=== PATIENT | male | born 1960 | race Caucasian/White ===

== ENCOUNTER → 2020-04-20 09:20 | Outpatient (BNVA) | payer BC, SELFPAY | PROVIDERS: PCP Internal Medicine; Visit Provider Urology | DX: Z76.89 Persons encountering health services in other specified circumstances (principal) ==

== ENCOUNTER → 2020-06-08 14:00 | Outpatient (BNVA) | payer BC, SELFPAY | PROVIDERS: PCP Internal Medicine; Visit Provider Surgery ==

== ENCOUNTER 2020-08-29 10:11 | Outpatient (REF) | payer BC, SELFPAY ==
[2020-08-29 10:14] LABS: MANUAL DIFF FLAG NO
[2020-08-29 10:29] LABS: Basophils Percent Auto 0.7 % (0-2); Eosinophils Absolute Auto 0.3 X10*3/uL (0.0-0.4); Eosinophils Percent Auto 4.8 % (0-4); Hematocrit 43.8 % (42-52); Hemoglobin 14.8 g/dl (14.0-18.0); Imm Gran Abs Auto 0.01 X10*3/uL (0.00-0.03); Imm Gran Pct Auto 0.2 % (0.0-0.4); Lymphocytes Absolute Auto 2.8 X10*3/uL (1.2-4.9); Lymphocytes Percent Auto 47.5 % (20-40); Mean Corpuscular HGB Conc 33.8 g/dl (31.0-36.0); Mean Corpuscular Volume 94.6 fL (80-98); Monocytes Absolute Auto 0.5 X10*3/uL (0.1-1.2); Monocytes Percent Auto 7.9 % (2-11); Neutrophils Absolute Auto 2.3 X10*3/uL (2.0-8.3); Neutrophils Percent Auto 38.9 % (45-73); Platelet Count 280 X10*3/uL (160-400); Red Blood Count 4.63 X10*6/uL (4.60-5.80); Red Cell Distribution Width 11.5 % (11.0-16.0); White Blood Count 5.8 X10*3/uL (4.8-10.8)
[2020-08-29 10:50] LABS: Estimated Average Glucose 103 mg/dL; Hemoglobin A1c % 5.2 %
[2020-08-29 10:53] LABS: Glucose Urine UA NEG (NEG); Leukocyte Esterase Urine NEG (NEG); Nitrite Urine NEG (NEG); Urine Blood NEG (NEG); Urine Ketones NEG (NEG); Urine Protein NEG (NEG-TRACE)
[2020-08-29 10:57] LABS: Appearance Urine CLEAR; Color Urine YELLOW
[2020-08-29 11:01] LABS: Alanine Aminotransferase 21 U/L (0-40); Albumin Level 4.4 g/dL (3.5-5.0); Alkaline Phosphatase 73 U/L (39-117); Anion Gap 14 (12-20); Aspartate Amino Transferase 18 U/L (5-37); Bilirubin Total 1.3 mg/dL (0.0-1.0); Blood Urea Nitrogen 14 mg/dL (9-16); Calcium 9.4 mg/dL (8.4-10.2); Carbon Dioxide 26 mmol/L (22-29); Chloride 105 mmol/L (96-108); Cholesterol 229 mg/dL; Estimated Glomerular Filt Rate > 60; Glucose Fasting 93 mg/dL (60-99); HDL Cholesterol 56 mg/dL; LDL Cholesterol Calculated 148 mg/dl; Potassium 4.4 mmol/L (3.3-5.1); Sodium 141 mmol/L (135-145); Triglycerides 126 mg/dL
[2020-08-29 11:26] LABS: PSA,Total (Free>4and<10) 0.49 ng/mL (0.00-4.00)
== END 2020-08-29 10:12 | disposition home or self-care (01) ==
LOC: HO.LNP 10:11
PROVIDERS: Visit Provider Internal Medicine
DX: Z00.00 Encounter for general adult medical examination without abnormal findings (principal); Z12.5 Encounter for screening for malignant neoplasm of prostate; R73.03 Prediabetes; E78.00 Pure hypercholesterolemia, unspecified; N40.0 Benign prostatic hyperplasia without lower urinary tract symptoms
CPT/HCPCS: 80053; 80061; 81003; 83036; 84153; 85025

== ENCOUNTER 2020-09-05 16:11 | Outpatient (REF) | payer BC, SELFPAY ==
[2020-09-05 16:15] LABS: MANUAL DIFF FLAG NO
[2020-09-05 16:18] LABS: Basophils Percent Auto 0.8 % (0-2); Eosinophils Absolute Auto 0.2 X10*3/uL (0.0-0.4); Eosinophils Percent Auto 3.5 % (0-4); Hematocrit 40.1 % (42-52); Hemoglobin 14.1 g/dl (14.0-18.0); Imm Gran Abs Auto 0.01 X10*3/uL (0.00-0.03); Imm Gran Pct Auto 0.2 % (0.0-0.4); Lymphocytes Absolute Auto 1.9 X10*3/uL (1.2-4.9); Lymphocytes Percent Auto 35.6 % (20-40); Mean Corpuscular HGB Conc 35.2 g/dl (31.0-36.0); Mean Corpuscular Hemoglobin 32.9 pg (27.0-33.0); Mean Corpuscular Volume 93.5 fL (80-98); Mean Platelet Volume 10.3 fL (9.4-12.4); Monocytes Absolute Auto 0.4 X10*3/uL (0.1-1.2); Monocytes Percent Auto 7.3 % (2-11); Neutrophils Absolute Auto 2.7 X10*3/uL (2.0-8.3); Neutrophils Percent Auto 52.6 % (45-73); Platelet Count 264 X10*3/uL (160-400); Red Blood Count 4.29 X10*6/uL (4.60-5.80); Red Cell Distribution Width 11.4 % (11.0-16.0); White Blood Count 5.2 X10*3/uL (4.8-10.8)
== END 2020-09-05 16:12 | disposition home or self-care (01) ==
LOC: HO.LNP 16:11
PROVIDERS: Visit Provider Internal Medicine
DX: D72.820 Lymphocytosis (symptomatic) (principal)
CPT/HCPCS: 85025

== ENCOUNTER 2021-09-15 10:54 | Outpatient (REF) | payer BC, SELFPAY ==
[2021-09-15 11:00] LABS: MANUAL DIFF FLAG NO
[2021-09-15 11:31] LABS: Appearance Urine CLEAR; Basophils Absolute Auto 0.1 X10*3/uL (0.0-0.2); Basophils Percent Auto 0.8 % (0-2); Color Urine YELLOW; Eosinophils Absolute Auto 0.3 X10*3/uL (0.0-0.4); Eosinophils Percent Auto 4.2 % (0-4); Glucose Urine UA NEG (NEG); Hematocrit 43.5 % (42.0-52.0); Hemoglobin 14.6 g/dl (14.0-18.0); Imm Gran Abs Auto 0.01 X10*3/uL (0.00-0.03); Imm Gran Pct Auto 0.2 % (0.0-0.4); Leukocyte Esterase Urine NEG (NEG); Lymphocytes Absolute Auto 2.7 X10*3/uL (1.2-4.9); Lymphocytes Percent Auto 44.1 % (20-40); Mean Corpuscular HGB Conc 33.6 g/dl (31.0-36.0); Mean Corpuscular Hemoglobin 31.9 pg (27.0-33.0); Mean Corpuscular Volume 95.2 fL (80.0-98.0); Mean Platelet Volume 9.7 fL (9.4-12.4); Monocytes Absolute Auto 0.5 X10*3/uL (0.1-1.2); Monocytes Percent Auto 7.9 % (2-11); Neutrophils Absolute Auto 2.6 x10*3/uL (2.0-8.3); Neutrophils Percent Auto 42.8 % (45-73); Nitrite Urine NEG (NEG); Platelet Count 263 X10*3/uL (160-400); Red Blood Count 4.57 X10*6/uL (4.60-5.80); Urine Blood NEG (NEG); Urine Ketones NEG (NEG); Urine Protein NEG (NEG-TRACE); White Blood Count 6.2 X10*3/uL (4.8-10.8)
[2021-09-15 11:38] LABS: Estimated Average Glucose 105 mg/dL; Hemoglobin A1c % 5.3 %
[2021-09-15 11:39] LABS: Alanine Aminotransferase 28 U/L (0-40); Albumin Level 4.1 g/dL (3.5-5.0); Alkaline Phosphatase 70 U/L (39-117); Anion Gap 12 (12-20); Aspartate Amino Transferase 24 U/L (5-37); Bilirubin Total 1.2 mg/dL (0.0-1.0); Blood Urea Nitrogen 12 mg/dL (9-16); Calcium 9.1 mg/dL (8.4-10.2); Carbon Dioxide 26 mmol/L (22-29); Chloride 106 mmol/L (96-108); Cholesterol 246 mg/dL; Estimated Glomerular Filt Rate > 60; Glucose Fasting 92 mg/dL (60-99); HDL Cholesterol 52 mg/dL; LDL Cholesterol Calculated 166 mg/dl; Potassium 4.2 mmol/L (3.3-5.1); Sodium 140 mmol/L (135-145); Total Protein 6.8 g/dL (6.5-8.0); Triglycerides 143 mg/dL
[2021-09-15 11:55] LABS: RBC Urine 0 /HPF (0); WBC Urine 0 /HPF (0-4)
[2021-09-15 12:03] LABS: Creatinine Urine 110.65 mg/dL; Microalbumin Urine < 5.0 mg/L
[2021-09-15 12:04] LABS: PSA,Total (Free>4and<10) 0.38 ng/mL (0.00-4.00)
== END 2021-09-15 10:55 | disposition home or self-care (01) ==
LOC: HO.LNP 10:54
PROVIDERS: Visit Provider Internal Medicine
DX: Z00.00 Encounter for general adult medical examination without abnormal findings (principal); Z12.5 Encounter for screening for malignant neoplasm of prostate; R73.03 Prediabetes; E78.00 Pure hypercholesterolemia, unspecified; N40.0 Benign prostatic hyperplasia without lower urinary tract symptoms; D72.820 Lymphocytosis (symptomatic)
CPT/HCPCS: 80053; 80061; 81001; 82043; 83036; 84153; 85025

== ENCOUNTER 2022-07-14 11:32 | Emergency (ER) | payer BC, SELFPAY ==
--- NOTE | 2022-07-14 11:52 | ED.GENADULT ---
HPI - General Adult General Chief complaint: General Medical <LIDA Moulton - Last Filed: 07/14/22 11:58> Stated complaint: high blood pressure <LIDA Moulton - Last Filed: 07/14/22 11:58> Time Seen by Provider: 07/14/22 14:28 <LIDA Moulton - Last Filed: 07/14/22 11:58> Source: patient <Eunice Grimm NP - Last Filed: 07/14/22 15:07> Mode of arrival: ambulatory <Eunice Grimm NP - Last Filed: 07/14/22 15:07> Limitations: no limitations <Eunice Grimm NP - Last Filed: 07/14/22 15:07> History of Present Illness HPI narrative: 61-year-old male with history of GERD currently on unknown dose of omeprazole with complaints of upper abdominal pain since drinking alcohol Saturday evening. No associated nausea, vomiting, diarrhea, constipation, fevers, chills. Patient reports since he started experiencing upper abdominal pain he has been checking his will pressure daily at home and his blood pressure has been elevated at home with systolic blood pressure 150 through 180. Patient denies any history of hypertension but does state that for the last 2 years his primary has been keeping an eye on his blood pressure has a has been borderline. He denies any associated chest pain, shortness of breath, vision changes, dizziness, headache, vomiting <Eunice Grimm NP - Last Filed: 07/14/22 15:07> Related Data Home medications: Home Medications Medication Instructions Recorded Confirmed omeprazole 10 mg capsule,delayed 10 mg PO DAILY 04/20/20 06/08/20 release Previous Rx's Medication Instructions Recorded amlodipine 5 mg tablet (Norvasc) 5 mg PO DAILY #30 tabs 07/14/22 <LIDA Moulton Last Filed: 07/14/22 11:58> Allergies/adverse reactions: Allergies Allergy/AdvReac Type Severity Reaction Status Date / Time No Known Allergies Allergy Unverified 04/20/20 09:32 [No Known Allergies*] <LIDA Moulton Last Filed: 07/14/22 11:58> Review of Systems Review of Systems: Yes all other systems are reviewed and are negative <Eunice Grimm [facility] NURSE - Last Filed: 07/14/22 15:07> Constitutional: Constitutional: Reports no additional constitutional complaints, Denies body ache(s), Denies chills, Denies fever(s), Denies headache(s) and Denies weakness <Eunice Grimm [facility] NURSE - Last Filed: 07/14/22 15:07> Eyes: Eyes: Reports no additional eye complaints and Denies change in vision <Eunice Grimm [facility] NURSE - Last Filed: 07/14/22 15:07> ENT: Reports system reviewed and no additional complaints, except as documented, Denies dizziness, Denies headache(s), Denies nasal congestion, Denies nasal discharge and Denies neck pain <Eunice Grimm [facility] NURSE - Last Filed: 07/14/22 15:07> Cardiovascular: Cardiovascular: Reports no additional cardiovascular complaints, Denies chest pain, Denies leg edema and Denies dyspnea <Eunice Grimm [facility] NURSE - Last Filed: 07/14/22 15:07> Respiratory: Respiratory: Reports no additional respiratory complaints, Denies cough and Denies dyspnea <Eunice Grimm [facility] NURSE - Last Filed: 07/14/22 15:07> Gastrointestinal: Gastrointestinal: Reports no additional gastrointestinal complaints, Reports abdominal pain, Denies diarrhea, Denies nausea and Denies vomiting <Eunice Grimm [facility] NURSE - Last Filed: 07/14/22 15:07> Genitourinary: Genitourinary: Denies urinary incontinence <Eunice Grimm, [facility] NURSE - Last Filed: 07/14/22 15:07> Musculoskeletal: Musculoskeletal: Reports no additional musculoskeletal complaints, Denies back pain, Denies arthralgias, Denies joint swelling, Denies neck pain, Denies numbness and Denies tingling <Eunice Grimm [facility] NURSE - Last Filed: 07/14/22 15:07> Integumentary/Breasts: Skin/Breast: Reports system reviewed and no additional complaints, except as docu and Denies rash <Eunice Grimm [facility] NURSE - Last Filed: 07/14/22 15:07> Neurologic: Reports system reviewed and no additional complaints, except as documented, Denies dizziness, Denies headache(s), Denies numbness, Denies tingling and Denies weakness <Eunice Grimm NP - Last Filed: 07/14/22 15:07> [facility] Past Medical History Attestation statement: The following information was validated with the patient. <Eunice Grimm NP - Last Filed: 07/14/22 15:07> Source: old records reviewed and nursing notes reviewed <Eunice Grimm NP - Last Filed: 07/14/22 15:07> Medical History: Medical History (Updated 07/14/22 @ 14:53 by Ximena Kim RN) GERD (gastroesophageal reflux disease) <LIDA Moulton - Last Filed: 07/14/22 11:58> Surgical History: Surgical History History of left inguinal hernia repair (12/14/19) <LIDA Moulton - Last Filed: 07/14/22 11:58> Social History Social History: Social History Alcohol intake: current Alcohol intake frequency: holidays/special occasions only Smoked in Last 30 Days: No Use of substances other than those prescribed or required for medical reasons: No Advance Directives: Yes Advance Directives Information Provided: No Advance Directives on File: No <LIDA Moulton - Last Filed: 07/14/22 11:58> Physical Exam ED Vital Signs: Vital Signs - 24 hr 07/14/22 11:53 07/14/22 14:50 Temperature 97.1 F 98.5 F Pulse Rate 82 62 Respiratory Rate 18 18 Blood Pressure 179/91 H 163/82 H Pulse Oximetry 98 98 Oxygen Delivery Method Room Air Room Air BMI result Body Mass Index 27.1 <LIDA Moulton - Last Filed: 07/14/22 11:58> Vital Signs - 24 hr 07/14/22 11:53 07/14/22 14:50 Temperature 97.1 F 98.5 F Pulse Rate 82 62 Respiratory Rate 18 18 Blood Pressure 179/91 H 163/82 H Pulse Oximetry 98 98 Oxygen Delivery Method Room Air Room Air BMI result Body Mass Index 27.1 <Eunice Grimm [facility] NURSE - Last Filed: 07/14/22 15:07> Const General: cooperative, healthy appearing, comfortable and no acute distress <Eunice Grimm NP - Last Filed: 07/14/22 15:07> Orientation/consciousness: patient oriented x3 <Eunice Grimm [facility] NURSE - Last Filed: 07/14/22 15:07> Limitations: no limitations <Eunice Grimm [facility] NURSE - Last Filed: 07/14/22 15:07> HENMT Head: Yes normal to inspection <Eunice Grimm [facility] NURSE - Last Filed: 07/14/22 15:07> Ears: hearing grossly normal bilaterally <Eunice Grimm [facility] NURSE - Last Filed: 07/14/22 15:07> General nose exam: Normal external nose present <Eunice Grimm NP - Last Filed: 07/14/22 15:07> Face and sinus: Yes normal facial exam <uEnice Grimm [facility] NURSE - Last Filed: 07/14/22 15:07> Mouth: Normal oral and palatal mucosa present <Eunice Grimm [facility] NURSE - Last Filed: 07/14/22 15:07> Throat: Yes posterior oropharynx normal, Yes tonsils normal and Yes uvula midline <Eunice Grimm [facility] NURSE - Last Filed: 07/14/22 15:07> Eyes General: appearance normal, both eyes and all related structures <Eunice Grimm NP - Last Filed: 07/14/22 15:07> Pupils: Equal, round and reactive pupils present <Eunice Grimm NP - Last Filed: 07/14/22 15:07> Direct Ophthalmoscopy: anterior chamber normal <Eunice Grimm NP - Last Filed: 07/14/22 15:07> Neck Neck: Yes normal visual inspection, Yes full ROM and Yes no lymphadenopathy <Eunice Grimm [facility] NURSE - Last Filed: 07/14/22 15:07> Chest Chest palpation & inspection: normal inspection of the chest <Eunice Grimm NP - Last Filed: 07/14/22 15:07> Resp Effort & Inspection: normal respiratory effort <Eunice Grimm [facility] NURSE - Last Filed: 07/14/22 15:07> Auscultation: clear to auscultation bilaterally <Eunice Grimm [facility] NURSE - Last Filed: 07/14/22 15:07> Cardio Rate: regular rate <Eunice Grimm [facility] NURSE - Last Filed: 07/14/22 15:07> Rhythm: regular rhythm <Eunice Grimm, [facility] NURSE - Last Filed: 07/14/22 15:07> Peripheral pulses: Peripheral pulses 2+ throughout <Eunice Grimm, [facility] NURSE - Last Filed: 07/14/22 15:07> GI Inspection: Yes normal to inspection <Eunice Grimm [facility] NURSE - Last Filed: 07/14/22 15:07> Palpation (GI): Soft to palpation and nontender <Eunice Grimm [facility] NURSE - Last Filed: 07/14/22 15:07> Auscultation: normal bowel sounds <Eunice Grimm [facility] NURSE - Last Filed: 07/14/22 15:07> General: Yes no CVA tenderness <Eunice Grimm [facility] NURSE - Last Filed: 07/14/22 15:07> Back/Spine/Pelvis Back: no CVA tenderness <Eunice Grimm, [facility] NURSE - Last Filed: 07/14/22 15:07> Thoracic/Lumbar Spine: thoracic and lumbar spine normal to inspection <Eunice Grimm [facility] NURSE - Last Filed: 07/14/22 15:07> Skin General skin exam: no rashes or lesions noted <Eunice Grimm [facility] NURSE - Last Filed: 07/14/22 15:07> Neuro General: patient oriented x3 and moves all extremities <Eunice Grimm [facility] NURSE - Last Filed: 07/14/22 15:07> Cranial nerves: Yes CN's II-XII intact bilaterally, Yes Equal, round and reactive pupils present, Yes Bilaterally intact EOM present, Yes Nystagmus not present, Yes Normal facial strength present and Yes Midline tongue present <Eunice Grimm [facility] NURSE - Last Filed: 07/14/22 15:07> Cognition (Neuro): normal cognition <Eunice Grimm NP - Last Filed: 07/14/22 15:07> Gait exam (Neuro): Normal gait present <Eunice Grimm NP - Last Filed: 07/14/22 15:07> Motor exam (neuro): 5/5 motor strength present throughout <Eunice Grimm NP - Last Filed: 07/14/22 15:07> Sensory Exam: Normal double simultaneous stimulation for sensation <Eunice Grimm NP - Last Filed: 07/14/22 15:07> Extrem General: Yes normal to inspection, Yes no pedal edema and Yes no calf tenderness <Eunice Grimm NP - Last Filed: 07/14/22 15:07> Course Course Course Narrative: RME--61yo M w/PMHx reflux c/o elevated BP at home 180-170's over 90's and epigastric pain over the past week. Admits symptoms exacerbated after drinking heavily last weekend. Denies taking BP meds at home. Denies CP/SOB, headache, vision change/loss. Blood pressure 179/91 in triage EKG, labs, Maalox/Pepcid ordered <LIDA Moulton - Last Filed: 07/14/22 11:58> Reevaluation(s) Reevaluation #1: Labs unremarkable. EKG shows no ischemic changes and is unchanged previous EKG. Abdomen is soft nontender. Low concern for acute abdominal pathology. Patient is mildly hypertensive but is asymptomatic. Will start patient on low-dose blood pressure medication and recommend he follow up outpatient with primary care doctor. <Eunice Grimm NP - Last Filed: 07/14/22 15:07> Medications Administered Discontinued Medications Generic Name Dose Route Start Last Admin Trade Name Freq PRN Reason Stop Dose Admin Al Hydroxide/Mg Hydroxide 30 ml 07/14/22 11:54 07/14/22 14:50 Magnesium Hydrox/Alum Hydrox 30 Ml Oral.Susp PO 07/14/22 11:55 30 ml ONCE ONE Administration Famotidine 20 mg 07/14/22 11:54 07/14/22 14:50 Famotidine 20 Mg Tablet PO 07/14/22 11:55 20 mg ONCE ONE Administration <LIDA Moulton - Last Filed: 07/14/22 11:58> Medications Administered Discontinued Medications Generic Name Dose Route Start Last Admin Trade Name Manasa PRN Reason Stop Dose Admin Al Hydroxide/Mg Hydroxide 30 ml 07/14/22 11:54 07/14/22 14:50 Magnesium Hydrox/Alum Hydrox 30 Ml Oral.Susp PO 07/14/22 11:55 30 ml ONCE ONE Administration Famotidine 20 mg 07/14/22 11:54 07/14/22 14:50 Famotidine 20 Mg Tablet PO 07/14/22 11:55 20 mg ONCE ONE Administration <Eunice Grimm NP - Last Filed: 07/14/22 15:07> Medical Decision Making Medical Decision Making MDM Narrative: This is a 61-year-old male who presents to the ER with complaints of upper abdominal pain since drinking alcohol Saturday evening which is been unrelieved with his omeprazole home. Incidentally he has noted that his blood pressure has been elevated at home over the last week. Of note, he reports his blood pressures and borderline over the last few years in his primary than keeping an eye on it but is not currently taking medication for his blood pressure. He denies any other associated symptoms He has a normal neuro exam His abdomen is soft nontender Will obtain labs, EKG <Eunice Grimm NP - Last Filed: 07/14/22 15:07> Differential Diagnosis Differential Diagnoses: The differential diagnosis associated with the presentation includes <Eunice Grimm NP - Last Filed: 07/14/22 15:07> Less likely ACS, hypertensive crisis Low concern for acute abdominal pathology-no reports of black or bloody stools or hematemesis suggest gastric ulcer or GI bleed, no focal tenderness to suggest appendicitis or cholecystitis <Eunice Grimm NP - Last Filed: 07/14/22 15:07> Lab Data MDM Lab Attestation statement: I reviewed the patient's lab results. <Eunice Grimm NP - Last Filed: 07/14/22 15:07> Result Diagrams: 07/14/22 12:01 07/14/22 12:01 <LIDA Moulton - Last Filed: 07/14/22 11:58> Labs: Lab Results 07/14/22 07/14/22 07/14/22 Range/Units 12:01 12:01 12:01 WBC 5.6 (4.8-10.8) X10*3/uL RBC 4.81 (4.60-5.80) X10*6/uL Hgb 15.4 (14.0-18.0) g/dl Hct 43.4 (42.0-52.0) % MCV 90.2 (80.0-98.0) fL MCH 32.0 (27.0-33.0) pg MCHC 35.5 (31.0-36.0) g/dl RDW 11.6 (11.0-16.0) % Plt Count 263 (160-400) X10*3/uL MPV 9.3 L (9.4-12.4) fL Immature Gran % (Auto) 0.2 (0.0-0.4) % Neut % (Auto) 60.8 (45-73) % Lymph % (Auto) 27.7 (20-40) % Foster % (Auto) 7.5 (2-11) % Eos % (Auto) 2.9 (0-4) % Baso % (Auto) 0.9 (0-2) % Lymph # (Auto) 1.6 (1.2-4.9) X10*3/uL Foster # (Auto) 0.4 (0.1-1.2) X10*3/uL Eos # (Auto) 0.2 (0.0-0.4) X10*3/uL Baso # (Auto) 0.1 (0.0-0.2) X10*3/uL Abs Immat Gran (auto) 0.01 (0.00-0.03) X10*3/uL Absolute Neuts (auto) 3.4 (2.0-8.3) x10*3/uL Absolute Nucleated RBC 0.000 (0.0-0.012) X10*3/uL Nucleated RBC % (auto) 0.0 (0.0-0.2) /100WBC Sodium 139 (135-145) mmol/L Potassium 4.3 (3.3-5.1) mmol/L Chloride 108 (96-108) mmol/L Carbon Dioxide 22 (22-29) mmol/L Anion Gap 13 (12-20) BUN 12 (9-16) mg/dL Creatinine 0.84 (0.5-1.4) mg/dL Estim Creat Clear Calc 94.1 Estimated GFR > 60 Random Glucose 112 (60-115) mg/dL Calcium 9.1 (8.4-10.2) mg/dL Total Bilirubin 1.7 H (0.0-1.0) mg/dL Direct Bilirubin 0.4 (0.0-0.5) mg/dL AST 22 (5-37) U/L ALT 19 (0-40) U/L Alkaline Phosphatase 65 (39-117) U/L Troponin I High Sens < 3.5 (<3.5-35.0) ng/L Total Protein 6.8 (6.5-8.0) g/dL Albumin 4.4 (3.5-5.0) g/dL Lipase 23 (8-78) U/L <LIDA Moulton - Last Filed: 07/14/22 11:58> Lab Results 07/14/22 07/14/22 07/14/22 Range/Units 12:01 12:01 12:01 WBC 5.6 (4.8-10.8) X10*3/uL RBC 4.81 (4.60-5.80) X10*6/uL Hgb 15.4 (14.0-18.0) g/dl Hct 43.4 (42.0-52.0) % MCV 90.2 (80.0-98.0) fL MCH 32.0 (27.0-33.0) pg MCHC 35.5 (31.0-36.0) g/dl RDW 11.6 (11.0-16.0) % Plt Count 263 (160-400) X10*3/uL MPV 9.3 L (9.4-12.4) fL Immature Gran % (Auto) 0.2 (0.0-0.4) % Neut % (Auto) 60.8 (45-73) % Lymph % (Auto) 27.7 (20-40) % Foster % (Auto) 7.5 (2-11) % Eos % (Auto) 2.9 (0-4) % Baso % (Auto) 0.9 (0-2) % Lymph # (Auto) 1.6 (1.2-4.9) X10*3/uL Foster # (Auto) 0.4 (0.1-1.2) X10*3/uL Eos # (Auto) 0.2 (0.0-0.4) X10*3/uL Baso # (Auto) 0.1 (0.0-0.2) X10*3/uL Abs Immat Gran (auto) 0.01 (0.00-0.03) X10*3/uL Absolute Neuts (auto) 3.4 (2.0-8.3) x10*3/uL Absolute Nucleated RBC 0.000 (0.0-0.012) X10*3/uL Nucleated RBC % (auto) 0.0 (0.0-0.2) /100WBC Sodium 139 (135-145) mmol/L Potassium 4.3 (3.3-5.1) mmol/L Chloride 108 (96-108) mmol/L Carbon Dioxide 22 (22-29) mmol/L Anion Gap 13 (12-20) BUN 12 (9-16) mg/dL Creatinine 0.84 (0.5-1.4) mg/dL Estim Creat Clear Calc 94.1 Estimated GFR > 60 Random Glucose 112 (60-115) mg/dL Calcium 9.1 (8.4-10.2) mg/dL Total Bilirubin 1.7 H (0.0-1.0) mg/dL Direct Bilirubin 0.4 (0.0-0.5) mg/dL AST 22 (5-37) U/L ALT 19 (0-40) U/L Alkaline Phosphatase 65 (39-117) U/L Troponin I High Sens < 3.5 (<3.5-35.0) ng/L Total Protein 6.8 (6.5-8.0) g/dL Albumin 4.4 (3.5-5.0) g/dL Lipase 23 (8-78) U/L <Eunice Grimm NP - Last Filed: 07/14/22 15:07> Independent Interpretation I performed an independent interpretation of an: EKG <Eunice Grimm NP - Last Filed: 07/14/22 15:07> Interpretation: I independently reviewed the EKG which is unchanged from previous EKGs and shows a ventricular rate of 59, normal [place], normal QT, nonspecific ST findings, RBBB <Eunice Grimm NP - Last Filed: 07/14/22 15:07> Discharge Plan Discharge Clinical Impression: Hypertension, Gastroesophageal reflux disease <LIDA Moulton - Last Filed: 07/14/22 11:58> Patient Disposition: Home, Self-Care <LIDA Moulton - Last Filed: 07/14/22 11:58> Instructions: Gastroesophageal Reflux Disease (DC), Hypertension (ED) <LIDA Moulton - Last Filed: 07/14/22 11:58> Additional Instructions: Take omeprazole 40 mg daily for the next 2 weeks. If you are already on this dose then add famotidine 40mg daily x 2 weeks. Follow a bland diet. Limit foods that may worsen your gastric reflux Start taking blood pressure medications Follow-up with primary care doctor for blood pressure recheck <LIDA Moulton - Last Filed: 07/14/22 11:58> Prescriptions: New amlodipine [Norvasc] 5 mg tablet 5 mg PO DAILY Qty: 30 0RF No Action omeprazole 10 mg capsule,delayed release(DR/EC) 10 mg PO DAILY <LIDA Moulton - Last Filed: 07/14/22 11:58> Referrals: Chencho Vyas MD [Primary Care Provider] - 1 week (blood pressure re-check) <LIDA Moulton - Last Filed: 07/14/22 11:58> Interventions: ED Discharge Assessment Last Done: 07/14/22 15:06 <LIDA Moulton - Last Filed: 07/14/22 11:58> Discharge Date/Time: 07/14/22 15:06 <LIDA Moulton - Last Filed: 07/14/22 11:58>
[2022-07-14 11:53] VITALS: BP 179/91; PULSE 82; RESP 18; TEMP 36.2; O2SAT 98; BMI 27.1
--- NOTE | 2022-07-14 11:54 | ECG_ITS ---
Test Reason : HTN. epigastric pain Blood Pressure : / mmHG Vent. Rate : 059 BPM Atrial Rate : 059 BPM P-R Int : 152 ms QRS Dur : 134 ms QT Int : 440 ms P-R-T Axes : 242 007 -29 degrees QTc Int : 435 ms Unusual P axis, possible ectopic atrial bradycardia Right bundle branch block T wave abnormality, consider inferolateral ischemia Abnormal ECG When compared with ECG of 19-NOV-2016 07:35, T wave inversion more evident in Lateral leads Referred By: Myla Noonan Electronically Signed By:DIMAS WALKER MD
[2022-07-14 12:06] LABS: MANUAL DIFF FLAG NO
[2022-07-14 12:08] LABS: Basophils Absolute Auto 0.1 X10*3/uL (0.0-0.2); Basophils Percent Auto 0.9 % (0-2); Eosinophils Absolute Auto 0.2 X10*3/uL (0.0-0.4); Eosinophils Percent Auto 2.9 % (0-4); Hematocrit 43.4 % (42.0-52.0); Hemoglobin 15.4 g/dl (14.0-18.0); Imm Gran Abs Auto 0.01 X10*3/uL (0.00-0.03); Imm Gran Pct Auto 0.2 % (0.0-0.4); Lymphocytes Absolute Auto 1.6 X10*3/uL (1.2-4.9); Lymphocytes Percent Auto 27.7 % (20-40); Mean Corpuscular HGB Conc 35.5 g/dl (31.0-36.0); Mean Corpuscular Volume 90.2 fL (80.0-98.0); Mean Platelet Volume 9.3 fL (9.4-12.4); Monocytes Absolute Auto 0.4 X10*3/uL (0.1-1.2); Monocytes Percent Auto 7.5 % (2-11); Neutrophils Absolute Auto 3.4 x10*3/uL (2.0-8.3); Neutrophils Percent Auto 60.8 % (45-73); Platelet Count 263 X10*3/uL (160-400); Red Blood Count 4.81 X10*6/uL (4.60-5.80); Red Cell Distribution Width 11.6 % (11.0-16.0); White Blood Count 5.6 X10*3/uL (4.8-10.8)
[2022-07-14 12:30] LABS: Alanine Aminotransferase 19 U/L (0-40); Albumin Level 4.4 g/dL (3.5-5.0); Alkaline Phosphatase 65 U/L (39-117); Anion Gap 13 (12-20); Aspartate Amino Transferase 22 U/L (5-37); Bilirubin Direct 0.4 mg/dL (0.0-0.5); Bilirubin Total 1.7 mg/dL (0.0-1.0); Blood Urea Nitrogen 12 mg/dL (9-16); Calcium 9.1 mg/dL (8.4-10.2); Carbon Dioxide 22 mmol/L (22-29); Chloride 108 mmol/L (96-108); Creatinine Clr Calc Pharmacy 94.1; Estimated Glomerular Filt Rate > 60; Glucose Random 112 mg/dL (60-115); Lipase 23 U/L (8-78); Potassium 4.3 mmol/L (3.3-5.1); Sodium 139 mmol/L (135-145); Total Protein 6.8 g/dL (6.5-8.0)
[2022-07-14 12:45] LABS: Troponin-I High Sensitivity < 3.5 ng/L (<3.5-35.0)
[2022-07-14 14:50] VITALS: BP 163/82; PULSE 62; RESP 18; TEMP 36.9; O2SAT 98
[2022-07-14] MEDS: Famotidine 20 MG TABLET PO (14:50)
[2022-07-14] MEDS: Magnesium Hydrox/Alum Hydrox 30 ML ORAL.SUSP PO (14:50)
--- NOTE | 2022-07-14 14:54 | PC.NURSE ---
patient a&ox3, cardiac specialist applied, vitals stable, pt medicated per order, ekg and labs previously drawn, call richardson within reach will continue to monitor
== END 2022-07-14 15:06 | disposition home or self-care (01) ==
PROVIDERS: Physician Assistant; Emergency Provider Emergency Medicine; PCP Internal Medicine
DX: I10 Essential (primary) hypertension (principal); K21.9 Gastro-esophageal reflux disease without esophagitis; Z79.899 Other long term (current) drug therapy
CPT/HCPCS: 36415; 80048; 80076; 83690; 84484; 85025; 93005; 99283; 99284

== ENCOUNTER 2022-09-14 16:03 | Emergency (ER) | payer BC, SELFPAY ==
[2022-09-14 16:41] VITALS: BP 158/89; PULSE 68; RESP 18; TEMP 36.7; O2SAT 97; BMI 25.8
--- NOTE | 2022-09-14 16:41 | ED.GIBLEED ---
HPI - GI Bleed General Chief complaint: General Medical Stated complaint: bleeding hemorrhoid Time Seen by Provider: 09/14/22 16:41 Source: patient Mode of arrival: ambulatory Limitations: no limitations History of Present Illness HPI Narrative: Tissues in the emergency department complaining of rectal pain and external hemorrhoids. He notes a history of external hemorrhoids but has never sought treatment. He states that he has a large external hemorrhoid and was wiping when he caused the area to bleed. He notes saturating his underwear but believes the bleeding has resolved spontaneously. He states that he takes Garlique but no other blood thinners. He denies fevers, chills, abdominal pain, nausea vomiting, changes in bladder habits, or other systemic complaints. Related Data Home Medications Medication Instructions Recorded Confirmed omeprazole 10 mg capsule,delayed 10 mg PO DAILY 04/20/20 06/08/20 release Previous Rx's Medication Instructions Recorded amlodipine 5 mg tablet (Norvasc) 5 mg PO DAILY #30 tabs 07/14/22 docusate sodium 100 mg tablet 100 mg PO BID #30 tabs 09/14/22 polyethylene glycol 3350 17 17 g PO DAILY #238 grams 09/14/22 gram/dose oral powder (Miralax) Allergies Allergy/AdvReac Type Severity Reaction Status Date / Time No Known Allergies Allergy Verified 09/14/22 16:41 [No Known Allergies*] Review of Systems Review of Systems: Yes all other systems are reviewed and are negative [facility] Past Medical History Medical History (Updated 09/14/22 @ 16:55 by LIDA Crawford) GERD (gastroesophageal reflux disease) Surgical History History of left inguinal hernia repair (12/14/19) Social History Social History Alcohol intake: current Alcohol intake frequency: holidays/special occasions only Physical Exam Vital Signs: None vital signs reviewed. Patient appears resting comfortably lying supine in bed. His abdomen is soft and nontender. Physical exam of his rectum was performed with the guardian present. There is a large nonischemic hemorrhoid at the 11 o'clock position. There is superficial eschar present with dried blood. No fissure or other acute findings. Medical Decision Making Medical Decision Making MDM Narrative: 61-year-old male with a history of hemorrhoids presenting with an external hemorrhoid bleed. Exam shows a non active bleeding large external hemorrhoid with a superficial eschar present. Does not appear thrombosed. At this time will recommend conservative treatment and follow-up with surgery. He understands return precautions and agrees with plan. Differential Diagnosis External hemorrhoid, internal hemorrhoids, thrombosed hemorrhoid, anal fissure, GI bleed. Discharge Plan Discharge Clinical Impression: Bleeding external hemorrhoids Patient Disposition: Home, Self-Care Instructions: Hemorrhoids (ED) Additional Instructions: Your exam is consistent with an external bleeding hemorrhoids. Take Colace and MiraLax to help have soft bowel movements. Avoid scrubbing the area. Use soft toilet paper. Contact the general surgeon to schedule follow-up for further evaluation as soon as possible. Return for any new or worsening symptoms. Prescriptions: New docusate sodium 100 mg tablet 100 mg PO BID Qty: 30 0RF polyethylene glycol 3350 [Miralax] 17 gram/dose powder 17 g PO DAILY Qty: 238 0RF No Action amlodipine [Norvasc] 5 mg tablet 5 mg PO DAILY Qty: 30 0RF omeprazole 10 mg capsule,delayed release(DR/EC) 10 mg PO DAILY Referrals: [facility] [place] General Surgeons [Provider Group]
== END 2022-09-14 17:08 | disposition home or self-care (01) ==
PROVIDERS: Emergency Provider Physician Assistant; PCP Internal Medicine
DX: K64.4 Residual hemorrhoidal skin tags (principal)
CPT/HCPCS: 99282; 99283

== ENCOUNTER 2022-09-18 11:09 | Outpatient (REF) | payer BC, SELFPAY ==
[2022-09-18 11:14] LABS: MANUAL DIFF FLAG NO
[2022-09-18 11:24] LABS: Basophils Absolute Auto 0.1 X10*3/uL (0.0-0.2); Eosinophils Absolute Auto 0.1 X10*3/uL (0.0-0.4); Eosinophils Percent Auto 2.2 % (0-4); Hematocrit 41.9 % (42.0-52.0); Hemoglobin 14.1 g/dl (14.0-18.0); Imm Gran Abs Auto 0.01 X10*3/uL (0.00-0.03); Imm Gran Pct Auto 0.2 % (0.0-0.4); Lymphocytes Absolute Auto 2.8 X10*3/uL (1.2-4.9); Lymphocytes Percent Auto 46.8 % (20-40); Mean Corpuscular HGB Conc 33.7 g/dl (31.0-36.0); Mean Corpuscular Hemoglobin 31.8 pg (27.0-33.0); Mean Corpuscular Volume 94.4 fL (80.0-98.0); Mean Platelet Volume 9.8 fL (9.4-12.4); Monocytes Absolute Auto 0.5 X10*3/uL (0.1-1.2); Monocytes Percent Auto 8.2 % (2-11); Neutrophils Absolute Auto 2.5 x10*3/uL (2.0-8.3); Neutrophils Percent Auto 41.6 % (45-73); Platelet Count 286 X10*3/uL (160-400); Red Blood Count 4.44 X10*6/uL (4.60-5.80); Red Cell Distribution Width 11.9 % (11.0-16.0); White Blood Count 5.9 X10*3/uL (4.8-10.8)
[2022-09-18 11:32] LABS: Appearance Urine Clear; Color Urine Yellow; Glucose Urine UA Negative (Negative); Leukocyte Esterase Urine Trace (Negative); Nitrite Urine Negative (Negative); PH 6.5 (5.0-9.0); Specific Gravity - Urine 1.015 (1.005-1.025); UMIC TRIGGER UACC YES; Urine Blood Negative (Negative); Urine Ketones Negative (Negative); Urine Protein Negative (Neg-Trace)
[2022-09-18 11:36] LABS: Bacteria Urine None Seen (None Seen); Estimated Average Glucose 100 mg/dL; Hemoglobin A1c % 5.1 %; Hyaline Casts Urine 0-2 /LPF (0-2); RBC Urine 0-2 /HPF (0-2); Squamous Epithelial Cell Urine 0-2 /HPF (0-2); WBC Urine 0-5 /HPF (0-5)
[2022-09-18 11:42] LABS: Alanine Aminotransferase 19 U/L (0-40); Alkaline Phosphatase 77 U/L (39-117); Anion Gap 11 (12-20); Aspartate Amino Transferase 17 U/L (5-37); Blood Urea Nitrogen 11 mg/dL (9-16); Calcium 9.3 mg/dL (8.4-10.2); Carbon Dioxide 27 mmol/L (22-29); Chloride 108 mmol/L (96-108); Cholesterol 210 mg/dL; Estimated Glomerular Filt Rate > 60; Glucose Fasting 89 mg/dL (60-99); HDL Cholesterol 53 mg/dL; LDL Cholesterol Calculated 137 mg/dl; Potassium 4.6 mmol/L (3.3-5.1); Sodium 141 mmol/L (135-145); Total Protein 6.6 g/dL (6.5-8.0); Triglycerides 103 mg/dL
[2022-09-18 11:56] LABS: Creatinine Urine 119.84 mg/dL
[2022-09-18 11:59] LABS: PSA,Total (Free>4and<10) 0.57 ng/mL (0.00-4.00)
== END 2022-09-18 11:10 | disposition home or self-care (01) ==
LOC: HO.LNP 11:09
PROVIDERS: Visit Provider Internal Medicine
DX: Z00.00 Encounter for general adult medical examination without abnormal findings (principal); R73.09 Other abnormal glucose; E78.00 Pure hypercholesterolemia, unspecified; N40.0 Benign prostatic hyperplasia without lower urinary tract symptoms; I10 Essential (primary) hypertension; D72.820 Lymphocytosis (symptomatic); Z12.5 Encounter for screening for malignant neoplasm of prostate
CPT/HCPCS: 80053; 80061; 81001; 82043; 83036; 84153; 85025

== ENCOUNTER 2022-11-22 06:14 | Day surgery (SDC) | payer BC, SELFPAY ==
[2022-11-22 06:32] VITALS: BMI 26.6
[2022-11-22 06:38] VITALS: BP 130/78; PULSE 55; RESP 18; TEMP 36.1; O2SAT 96
[2022-11-22] MEDS: Lactated Ringers 1,000 ML 50 ML IVCONT (06:57)
--- NOTE | 2022-11-22 07:21 | HO.ANESPROP2 ---
HPI - Anesthesia Eval Consult details Narrative: for EGD and colonoscopy [facility] Active Problems Active Problems: All Active Problems (Updated 09/15/22 @ 00:02 by Background Daemon) Epididymal cyst (Acute) Recurrent left inguinal hernia (Acute) Past Medical History Medical History (Updated 09/15/22 @ 00:02 by Background Daemon) GERD (gastroesophageal reflux disease) Family History Family history of problems with anesthesia: No Surgical History Surgical History History of left inguinal hernia repair (12/14/19) History of Problems with Anesthesia: No Social History Social History Alcohol intake: current Alcohol intake frequency: holidays/special occasions only Patient Tobacco Use Status: Never used Tobacco Use of substances other than those prescribed or required for medical reasons: No Are you DNR?: No Advance Directives: No Advance Directives Information Provided: Yes Meds Allergies Allergy/AdvReac Type Severity Reaction Status Date / Time No Known Allergies Allergy Verified 09/14/22 16:41 [No Known Allergies*] Active Medications: Current Medications Lactated Ringer's (Lr) 1,000 mls @ 50 mls/hr IVCONT .Q20H DIANA Last Admin: 11/22/22 06:57 Dose: 50 mls/hr Sodium Biphosphate/Sodium Phosphate (Sodium Phosphate,Kerr-Dibasic 133 Ml Enema) 133 ml VT ONCE PRN PRN Reason: Poor Colonoscopy Prep Results Home Medications Medication Instructions Recorded Confirmed Last Taken Type omeprazole 10 mg capsule,delayed 10 mg PO DAILY PRN Gastric Reflux 04/20/20 11/22/22 Unknown History release Exam Exam Date and Time: November 22, 2022 0721 Height,Weight and Vital Signs: Height 5 ft 9 in Weight 81.647 kg Last Vital Signs Temp 97.0 F 11/22/22 06:38 Pulse 55 11/22/22 06:38 Resp 18 11/22/22 06:38 BP 130/78 11/22/22 06:38 Pulse Ox 96 11/22/22 06:38 O2 Del Method Room Air 11/22/22 06:38 Airway Mallampati Class: II TM Dist: >3cm Neck ROM: Full Loose/Missing/Broken Teeth: No Heart: ok Lungs: ok Assessment and Plan Assessment Anesthesia Assessment: Anesthesia Plan Discussed and Chart Reviewed Final Anesthetic Review Family History of Problems with Anesthesia: No History of Problems with Anesthesia: No NPO: Yes ASA Class: II Final Preanesthetic Review: No Changes in Pt Med Stat, Meds/Allgs Chart Reviewed, Consent Obtained/Reviewed and Anes Risks/Benef Reviewed Patient Risk: Low Procedure Risk: Intermediate Anesthetic Plan Anesthetic Plan: MAC: and Agree w/ Assess. and Plan Disposition: Standard PACU
[2022-11-22 08:27] VITALS: BP 146/74; PULSE 56; RESP 18; TEMP 36.3; O2SAT 95
--- NOTE | 2022-11-22 08:31 | PM.OP ---
Brief Operative Note Date of Service: 11/22/22 Pre-op diagnosis: Heme + stool, GERD Post-op diagnosis: other (Hiatal hernia, GERD, Diverticulosis) Procedure: EGD with biopsies, Colonoscopy to the cecum and TI Surgeon: Juan Aguilar Anesthesia: MAC Was an Construction Scheduler used for this Procedure?: No Estimated blood loss (mL): 2.0 Pathology: other (A. EG Junction at 38cm B. Gastric antrum) Condition: stable Disposition: PACU
[2022-11-22 08:44] VITALS: BP 136/58; PULSE 57; RESP 18; TEMP 36.3; O2SAT 100
--- NOTE | 2022-11-22 09:11 | OP_ITS ---
DATE OF SERVICE: 11/22/2022 SURGEON: Juan Aguilar MD INDICATIONS: The patient presents for evaluation of heme-positive stool and gastroesophageal reflux. Full consent has been obtained from him for this, including risks of bleeding and perforation. PREOPERATIVE DIAGNOSIS: Gastroesophageal reflux and heme-positive stool. POSTOPERATIVE DIAGNOSIS: Gastroesophageal reflux and heme-positive stool, small hiatal hernia, mild gastritis, diverticulosis and internal hemorrhoids. PROCEDURE PERFORMED: Esophagogastroduodenoscopy with biopsies and colonoscopy to the cecum and terminal ileum. ESTIMATED BLOOD LOSS: COMPLICATIONS: ANESTHESIA: Monitored anesthesia care. ASSISTANTS: SPECIMENS: DESCRIPTION OF PROCEDURE: The patient was placed in the left lateral decubitus position. The Olympus video gastroscope was passed in the posterior oropharynx and upper esophagus under direct vision. The scope was passed slowly to the distal esophagus. The gastroesophageal junction appeared at 38 cm. There was a very minimal irregularity consistent with reflux, but no definitive evidence of Bergman's mucosa. There was no esophagitis. The scope entered the stomach and there was a small hiatal hernia. The scope was advanced to the pylorus and the duodenum was cannulated to the descending portion. The duodenum including the bulb appeared normal without mass or ulceration. The scope was withdrawn back to the stomach. The gastric antrum and body had some mild areas of erythema, but no erosions or ulceration. There was good peristalsis. Biopsies were obtained from the gastric antrum. The scope was retroflexed visualizing the proximal stomach carefully, which appeared normal, without any sign of mass or ulceration. The scope was straightened and withdrawn back to the esophagus. Biopsies were obtained at the EG junction at 38 cm. The scope was withdrawn through the remainder of the esophagus, which appeared normal. The scope was withdrawn from the patient. He was turned around for the colonoscopy. The digital rectal exam revealed no abnormalities. The Olympus video pediatric colonoscope was entered into the rectum and advanced easily to the cecum. Once in the cecum, I did identify normal-appearing cecal pouch with appendiceal orifice and a normal-appearing ileocecal valve. The terminal ileum was cannulated and appeared normal. Scope withdrawn back in the colon. The entire cecum and ileocecal valve appeared normal. The scope was slowly withdrawn assessing all mucosal surfaces carefully. Preparation was excellent. I did not visualize any sign of polyps, colitis, nor angiodysplasia. There was a mild amount of sigmoid diverticulosis. In the rectum, scope was retroflexed visualizing small internal hemorrhoids, but no other pathology. The rectal mucosa appeared normal. The scope was straightened and withdrawn from the patient. He tolerated the procedures well and was returned to recovery area in stable condition. IMPRESSION: 1. Small hiatal hernia, gastroesophageal reflux. 2. Minimal gastritis. 3. Mild diverticulosis. 4. Small internal hemorrhoids. PLAN: The results of the biopsies will be checked. I would recommend a repeat colonoscopy in 10 years for further screening. He was advised to continue omeprazole as needed or daily for reflux. He will otherwise see me on a p.r.n. basis. MD BRIA Leung/OLGA / [id number] MTDD
== END 2022-11-22 09:00 | disposition home or self-care (01) ==
PROVIDERS: PCP Internal Medicine; Visit Provider Internal Medicine
PROC: (CPT 45378; principal; 2022-11-22 07:30)
DX: R19.5 Other fecal abnormalities (principal); K57.30 Diverticulosis of large intestine without perforation or abscess without bleeding; K64.8 Other hemorrhoids; K21.9 Gastro-esophageal reflux disease without esophagitis; K29.60 Other gastritis without bleeding; K44.9 Diaphragmatic hernia without obstruction or gangrene; Z79.899 Other long term (current) drug therapy
CPT/HCPCS: 45378; 43239; 88305; 88342; J3010

== ENCOUNTER 2023-04-04 09:33 | Emergency (ER) | payer BC, SELFPAY ==
--- NOTE | 2023-04-04 09:37 | ECG_ITS ---
Test Reason : chest pain Blood Pressure : / mmHG Vent. Rate : 059 BPM Atrial Rate : 059 BPM P-R Int : 158 ms QRS Dur : 128 ms QT Int : 444 ms P-R-T Axes : 000 016 -26 degrees QTc Int : 439 ms Sinus bradycardia Right bundle branch block T wave abnormality, consider inferolateral ischemia Abnormal ECG When compared with ECG of 14-JUL-2022 12:05, Sinus rhythm has replaced Ectopic atrial rhythm Referred By: Generic ED Physician Electronically Signed By:Leobardo Avila
[2023-04-04 09:58] VITALS: BP 161/75; PULSE 58; RESP 20; TEMP 36.3; O2SAT 98; BMI 26.3
[2023-04-04 10:01] LABS: MANUAL DIFF FLAG NO
[2023-04-04 10:11] LABS: Basophils Absolute Auto 0.1 X10*3/uL (0.0-0.2); Basophils Percent Auto 1.1 % (0-2); Eosinophils Absolute Auto 0.1 X10*3/uL (0.0-0.4); Eosinophils Percent Auto 2.1 % (0-4); Hematocrit 43.6 % (42.0-52.0); Hemoglobin 14.8 g/dl (14.0-18.0); Imm Gran Abs Auto 0.02 X10*3/uL (0.00-0.03); Imm Gran Pct Auto 0.4 % (0.0-0.4); Lymphocytes Absolute Auto 1.9 X10*3/uL (1.2-4.9); Lymphocytes Percent Auto 35.5 % (20-40); Mean Corpuscular HGB Conc 33.9 g/dl (31.0-36.0); Mean Corpuscular Hemoglobin 31.2 pg (27.0-33.0); Mean Platelet Volume 9.5 fL (9.4-12.4); Monocytes Absolute Auto 0.5 X10*3/uL (0.1-1.2); Monocytes Percent Auto 8.6 % (2-11); Neutrophils Absolute Auto 2.8 x10*3/uL (2.0-8.3); Neutrophils Percent Auto 52.3 % (45-73); Platelet Count 257 X10*3/uL (160-400); Red Blood Count 4.74 X10*6/uL (4.60-5.80); Red Cell Distribution Width 11.6 % (11.0-16.0); White Blood Count 5.3 X10*3/uL (4.8-10.8)
[2023-04-04 10:17] LABS: Alanine Aminotransferase 16 U/L (0-40); Albumin Level 4.1 g/dL (3.5-5.0); Alkaline Phosphatase 82 U/L (39-117); Anion Gap 12 (12-20); Aspartate Amino Transferase 17 U/L (5-37); Bilirubin Total 0.9 mg/dL (0.0-1.0); Blood Urea Nitrogen 13 mg/dL (9-16); Calcium 9.4 mg/dL (8.4-10.2); Carbon Dioxide 26 mmol/L (22-29); Chloride 105 mmol/L (96-108); Creatinine Clr Calc Pharmacy 95.2; Estimated Glomerular Filt Rate > 60; Glucose Random 105 mg/dL (60-115); Magnesium 2.4 mg/dL (1.6-2.6); Potassium 4.1 mmol/L (3.3-5.1); Sodium 139 mmol/L (135-145); Total Protein 7.2 g/dL (6.5-8.0)
[2023-04-04 10:26] LABS: Troponin-I High Sensitivity < 2.7 ng/L (<3.5-35.0)
[2023-04-04 10:50] VITALS: BP 180/87; PULSE 57; RESP 12; TEMP 36.8; O2SAT 99
--- NOTE | 2023-04-04 10:54 | PC.NURSE ---
alert and oriented, respirations even and unlabored. coming in for epigastric pain radiating to right armpit, states the pain is similar to that in the past. reports he takes omeprazole for this issue. ambulated with steady gait to the bathroom, able to obtain urine sample. resting quietly in room with no obvious signs/symptoms of distress. call richardson within reach.
[2023-04-04 11:00] LABS: Appearance Urine Clear; Color Urine Yellow; Glucose Urine UA Negative (Negative); Leukocyte Esterase Urine Negative (Negative); Nitrite Urine Negative (Negative); PH 6.5 (5.0-9.0); Urine Blood Negative (Negative); Urine Ketones Negative (Negative); Urine Protein Negative (Neg-Trace)
[2023-04-04 11:02] LABS: Bacteria Urine None Seen (None Seen); Hyaline Casts Urine 0-2 /LPF (0-2); RBC Urine 0-2 /HPF (0-2); Squamous Epithelial Cell Urine 0-2 /HPF (0-2); WBC Urine 0-5 /HPF (0-5)
[2023-04-04 12:12] VITALS: BP 158/85; PULSE 61; RESP 16; O2SAT 99
[2023-04-04] MEDS: Lidocaine HCl Viscous 2 % 15 ML SOLUTION 10 ML MUCOUS MEM (13:17)
[2023-04-04] MEDS: Sucralfate Oral Suspension 1 GM/10 ML ORAL.SUSP PO (13:18)
[2023-04-04] MEDS: Magnesium Hydrox/Alum Hydrox 30 ML ORAL.SUSP PO (13:19)
--- NOTE | 2023-04-04 13:22 | ED_ITS ---
HPI - Chest Pain General Chief Complaint: Chest Pain Stated Complaint: chest pain Time Seen by Provider: 04/04/23 11:43 Source: patient Mode of arrival: ambulatory History of Present Illness HPI narrative: 62-year-old male who reports occasional alcohol use and recent viral illness that he states was getting better but then he noticed over the past couple of days he has chest discomfort that does not worsen with deep inspiration but he states that when he bends over it becomes worse. He has known gastritis/GERD and is currently prescribed 20 mg of omeprazole daily. He otherwise denies any dizziness/headache/shortness of breath or nausea. Related Data Home Medications Medication Instructions Recorded Confirmed omeprazole 10 mg capsule,delayed 10 mg PO DAILY PRN Gastric Reflux 04/20/20 11/22/22 release Allergies Allergy/AdvReac Type Severity Reaction Status Date / Time No Known Allergies Allergy Verified 09/14/22 16:41 [No Known Allergies*] Review of Systems 2 Review of Systems: Pertinent positives and negatives as stated in HPI [facility] Past Medical History Source: nursing notes reviewed Medical History GERD (gastroesophageal reflux disease) Surgical History History of left inguinal hernia repair (12/14/19) Social History Social History Alcohol intake: current Alcohol intake frequency: holidays/special occasions only Patient Tobacco Use Status: Never used Tobacco Advance Directives: No Advance Directives Information Provided: No Physical Exam 2 Vital Signs: Vital Signs: Last Vital Signs Temp 98.3 F 04/04/23 10:50 Pulse 61 04/04/23 12:12 Resp 16 04/04/23 12:12 BP 158/85 H 04/04/23 12:12 Pulse Ox 99 04/04/23 12:12 O2 Del Method Room Air 04/04/23 12:12 BMI result Body Mass Index 26.3 VITAL SIGNS: Reviewed. GENERAL: Well developed, well nourished, in no acute distress. HEAD: Normocephalic/atraumatic EYES: PERRLA, EOMI EARS: Ext canals without abnormality, TMs non-bulging and non-erythematous NOSE: Nares patent bilateral OROPHARYNX: no oral lesions noted, posterior pharynx clear and non-erythematous without noted tonsillar enlargement/erythema/exudates NECK: Supple, no adenopathy LUNGS: Normal breath sounds. No adventitious sounds or accessory muscle use. SpO2<99> CARDIOVASCULAR: Regular rate and rhythm without noted murmurs ABDOMEN: Soft, non-tender, non-distended with bowel sounds. MUSCULOSKELETAL: No tenderness, deformities, or effusions noted on gross inspection. EXTREMITIES: No cyanosis, clubbing or edema. SKIN: Inspection of the skin reveals no rashes NEUROLOGIC: Alert and oriented x 4. Strength and sensation to light touch were grossly intact x 4. Medications Administered Discontinued Medications Generic Name Dose Route Start Last Admin Trade Name Freq PRN Reason Stop Dose Admin Al Hydroxide/Mg Hydroxide 30 ml 04/04/23 12:50 04/04/23 13:19 Magnesium Hydrox/Alum Hydrox 30 Ml Oral.Susp PO 04/04/23 12:51 30 ml ONCE ONE Administration Lidocaine HCl 10 ml 04/04/23 12:50 04/04/23 13:17 Lidocaine Hcl Viscous 2 % 15 Ml Solution MUCOUS MEM 04/04/23 12:51 10 ml ONCE ONE Administration Sucralfate 1 gm 04/04/23 12:50 04/04/23 13:18 Sucralfate Oral Suspension 1 Gm/10 Ml Oral.Susp PO 04/04/23 12:51 1 gm ONCE ONE Administration Medical Decision Making Medical Decision Making MDM Narrative: 62-year-old male with history and clinical presentation most suggestive of likely GERD/gastritis, low clinical suspicion for ACS and patient is afebrile, oxygenating well on room air and no tachypnea or tachycardia and so I do not think any suggestion of secondary bacterial pneumonia. Reviewed all investigations and hematologic indices are grossly within normal limits, there are no noted derangements. Chemistry indices are grossly within normal limits, there is no demonstrated DONALD or electrolyte/liver enzymes derangements and high sensitivity troponin is undetectable. Urinalysis is negative for UTI or hematuria. 1315: Patient received GI cocktail as well as Carafate. He declines any additional prescription for Carafate/sucralfate. He did have a discussion this morning with his physician who recommended [id number] omeprazole in addition to his prescribed omeprazole. Patient is otherwise hemodynamically stable for discharge to home. Differential Diagnosis Differential Diagnoses: The differential diagnosis associated with the presentation includes Please see the discussion above Admission/Observation Consideration of admission/observation: Escalation of care including admission/observation considered Please see the discussion above Lab Data MDM Lab Attestation statement: I reviewed the patient's lab results. Please see the discussion above 04/04/23 09:57 04/04/23 09:57 Labs: Lab Results 04/04/23 04/04/23 Range/Units 09:57 10:50 WBC 5.3 (4.8-10.8) X10*3/uL RBC 4.74 (4.60-5.80) X10*6/uL Hgb 14.8 (14.0-18.0) g/dl Hct 43.6 (42.0-52.0) % MCV 92.0 (80.0-98.0) fL MCH 31.2 (27.0-33.0) pg MCHC 33.9 (31.0-36.0) g/dl RDW 11.6 (11.0-16.0) % Plt Count 257 (160-400) X10*3/uL MPV 9.5 (9.4-12.4) fL Immature Gran % (Auto) 0.4 (0.0-0.4) % Neut % (Auto) 52.3 (45-73) % Lymph % (Auto) 35.5 (20-40) % Hutchinson % (Auto) 8.6 (2-11) % Eos % (Auto) 2.1 (0-4) % Baso % (Auto) 1.1 (0-2) % Lymph # (Auto) 1.9 (1.2-4.9) X10*3/uL Hutchinson # (Auto) 0.5 (0.1-1.2) X10*3/uL Eos # (Auto) 0.1 (0.0-0.4) X10*3/uL Baso # (Auto) 0.1 (0.0-0.2) X10*3/uL Abs Immat Gran (auto) 0.02 (0.00-0.03) X10*3/uL Absolute Neuts (auto) 2.8 (2.0-8.3) x10*3/uL Absolute Nucleated RBC 0.000 (0.0-0.012) X10*3/uL Nucleated RBC % (auto) 0.0 (0.0-0.2) /100WBC Sodium 139 (135-145) mmol/L Potassium 4.1 (3.3-5.1) mmol/L Chloride 105 (96-108) mmol/L Carbon Dioxide 26 (22-29) mmol/L Anion Gap 12 (12-20) BUN 13 (9-16) mg/dL Creatinine 0.82 (0.5-1.4) mg/dL Estim Creat Clear Calc 95.2 Estimated GFR > 60 Random Glucose 105 (60-115) mg/dL Calcium 9.4 (8.4-10.2) mg/dL Magnesium 2.4 (1.6-2.6) mg/dL Total Bilirubin 0.9 (0.0-1.0) mg/dL AST 17 (5-37) U/L ALT 16 (0-40) U/L Alkaline Phosphatase 82 (39-117) U/L Troponin I High Sens < 2.7 (<3.5-35.0) ng/L Total Protein 7.2 (6.5-8.0) g/dL Albumin 4.1 (3.5-5.0) g/dL Urine Color Yellow Urine Appearance Clear Urine pH 6.5 (5.0-9.0) Ur Specific Cashiers 1.010 (1.005-1.025) Urine Protein Negative (Neg-Trace) mg/dL Urine Glucose (UA) Negative (Negative) mg/dL Urine Ketones Negative (Negative) mg/dL Urine Blood Negative (Negative) Urine Nitrite Negative (Negative) Ur Leukocyte Esterase Negative (Negative) Urine RBC 0-2 (0-2) /HPF Urine WBC 0-5 (0-5) /HPF Ur Squamous Epith Cells 0-2 (0-2) /HPF Urine Bacteria None Seen (None Seen) Hyaline Casts 0-2 (0-2) /LPF Independent Interpretation I performed an independent interpretation of an: EKG Interpretation: Sinus bradycardia, HR -59, RBBB at baseline, no STEMI, T-wave abnormality that is chronically stable on comparison with 07/14/2022. DC/QTC are within normal limits. External Record Review External record reviewed: Outpatient record and Prior outpatient labs Critical Care Time Critical Care Time Critical Care Time: Yes Total Critical Care Time: 30 Attestation: I personally attest to this time spent taking care of the patient. Discharge Plan Discharge Clinical Impression: Atypical chest pain, Gastroesophageal reflux disease Patient Disposition: Home, Self-Care Instructions: Diet for Stomach Ulcers and Gastritis (ED), Gastroesophageal Reflux Disease (ED) Additional Instructions: 1. Resume all home medications as prescribed. 2. Recommend [id number] Maalox/Mylanta, use as directed prior to meals. This will give you additional symptom relief. 3. I do recommend that you follow-up with your primary care doctor in the next 1-2 days for re-evaluation. Return to the ER for any worsening or change in your symptoms. Prescriptions: No Action omeprazole 10 mg capsule,delayed release(DR/EC) 10 mg PO DAILY PRN (Reason: Gastric Reflux) Referrals: Chencho Vyas MD [Primary Care Provider] -
[2023-04-04 13:48] VITALS: BP 166/89; PULSE 63; RESP 16; O2SAT 97
== END 2023-04-04 13:48 | disposition home or self-care (01) ==
PROVIDERS: Physician Assistant; Emergency Provider Student in an Organized Health Care Education/Training Program; PCP Internal Medicine
DX: R07.89 Other chest pain (principal); K21.9 Gastro-esophageal reflux disease without esophagitis; R00.1 Bradycardia, unspecified; Z79.899 Other long term (current) drug therapy
CPT/HCPCS: 36415; 80053; 81001; 83735; 84484; 85025; 93005; 99283; 99285

== ENCOUNTER → 2023-04-04 09:37 | Outpatient (BNV) | payer BC, SELFPAY | PROVIDERS: Emergency Provider Student in an Organized Health Care Education/Training Program; PCP Internal Medicine; Visit Provider Internal Medicine Cardiovascular Disease | DX: R00.1 Bradycardia, unspecified (principal) | CPT/HCPCS: 93010 ==

== ENCOUNTER 2023-04-07 12:37 | Emergency (ER) | payer BC, SELFPAY ==
--- NOTE | ~2023-04-07 | XR_ITS ---
EXAMINATION: XR CHEST CLINICAL INFORMATION: Right breast area foreign body question COMPARISON: None available. TECHNIQUE: Frontal view of the chest was obtained. FINDINGS: No significant abnormality is noted involving the heart, lungs, mediastinum, bony thorax or soft tissues. XR/XR chest 1V IMPRESSION: Unremarkable chest examination.
[2023-04-07 12:49] VITALS: BP 146/70; PULSE 52; RESP 18; TEMP 36; O2SAT 97; BMI 26.3
--- NOTE | 2023-04-07 16:13 | ED_ITS ---
HPI - Skin/Abscess/Foreign Bdy General Chief complaint: Skin/Abscess/Foreign Body Stated complaint: piece of wood stuck in chest Time Seen by Provider: 04/07/23 16:12 Source: patient Mode of arrival: ambulatory Limitations: no limitations History of Present Illness HPI narrative: 62 year old male with no significant pmhx who presents to the ED today for evaluation of wood splinter stuck in his chest after sawing wood with a table saw yesterday. States that he was cutting pressurized wood when a piece of the wood came up and hit him in the chest just under the right areola. States that he removed as much of the splinters as he possibly could. He washed the area with water and alcohol. Woke up this morning feeling as though there were still wood in the wound. Tetanus not up-to-date. Denies fever, chills, nausea or vomiting, chest pain, shortness of breath. Related Data Home Medications Medication Instructions Recorded Confirmed omeprazole 10 mg capsule,delayed 10 mg PO DAILY PRN Gastric Reflux 04/20/20 11/22/22 release Previous Rx's Medication Instructions Recorded cephalexin 500 mg capsule 500 mg PO BID 7 days #14 caps 04/07/23 Allergies Allergy/AdvReac Type Severity Reaction Status Date / Time No Known Allergies Allergy Verified 04/07/23 12:48 [No Known Allergies*] Review of Systems Review of Systems: Constitutional: No fever, chills, fatigue, night sweats, weight changes ENT/Mouth: No ear pain, hearing loss, nasal congestion, sinus pain, rhinorrhea, sore throat Eyes: No eye pain, swelling, redness, vision changes, discharge Cardio: No chest pain, palpitations, [place], orthopnea, peripheral edema Pulm: No SOB, cough, sputum, wheezing, dyspnea, hemoptysis GI: No nausea, vomiting, hematemesis, abdominal pain, diarrhea, constipation, hematochezia, melena : No irregular bleeding, dysuria, frequency, urgency, hesitancy, hematuria, flank pain, urinary flow changes, urinary incontinence or retention MSK: No back pain, neck pain, joint pain, myalgias Skin: No lesions, rashes, +lac and fb to chest wall Neuro: No weakness, numbness, paresthesias, LOC, dizziness, headache All other systems reviewed and are negative. [facility] Past Medical History Attestation statement: The following information was validated with the patient. Source: old records reviewed and nursing notes reviewed Medical History GERD (gastroesophageal reflux disease) Surgical History History of left inguinal hernia repair (12/14/19) Social History Social History Alcohol intake: current Alcohol intake frequency: holidays/special occasions only Patient Tobacco Use Status: Never used Tobacco Advance Directives: No Advance Directives Information Provided: No Physical Exam Vital Signs: Vital Signs: Last Vital Signs Temp 96.8 F 04/07/23 12:49 Pulse 63 04/07/23 17:30 Resp 18 04/07/23 17:30 BP 146/70 H 04/07/23 12:49 Pulse Ox 96 04/07/23 17:30 O2 Del Method Room Air 04/07/23 17:30 BMI result Body Mass Index 26.3 Vital signs stable, afebrile Const: General: cooperative, healthy appearing, comfortable, no acute distress, alert and awake Orientation/consciousness: patient oriented x3 Limitations: no limitations HEENT: Head: Yes normal to inspection Ears: hearing grossly normal bilaterally Eyes: General: appearance normal, both eyes and all related structures Conjunctivae: conjunctivae normal Sclerae: sclerae normal Pupils: Equal, round and reactive pupils present EOM: EOMs intact bilaterally Neck: Neck: Yes normal visual inspection and Yes full ROM Chest: Other: + refer to photo below + there are two abrasions noted to the a nterior chest wall just inferior to the right areola, one measuring approximately 1 cm and the other measuring approximately 1.5 cm. No active bleeding or discharge. Mildly tender to palpation. No palpable warmth or fluctuance. I do appreciate a superficial splinter on palpation of the more superior abrasion, on palpation it feels approximately 1 cm long. Resp: Effort & Inspection: normal respiratory effort, able to speak in comple te sentences and symmetric chest movement Auscultation: clear to auscultation bilaterally and breath sounds present Cardio: Jugular venous distension: no JVD Rate: regular rate Rhythm: regular rhythm Peripheral pulses: radial pulses present GI: Inspection: Yes normal to inspection Palpation (GI): Soft to palpation and nontender Skin: Other: + refer to photo above Neuro: General: patient oriented x3, gait normal and moves all extremities Cranial nerves: Yes Equal, round and reactive pupils present Extrem: General: Yes normal to inspection and Yes full ROM Course Course Course Narrative: 0-- chest x-ray negative. I do not suspect that we would be able to visualize any piece of wood on x-ray. I injected 1% lidocaine into the wound in an attempt to remove the splinter. I explored wound and removed a 1 cm wood splinter. The area was is explored and irrigated extensively. No other retained wood visualized or palpated. There is approximately a 1 cm laceration noted just underneath the right areola after FB removal. This was not repaired with sutures and left open to prevent infection. Myla BRADY at bedside to assist with procedure. > patient received updated Tdap vaccination today. > will send Keflex to patient's pharmacy for him to take over the next 7 days to prevent infection. > discussed worrisome signs and symptoms of when to return to the emergency department. Patient has remained stable throughout ED visit today. Discussed strict return precautions. All questions answered at this time. Patient is agreeable with disposition and stable for discharge. Medications Administered Discontinued Medications Generic Name Dose Route Start Last Admin Trade Name Freq PRN Reason Stop Dose Admin Diphtheria/Tetanus/Acell Pertussis 0.5 ml 04/07/23 16:20 04/07/23 16:29 Diphth,Pertus(Acell),Tet Adult 0.5 Ml Syringe IM 04/07/23 16:21 0.5 ml .ONCE ONE Administration Lidocaine HCl 10 ml 04/07/23 16:20 04/07/23 16:32 Lidocaine Hcl 1 % Mpf 5 Ml Vial SUBCUT 04/07/23 16:21 10 ml ONCE ONE Administration Medical Decision Making Medical Decision Making MDM Narrative: 62 year old male with no significant pmhx who presents to the ED today for evaluation of wood splinter stuck in his chest after sawing wood with a table saw yesterday. Vital signs stable, afebrile. On exam, there are two abrasions noted to the anterior chest wall just inferior to the right areola, one measuring approximately 1 cm and the other measuring approximately 1.5 cm. No active bleeding or discharge. Mildly tender to palpation. No palpable warmth or fluctuance. I do appreciate a superficial splinter on palpation of the more superior abrasion, on palpation it feels approximately 1 cm long. Clinical concern for retained foreign body, skin foreign body. Unlikely cellulitis, pneumothorax, chest wall infection. Plan for chest x-ray and foreign body removal. Differential Diagnosis Differential Diagnoses: The differential diagnosis associated with the presentation includes as above Admission/Observation not indicated Independent Interpretation I performed an independent interpretation of an: Plain X-Ray Interpretation: Chest x-ray without identifiable foreign body, no pneumothorax, agree with radiologist's interpretation. Radiology Impression Discussion of test interpretation with radiology: I have reviewed the radiologist's reading. Radiologist Impression: XR chest 1V IMPRESSION: Unremarkable chest examination. External Record Review External record reviewed: Inpatient record Prescription Management I considered prescription management with: Pain Medication and Antibiotic Procedures Foreign Body Removal Time Out Performed: yes Site: other (anterior chest) Description of foreign body: other (wood splinter) Sedation/Analgesia: other (Local Lidocaine 1%) Technique: manual removal, removal with forceps and incision made to facilitate removal Confirmed by:: direct visualization Complications: none Post-procedure exam: awake, alert, normal BP, normal HR and normal O2 sat Neurovascular: normal distal pulse, normal capillary fill, distal light touch sensation intact, distal motor function normal, no signs of compartment syndrome and no change from pre-procedure Critical Care Time Critical Care Time Critical Care Time: No Discharge Plan Discharge Clinical Impression: Foreign body in skin Patient Disposition: Home, Self-Care Additional Instructions: A wood shard was removed from the skin on your chest today. Keflex is an antibiotic that has been sent to your pharmacy. Please take this as directed over the next 7 days. Take this to completion and do not miss any doses. Your wound was covered with Steri-Strips today. These will fall off on their own. Do not pick at them. Once these fall off you can apply bacitracin or Neosporin to the area. Return to the emergency department if you develop signs of infection such as fever, redness around the wound, bleeding or oozing from the wound. In the case of an emergency call 911. Prescriptions: New cephalexin 500 mg capsule 500 mg PO BID 7 Days Qty: 14 0RF No Action omeprazole 10 mg capsule,delayed release(DR/EC) 10 mg PO DAILY PRN (Reason: Gastric Reflux) Referrals: Chencho Vyas MD [Primary Care Provider] - Interventions: ED Discharge Assessment Last Done: 04/07/23 17:30 Discharge Date/Time: 04/07/23 17:31
[2023-04-07] MEDS: Diphth,Pertus(ACell),Tet Adult 0.5 ML SYRINGE IM (16:29)
[2023-04-07] MEDS: Lidocaine HCl 1 % MPF 5 ML VIAL 10 ML SUBCUT (16:32)
--- NOTE | 2023-04-07 16:32 | PC.NURSE ---
tdap given left right deltoid, VIS provided, pt tolerated well.
[2023-04-07 17:30] VITALS: PULSE 63; RESP 18; O2SAT 96
== END 2023-04-07 17:31 | disposition home or self-care (01) ==
PROVIDERS: Emergency Provider Emergency Medicine; PCP Internal Medicine
DX: S20.351A Superficial foreign body of right front wall of thorax, initial encounter (principal); X58.XXXA Exposure to other specified factors, initial encounter; Y93.89 Activity, other specified; Y92.9 Unspecified place or not applicable; Y99.9 Unspecified external cause status; Z23 Encounter for immunization
CPT/HCPCS: 71045; 90471; 90715; 99283; 99284

== ENCOUNTER 2023-04-09 22:41 | Emergency (ER) | payer BC, SELFPAY ==
[2023-04-09 23:19] VITALS: BP 174/86; PULSE 60; RESP 18; TEMP 36.8; O2SAT 100; BMI 26.3
[2023-04-10 00:16] LABS: MANUAL DIFF FLAG NO
[2023-04-10 00:19] LABS: Basophils Absolute Auto 0.1 X10*3/uL (0.0-0.2); Basophils Percent Auto 0.7 % (0-2); Eosinophils Absolute Auto 0.2 X10*3/uL (0.0-0.4); Eosinophils Percent Auto 2.4 % (0-4); Imm Gran Abs Auto 0.02 X10*3/uL (0.00-0.03); Imm Gran Pct Auto 0.3 % (0.0-0.4); Lymphocytes Absolute Auto 1.9 X10*3/uL (1.2-4.9); Lymphocytes Percent Auto 28.4 % (20-40); Mean Corpuscular HGB Conc 34.1 g/dl (31.0-36.0); Mean Corpuscular Hemoglobin 31.5 pg (27.0-33.0); Mean Corpuscular Volume 92.3 fL (80.0-98.0); Mean Platelet Volume 9.4 fL (9.4-12.4); Monocytes Absolute Auto 0.5 X10*3/uL (0.1-1.2); Neutrophils Absolute Auto 4.1 x10*3/uL (2.0-8.3); Neutrophils Percent Auto 60.2 % (45-73); Platelet Count 235 X10*3/uL (160-400); Red Blood Count 4.44 X10*6/uL (4.60-5.80); Red Cell Distribution Width 11.9 % (11.0-16.0); White Blood Count 6.8 X10*3/uL (4.8-10.8)
[2023-04-10 00:33] LABS: Alanine Aminotransferase 17 U/L (0-40); Albumin Level 4.3 g/dL (3.5-5.0); Alkaline Phosphatase 85 U/L (39-117); Anion Gap 10 (12-20); Aspartate Amino Transferase 20 U/L (5-37); Bilirubin Total 0.7 mg/dL (0.0-1.0); Blood Urea Nitrogen 11 mg/dL (9-16); Calcium 9.5 mg/dL (8.4-10.2); Carbon Dioxide 27 mmol/L (22-29); Chloride 108 mmol/L (96-108); Creatinine Clr Calc Pharmacy 89.7; Estimated Glomerular Filt Rate > 60; Glucose Random 116 mg/dL (60-115); Potassium 4.3 mmol/L (3.3-5.1); Sodium 141 mmol/L (135-145); Total Protein 7.3 g/dL (6.5-8.0)
--- NOTE | 2023-04-10 01:38 | ED.WOUNDLAC ---
HPI - Wound/Laceration General Chief Complaint: Wound/Laceration Stated Complaint: recheck chest wound Time Seen by Provider: 04/10/23 01:30 Source: patient Mode of arrival: ambulatory Limitations: no limitations History of Present Illness HPI narrative: Patient is a 62-year-old male presents emergency department for a wound check. He states he was seen here 2 days ago for a laceration to the right anterior chest after using the table cell with some wooden fragments impaled into his chest wall. He states at that time a small wooden fragment was removed. Expresses concern now that there may still be a retained foreign body of would present. Upon palpating along the border of his healing wound he felt an area that was firm and this is concerning to him for retained fragment. He has been taking his cephalexin as prescribed. He denies fevers, chills, increasing pain/redness/swelling. Overall he states that the wound appears to be healing. Related Data Home Medications Medication Instructions Recorded Confirmed omeprazole 10 mg capsule,delayed 10 mg PO DAILY PRN Gastric Reflux 04/20/20 11/22/22 release Previous Rx's Medication Instructions Recorded cephalexin 500 mg capsule 500 mg PO BID 7 days #14 caps 04/07/23 Allergies Allergy/AdvReac Type Severity Reaction Status Date / Time No Known Allergies Allergy Verified 04/07/23 12:48 [No Known Allergies*] Review of Systems Review of Systems: Yes all other systems are reviewed and are negative PMFSH Past Medical History Attestation statement: The following information was validated with the patient. Source: old records reviewed Medical History GERD (gastroesophageal reflux disease) Surgical History History of left inguinal hernia repair (12/14/19) Social History Social History Alcohol intake: current Alcohol intake frequency: holidays/special occasions only Patient Tobacco Use Status: Never used Tobacco Advance Directives: No Advance Directives Information Provided: No Physical Exam Vital Signs: Vital Signs: Last Vital Signs Temp 98.2 F 04/09/23 23:19 Pulse 60 04/09/23 23:19 Resp 18 04/09/23 23:19 BP 174/86 H 04/09/23 23:19 Pulse Ox 100 04/09/23 23:19 O2 Del Method Room Air 04/09/23 23:19 BMI result Body Mass Index 26.3 Appearance: Alert.?Oriented to person, place and time. No acute distress.?Normal affect.? Neck: Normal inspection.? Neck supple.?? CVS: Heart sounds normal. Normal heart rate and rhythm.? Pulses normal.?? Respiratory: No respiratory distress.? Lung sounds clear to auscultation bilaterally?? Skin: Skin warm and dry.? Normal skin color.? ??Healing lacerations to the right anterior chest wall approximately 1 cm and 1.5 cm without active drainage, central scabbing. There is no fluctuance, warmth. Area is mildly tender. Mild surrounding erythema Neuro: Moves all extremities spontaneously. Sensation intact bilaterally. Ambulates with normal steady gait. Medical Decision Making Medical Decision Making [facility] Narrative: Patient is a 62-year-old male who presents emergency department for evaluation of healing lacerations to the anterior chest wall with expressed concern for retained foreign body as per HPI. At the time my examination I do not appreciate an obvious retained foreign body. When he was seen in the emergency department 04/07/2023, the wound was irrigated extensively and had a 1 cm wooden foreign body removed. There is no sign of abscess at this time. There is mild erythema concerning for localized cellulitis for which he is being treated with cephalexin. I discussed with patient at this time would not be recommended to reopen the wound for additional exploration. I did advise patient that he may follow-up with general surgery for further evaluation. At this time he is stable for discharge home. Help with his primary care provider as well. Reviewed worrisome signs and symptoms that would warrant re-evaluation in the emergency department. All questions answered. Differential Diagnosis Differential Diagnoses: The differential diagnosis associated with the presentation includes (As noted above) Lab Data [facility] Lab Attestation statement: I reviewed the patient's lab results. CBC is without leukocytosis. CMP unremarkable. 04/10/23 00:12 04/10/23 00:12 Labs: Lab Results 04/10/23 Range/Units 00:12 WBC 6.8 (4.8-10.8) X10*3/uL RBC 4.44 L (4.60-5.80) X10*6/uL Hgb 14.0 (14.0-18.0) g/dl Hct 41.0 L (42.0-52.0) % MCV 92.3 (80.0-98.0) fL MCH 31.5 (27.0-33.0) pg MCHC 34.1 (31.0-36.0) g/dl RDW 11.9 (11.0-16.0) % Plt Count 235 (160-400) X10*3/uL MPV 9.4 (9.4-12.4) fL Immature Gran % (Auto) 0.3 (0.0-0.4) % Neut % (Auto) 60.2 (45-73) % Lymph % (Auto) 28.4 (20-40) % [place] % (Auto) 8.0 (2-11) % Eos % (Auto) 2.4 (0-4) % Baso % (Auto) 0.7 (0-2) % Lymph # (Auto) 1.9 (1.2-4.9) X10*3/uL [place] # (Auto) 0.5 (0.1-1.2) X10*3/uL Eos # (Auto) 0.2 (0.0-0.4) X10*3/uL Baso # (Auto) 0.1 (0.0-0.2) X10*3/uL Abs Immat Gran (auto) 0.02 (0.00-0.03) X10*3/uL Absolute Neuts (auto) 4.1 (2.0-8.3) x10*3/uL Absolute Nucleated RBC 0.000 (0.0-0.012) X10*3/uL Nucleated RBC % (auto) 0.0 (0.0-0.2) /100WBC Sodium 141 (135-145) mmol/L Potassium 4.3 (3.3-5.1) mmol/L Chloride 108 (96-108) mmol/L Carbon Dioxide 27 (22-29) mmol/L Anion Gap 10 L (12-20) BUN 11 (9-16) mg/dL Creatinine 0.87 (0.5-1.4) mg/dL Estim Creat Clear Calc 89.7 Estimated GFR > 60 Random Glucose 116 H (60-115) mg/dL Calcium 9.5 (8.4-10.2) mg/dL Total Bilirubin 0.7 (0.0-1.0) mg/dL AST 20 (5-37) U/L ALT 17 (0-40) U/L Alkaline Phosphatase 85 (39-117) U/L Total Protein 7.3 (6.5-8.0) g/dL Albumin 4.3 (3.5-5.0) g/dL Prescription Management I considered prescription management with: Antibiotic Discharge Plan Discharge Clinical Impression: Laceration Patient Disposition: Home, Self-Care Additional Instructions: As discussed, at this time I do not appreciate an area concerning for a retained piece of wood. The area of concern does feel consistent with the natural healing process/ wound edge. On 04/07/2023 your wound was extensively irrigated and the wood fragment that was present was able to be removed at that time. you are welcome to contact the general surgeon office to schedule follow-up visit with them regarding concerns for potential retained foreign body of wood, for further explration internally if they felt warranted. Continue to complete the entire course of antibiotics as prescribed. If you develop any new or worsening symptoms or concerns you may return back to emergency department. Prescriptions: No Action cephalexin 500 mg capsule 500 mg PO BID 7 Days Qty: 14 0RF omeprazole 10 mg capsule,delayed release(DR/EC) 10 mg PO DAILY PRN (Reason: Gastric Reflux) Referrals: Chencho Vyas MD [Primary Care Provider] - Zaheer Ford MD [Physician] -
== END 2023-04-10 01:56 | disposition home or self-care (01) ==
PROVIDERS: Emergency Provider Internal Medicine; PCP Internal Medicine
DX: S21.129A Laceration with foreign body of unspecified front wall of thorax without penetration into thoracic cavity, initial encounter (principal); W45.8XXA Other foreign body or object entering through skin, initial encounter; Y93.9 Activity, unspecified; Y92.9 Unspecified place or not applicable; Y99.9 Unspecified external cause status; Z79.899 Other long term (current) drug therapy
CPT/HCPCS: 36415; 80053; 85025; 99282; 99283

== ENCOUNTER 2023-04-10 10:25 | Outpatient (AMB) | payer BC, SELFPAY ==
[2023-04-10 10:35] VITALS: BP 150/79; PULSE 62; BMI 23.2
--- NOTE | 2023-04-10 10:35 | MHC.OFFVIS ---
Intake Vital Signs 04/10/23 10:35 Height 5 ft 10 in Weight 162 lb BMI 23.2 BP 150/79 H Blood Pressure Location Rt brachial Position Sitting Pulse 62 Intake Visit Reasons: ? pressure treated wood still in chest Intake Note: Patient here for wood splinter stuck in chest. Was seen in ER on 04-07-23. They attempted to remove it but feels like it is still embedded in chest. Patient c/o pain, redness, painful to touch. [employer] Mk1 Operator Required: No Accompanied by: Self / Same As Patient Allergies No Known Allergies [No Known Allergies*] Allergy (Verified 04/10/23 10:36) HPI HPI Comments History of Present Illness Details Patient presents for evaluation of a anterior chest retained splinter from pressure wood from table sawing last Saturday. He was initially seen emergency department with wound was cared for and some would retrieved. He re-presented emerged department today because of a retained piece of wood. Patient presents for further evaluation. He has been on antibiotics per ER. Patient had chest x-ray which does not show the foreign body which is expected since most of the time wo0d is radiolucent. Chart was reviewed patient evaluated [facility] Medical History GERD (gastroesophageal reflux disease) Surgical History History of left inguinal hernia repair (12/14/19) Social History Alcohol intake: current Alcohol intake frequency: holidays/special occasions only Patient Tobacco Use Status: Never used Tobacco Physical Exam Vital Signs: Last Vital Signs Pulse 62 04/10/23 10:35 BP 150/79 H 04/10/23 10:35 BMI result Body Mass Index 23.2 Chest Other: Chest breath sounds bilaterally, HS 1 and 2. Right Nixon older area demonstrates the original injury site. Patient has what appears to be palpable retained large splinter. No evidence of infection. GI Other: Abdomen soft, benign Assessment & Plan Assessment & Plan (1) Foreign body (FB) in soft tissue: Code(s): M79.5 - Residual foreign body in soft tissue Plan Risks, benefits, alternatives of wound exploration and removal of foreign body/splinter from the anterior chest wall wound were reviewed the patient included but not limited to bleeding, infection, failure to find the foreign body, numbness, pain, scarring and the patient wishes to proceed. All questions were answered. We will tentatively schedule this for this Saturday. Patient is to continue his antibiotics Coding Level of Care Code New Pt Level 5 (56484) Diagnoses Foreign body (FB) in soft tissue M79.5
== END 2023-04-10 10:49 | disposition home or self-care (01) ==
PROVIDERS: PCP Internal Medicine; Visit Provider Surgery
DX: M79.5 Residual foreign body in soft tissue (principal)
CPT/HCPCS: 99204

== ENCOUNTER 2023-04-12 08:53 | Day surgery (SDC) | payer BC, SELFPAY ==
--- NOTE | 2023-04-11 19:40 | MHC.SHP ---
Pre-Procedural Eval Section A Date of Service: 04/11/23 The patient is an INPATIENT: No Changes since office visit: No Cold of Flu in the past 2 weeks, No New Medical Problems, No Changes in Medication and No Patient answered all questions The History & Physical has been completed within 30 days and I have reviewed it.: Yes Section B Chief Complaint: Residual foreign body in soft tissue Allergies: Allergies Allergy/AdvReac Type Severity Reaction Status Date / Time No Known Allergies Allergy Verified 04/10/23 10:36 [No Known Allergies*] Plan I have reviewed the history and physical and performed a pertinent physical examination on my patient. No changes have occurred unless specified. Time Spent With Patient Time: Total time managing care of this patient today ____ minutes.
[2023-04-12 09:13] VITALS: BP 143/68; PULSE 58; RESP 16; TEMP 36.8; O2SAT 97
[2023-04-12 09:41] VITALS: BMI 25.7
--- NOTE | 2023-04-12 10:06 | P.OP_ITS ---
Operative Note Operative Note Date of Service: 04/12/23 Narrative: Preoperative diagnosis: [] foreign body/ and large the sliver right anterior chest Postop diagnosis: [] same Procedure [] excision foreign body/sliver right anterior chest Surgeon: [] Luther Inspecting Machine Adjuster: [] Fernando Type of Anesthesia: [] local Indication for surgery: [] patient was sawing wood and was impaled with several splinters. He has a palpable retained sliver room. This was uneventfully retrieved. Patient wished to have specimen to Take home. Findings: [] patient brought to the operating room, placed on operative table in a supine position, after adequate level of local anesthesia was induced, the right chest was prepped and draped in usual sterile fashion. Using incision along the tract, this carried down through skin, subcutaneous tissue, where a sliver was identified and retrieved. Wound was irrigated, debrided, secured hemostasis, and loosely closed using a opted inverted dermal widely spaced 3-0 Vicryl sutures followed by Steri-Strips and sterile dressing. Patient tolerated procedure well. EBL minimal.
[2023-04-12 10:08] VITALS: BP 156/78; PULSE 56; RESP 16; TEMP 36.6; O2SAT 98
== END 2023-04-12 10:26 | disposition home or self-care (01) ==
PROVIDERS: PCP Internal Medicine; Visit Provider Surgery
PROC: (CPT 10120; principal; 2023-04-12 10:10)
DX: M79.5 Residual foreign body in soft tissue (principal); R07.89 Other chest pain; K21.9 Gastro-esophageal reflux disease without esophagitis; Z79.899 Other long term (current) drug therapy
CPT/HCPCS: 10120; J0665; J0690

== ENCOUNTER → 2023-04-12 08:53 | Outpatient (BNV) | payer BC, SELFPAY | PROVIDERS: PCP Internal Medicine; Visit Provider Surgery | DX: M79.5 Residual foreign body in soft tissue (principal) | CPT/HCPCS: 10120 ==

== ENCOUNTER 2023-04-23 09:02 | Outpatient (AMB) | payer BC, SELFPAY ==
--- NOTE | 2023-04-23 09:09 | MHC.OFFVIS ---
Intake Vital Signs 04/23/23 09:10 Height 5 ft 11 in Weight 182 lb BMI 25.4 BP 159/77 H Blood Pressure Location Rt brachial Position Sitting Pulse 59 Intake Visit Reasons: S/P removal foreign body Rt chest Intake Note: Patient here s/p removal foreign body removal on Rt chest. Patient c/o: got light headed yesterday. Reports incision healing well. Weaving Loom Operator Required: No Accompanied by: Self / Same As Patient Allergies No Known Allergies [No Known Allergies*] Allergy (Verified 04/23/23 09:11) HPI HPI Comments History of Present Illness Details Patient presents for follow-up. He has no wound issues or complaints. [facility] Medical History GERD (gastroesophageal reflux disease) Surgical History H/O endoscopy H/O colonoscopy History of left inguinal hernia repair (12/14/19) Social History Alcohol intake: current Alcohol intake frequency: holidays/special occasions only Patient Tobacco Use Status: Never used Tobacco Physical Exam Vital Signs: Last Vital Signs Pulse 59 04/23/23 09:10 BP 159/77 H 04/23/23 09:10 BMI result Body Mass Index 25.4 Chest Other: Right chest incision/wound clean dry and intact healing uneventfully. Assessment & Plan Assessment & Plan (1) Foreign body (FB) in soft tissue: Code(s): M79.5 - Residual foreign body in soft tissue Plan Patient has been given local instructions, and will follow-up p.r.n.. All questions answered. Coding Level of Care Code Global (79951) Diagnoses Foreign body (FB) in soft tissue M79.5
[2023-04-23 09:10] VITALS: BP 159/77; PULSE 59; BMI 25.4
== END 2023-04-23 09:15 | disposition home or self-care (01) ==
PROVIDERS: PCP Internal Medicine; Visit Provider Surgery
DX: M79.5 Residual foreign body in soft tissue (principal)
CPT/HCPCS: 99024

== ENCOUNTER → 2023-04-23 09:02 | Outpatient (BNVA) | payer BC, SELFPAY | PROVIDERS: PCP Internal Medicine; Visit Provider Surgery ==

== ENCOUNTER 2023-09-20 10:33 | Outpatient (REF) | payer BC, SELFPAY ==
[2023-09-20 10:39] LABS: MANUAL DIFF FLAG NO
[2023-09-20 11:25] LABS: Appearance Urine Clear; Basophils Absolute Auto 0.1 X10*3/uL (0.0-0.2); Basophils Percent Auto 0.9 % (0-2); Color Urine Yellow; Eosinophils Absolute Auto 0.2 X10*3/uL (0.0-0.4); Eosinophils Percent Auto 3.7 % (0-4); Glucose Urine UA Negative (Negative); Hematocrit 44.3 % (42.0-52.0); Hemoglobin 15.4 g/dl (14.0-18.0); Imm Gran Abs Auto 0.02 X10*3/uL (0.00-0.03); Imm Gran Pct Auto 0.3 % (0.0-0.4); Leukocyte Esterase Urine Negative (Negative); Lymphocytes Absolute Auto 2.6 X10*3/uL (1.2-4.9); Lymphocytes Percent Auto 44.7 % (20-40); Mean Corpuscular HGB Conc 34.8 g/dl (31.0-36.0); Mean Corpuscular Hemoglobin 32.7 pg (27.0-33.0); Mean Corpuscular Volume 94.1 fL (80.0-98.0); Mean Platelet Volume 9.7 fL (9.4-12.4); Monocytes Absolute Auto 0.5 X10*3/uL (0.1-1.2); Monocytes Percent Auto 8.7 % (2-11); Neutrophils Absolute Auto 2.4 x10*3/uL (2.0-8.3); Neutrophils Percent Auto 41.7 % (45-73); Nitrite Urine Negative (Negative); PH 7.5 (5.0-9.0); Platelet Count 276 X10*3/uL (160-400); Red Blood Count 4.71 X10*6/uL (4.60-5.80); Red Cell Distribution Width 11.9 % (11.0-16.0); Specific Gravity - Urine 1.015 (1.005-1.025); Urine Blood Negative (Negative); Urine Ketones Negative (Negative); Urine Protein Negative (Neg-Trace); White Blood Count 5.7 X10*3/uL (4.8-10.8)
[2023-09-20 11:29] LABS: Bacteria Urine None Seen (None Seen); Hyaline Casts Urine 0-2 /LPF (0-2); RBC Urine 0-2 /HPF (0-2); Squamous Epithelial Cell Urine 0-2 /HPF (0-2); WBC Urine 0-5 /HPF (0-5)
[2023-09-20 11:33] LABS: Estimated Average Glucose 103 mg/dL; Hemoglobin A1c % 5.2 % (<6.0)
[2023-09-20 11:48] LABS: Alanine Aminotransferase 19 U/L (0-40); Albumin Level 4.3 g/dL (3.5-5.0); Alkaline Phosphatase 73 U/L (39-117); Anion Gap 14 (12-20); Aspartate Amino Transferase 22 U/L (5-37); Blood Urea Nitrogen 14 mg/dL (9-16); Calcium 9.5 mg/dL (8.4-10.2); Carbon Dioxide 27 mmol/L (22-29); Chloride 104 mmol/L (96-108); Cholesterol 246 mg/dL (<200); Estimated Glomerular Filt Rate > 60; Glucose Fasting 91 mg/dL (60-99); HDL Cholesterol 56 mg/dL (>40); LDL Cholesterol Calculated 169 mg/dL (<100); Sodium 141 mmol/L (135-145); Total Protein 7.1 g/dL (6.5-8.0); Triglycerides 109 mg/dL (<150)
[2023-09-20 12:07] LABS: Creatinine Urine 93.27 mg/dL; Microalbumin Urine < 5.0 mg/L
[2023-09-20 14:43] LABS: PSA,Total (Free>4and<10) 0.48 ng/mL (0.00-4.00)
== END 2023-09-20 10:34 | disposition home or self-care (01) ==
LOC: HO.LNP 10:33
PROVIDERS: Visit Provider Internal Medicine
DX: Z00.00 Encounter for general adult medical examination without abnormal findings (principal); R73.09 Other abnormal glucose; E78.00 Pure hypercholesterolemia, unspecified; N40.0 Benign prostatic hyperplasia without lower urinary tract symptoms; D72.820 Lymphocytosis (symptomatic); I10 Essential (primary) hypertension; Z12.5 Encounter for screening for malignant neoplasm of prostate
CPT/HCPCS: 80053; 80061; 81001; 82043; 82570; 83036; 84153; 85025

== ENCOUNTER 2024-03-27 11:12 | Outpatient (REF) | payer BC, SELFPAY ==
[2024-03-27 12:01] LABS: Estimated Average Glucose 105 mg/dL; Hemoglobin A1C 132.7559 umol/L; Hemoglobin A1c % 5.3 % (<6.0); Total Hemoglobin (HGBA1C) 3813.6073 umol/L
[2024-03-27 12:15] LABS: Alanine Aminotransferase 29 U/L (0-40); Albumin Level 4.2 g/dL (3.5-5.0); Alkaline Phosphatase 76 U/L (39-117); Aspartate Amino Transferase 33 U/L (5-37); Bilirubin Direct 0.4 mg/dL (0.0-0.5); Bilirubin Total 1.3 mg/dL (0.0-1.0); Cholesterol 234 mg/dL (<200); Glucose Fasting 92 mg/dL (60-99); HDL Cholesterol 61 mg/dL (>40); LDL Cholesterol Calculated 154 mg/dL (<100); Triglycerides 96 mg/dL (<150)
[2024-03-27 12:33] LABS: Reflex LDLD? No
--- OUTSIDE RECORDS SUMMARY | 2024-04-01 07:49 | XMS_ITS ---
Author Organization Chencho Vyas MD Address [address] [place], [place] [id number] Care Team Providers Care Field Applications Specialist Name Role Phone Chencho Vyas Primary Care Provider [phone] ALLERGIES No Known Allergies RESULTS Component Value Reference Range Notes Occult Blood, Stool, Guaiac Reviewed date:09/27/2023 02:59:35 PM Interpretation:Negative Performing Lab: Notes/Report: Negative Occult Blood, Stool, Guaiac Neg REASON FOR VISIT annual visit MEDICATIONS Medication SIG (Take, Route, Frequency, Duration) Notes Start Date End Date Status Omeprazole 20 MG 1 capsule Orally Onc e a day 11/04/2018 Active Triamcinolone Acetonide 0.1 % 1 application Externally Twice a day for 30 days 09/25/2022 Active amLODIPine Besylate 5 MG 1 tablet Orally Once a day for 30 day(s) Not-Taking PARoxetine HCl 10 MG 1 tablet in the mor mari Orally Once a day for 30 day(s) Not-Taking SOCIAL HISTORY Tobacco Use: Social History Observation Description Date Details (start date - stop date) Never Smoker NA - NA Sex Assigned At : Social History Observation Description Sex Assigned At Unknown Tobacco Use/Smoking Question Answer Notes Patient is a nonsmoker Additional Findings: Tobacco Non-User Cu rrent non-smoker, currently using no form of tobacco Alcohol Screen Question Answer Notes Did you have a drink contain ing alcohol in the past year? Yes How often did you have a dri nk containing alcohol in the past year? Monthly or less (1 point) How many drinks did you have on a typical day when you were drinking in the past year? 1 or 2 drinks (0 point) How often did you have 6 or more drinks on one occasion in the past year? Never (0 point) Points 1 Interpretation Negative VITAL SIGNS BMI 27.16 kg/m2 09/27/2023 Blood pressure systolic 144 mm Hg 09/27/19 24 Blood pressure diastolic 70 mm Hg 024 Height 70.5 in 09/27/2023 Weight 192 lbs 09/27/2023 weight is up 11 pounds since 04-08-23 Encounters Encounter Location Date Provider Diagnosis Chencho Vyas MD [address] [place] [address] [place] [id number] 09/27/2023 Chencho Vyas Hypercholesterolemia E78.00 ; Annual physical exam Z00.00 ; Benign essential hypertension I10 ; Prostatism N40.0 ; Prediabetes R73.09 ; Lymphocytosis D72.820 ; Gastric reflux K21.9 ; Colon cancer screening Z12.11 and Depression screening Z13.31 ASSESSMENTS Encounter Date Diagnosis Assessment Notes Treatment Notes Treatment Clinical Notes 09/27/2023 Hypercholesterolemia (ICD-10 - E78.00) going back on [facility], will continue to monitor 09/27/2023 Annual physical exam (ICD-10 - Z00.00) labs reviewed and discussed with patient 09/27/2023 Benign essential hypertension (ICD-10 - I10) 09/27/2023 Prostatism (ICD-10 - N40.0) doesn' want meds for this at this time, will contnue to monitor 09/27/2023 Prediabetes (ICD-10 - R73.09) stable, no need for medication at this time 09/27/2023 Lymphocytosis (ICD-1 0 - D72.820) still present, will contiue to monitor 09/27/2023 Gastric reflux (ICD- 10 - K21.9) stable, will continue current regiment 09/27/2023 Colon cancer screeni ng (ICD-10 - Z12.11) guaiac negative 09/27/2023 Depression screening (ICD-10 - Z13.31) negative screen PLAN OF TREATMENT Medication Medication Name Sig Start Date Stop Date Notes Omeprazole 20 MG 1 capsule Orally Once a day 11/04/2018 Treatment Notes Assessment Notes Hypercholesterolemia going back on liane guzmán, will continue to monitor Annual physical exam labs reviewed and d iscussed with patient Prostatism doesn' want meds for this at this time, will contnue to monitor Prediabetes stable, no need for medication at this time Lymphocytosis still present, will contiue to monitor Gastric reflux stable, will continu e current regiment Colon cancer screening guaiac negative Depression screening negative screen Next Appt Details Follow Up: 6 Months, Reason: Provider Name:Chencho garay, 04/02/2024 09:00:00 AM, [address] [place] [address], [address] [place] [address], [phone], Provider Name:Chencho garay, 09/28/2024 07:15:00 AM, [address] [place] [address], [address], [phone], Provider Name:Chencho garay, 10/05/2024 10:30:00 AM, [address] [place] [address], [address] [place] [address], [phone], Progress Notes * Examination Category Sub-Category Detail Notes General Examination GENERAL APPEARANCE: well dev eloped, well nourished, in no acute distress HEAD: normocephalic, atrau matic EYES: pupils equal, round, reactive to light and accommodation, sclera non- icteric EARS: normal THROAT: clear NECK/THYROID: neck supple, full ra nge of motion, no cervical lymphadenopathy, no bruits HEART: regular rate and rhy thm, S1, S2 normal, no murmurs LUNGS: clear to auscultatio n bilaterally ABDOMEN: soft, nontender, non distended, bowel sounds present, normal, no organomegaly , no masses palpable NEUROLOGIC: nonfocal, motor stre ngth normal upper and lower extremities, sensory exam intact SKIN: warm and dry, no mei picious lesions EXTREMITIES: no clubbing, cyanosi s, or edema MALE GENITOURINARY: circumcised, no hydr ocele, no penile lesions or discharge, no testicular mass, testes descended bilaterally RECTAL EXAM: normal tone, no exte rnal hemorrhoids, no masses palpable, prostate normal, stool guaiac negative ORAL CAVITY: mucosa moist History and Physical Notes * HPI (History of Present Illness) Category Sub-Category Detail Notes Depression Screening PHQ-9 Little inte rest or pleasure in doing things: Not at all Feeling down, depressed, or hopeless: No t at all Trouble falling or staying asleep, or sl eeping too much: Not at all Feeling tired or having little energy: N ot at all Poor appetite or overeating: Not at all Feeling bad about yourself o r that you are a failure, or have let yourself or your family down: Not at all Trouble concentrating on thi ngs, such as reading the newspaper or watching television: Not at all Moving or speaking so slowly that other people could have noticed; or the opposite, being so fidgety or restless that you have been moving around a lot more than usual: Not at all Thoughts that you would be b antwan off or of hurting yourself in some way: Not at all Total Score: 0 Interpretation and Intervention Depression Sheryl guerra Findings: Negative Follow-Up for Depression: : review of PH Q-9 found negative result, no follow-up needed SDOH Questions SDOH Questions In the past year have you been worried about losing housing?: No In the past year have you or any family members you live with been unable to get any of the following when it was really needed? Check all that apply:: None Fall Risk History Have you had any falls with injury in the past year?: No Have you had two or more falls in the st year?: No Communication Needs Communication Needs Does the patient have a hearing impairment: No Does the patient have a vision impairmen t?: Yes ?If yes, what is the vision impairment?: Glasses Does the patient have a cognition impair ment?: No
--- OUTSIDE RECORDS SUMMARY | 2024-04-01 07:49 | XMS_ITS ---
Author Organization Chencho Vyas MD Address [address] [place], [place] [id number] Care Team Providers Care Harness And Bag Inspector Name Role Phone Chencho Vyas Primary Care Provider [phone] RESULTS Component Value Reference Range Notes Liver Panel Reviewed date:03/27/2024 03:00:10 PM Interpretation: Performing Lab:[address] [id number] Notes/Report: Bilirubin Total 1.3 0.0-1.0 mg/dL Bilirubin Direct 0.4 0.0-0.5 mg/dL Aspartate Amino Transferase 33 5-37 U/L Alanine Aminotransferase 29 0-40 U/L Total Protein 7.0 6.5-8.0 g/dL Albumin Level 4.2 3.5-5.0 g/dL Alkaline Phosphatase 76 39-117 U/L Glucose Fasting Reviewed date:03/27/2024 03:00:58 PM Interpretation: Performing Lab:[address] [id number] Notes/Report: Glucose Fasting 92 60-99 mg/dL Lipid Panel with Reflex Reviewed date:03/30/2024 12:58:01 PM Interpretation: Performing Lab:[address] [id number] Notes/Report: Triglycerides 96 <150 mg/dL Desirable Triglyceride: less than 150 mg/dL Borderline High Triglyceride 150-199 mg/dL High Triglyceride: 200-499 mg/dL Very High Triglyceride: greater than or equal to 5OO mg/dL Cholesterol 234 <200 mg/dL Desirable Cholesterol: less than 200 mg/dL Borderline High Cholesterol: 200-239 mg/dL High Cholesterol: greater than 239 mg/dL LDL Cholesterol Calculated 154 <100 mg/dL Desirable LDL: less than 100 mg/dL Near Optimal/Above Optimal LDL: 110-129 mg/dL Borderline High LDL: 130-159 mg/dL High LDL: 160-189 mg/dL Very High LDL: greater than or equal to 190 mg/dL HDL Cholesterol 61 >40 mg/dL Desirable HDL: greater than 40 mg/dL Note: This HDL assay may give artificially low results in patients with liver disease. Hemoglobin A1c Reviewed date:03/27/2024 12:24:19 PM Interpretation: Performing Lab:[facility], [address] [place] [id number] Notes/Report: Hemoglobin A1c % 5.3 <6.0 % Hemoglobin A1C Reference Range Adults: 4.8 - 6.0 % Non diabetic: < 6.0 % Goal: < 7.0 % Additional Action Suggested: > 8.0 % Note: Hemoglobin A1c results are invalid for patients with abnormal amounts of HbF. Blood transfusions may impact the HbA1c concentration in the patient sample. Estimated Average Glucose 105 eAG = Estimated average glucose which is %A1C expressed as average glucose, using the formula of the [id number] Average Glucose study (ADAG), Diabetes Care, Vol.31,#8, Nov. 2007 REASON FOR VISIT fasting lipids Encounters Encounter Location Date Provider Diagnosis Chencho Vyas MD [address] [place] [address] [place] [id number] 03/27/2024 Chencho Vyas Prediabetes R73.09 a nd Hypercholesterolemia E78.00 ASSESSMENTS Encounter Date Diagnosis Assessment Notes Treatment Notes Treatment Clinical Notes 03/27/2024 Prediabetes (ICD-10 - R73.09) 03/27/2024 Hypercholesterolemia (ICD-10 - E78.00) PLAN OF TREATMENT Next Appt Details Provider Name:Chencho garay, 04/02/2024 09:00:00 AM, [address] [place] [address], [address], K[place] Jose, [phone], Provider Name:Chencho garay, 09/28/2024 07:15:00 AM, [address] [place] [address], [address], [place], [phone], Provider Name:Chencho garay, 10/05/2024 10:30:00 AM, [address] [place] [address], [address], [place], [phone],
--- OUTSIDE RECORDS SUMMARY | 2024-04-01 07:49 | XMS_ITS ---
Author Organization Chencho Vyas MD Address [address] [place] [phone] Care Team Providers Care Wood Fuel Pelletizer Name Role Phone Chencho Vyas Primary Care Provider [phone] REASON FOR VISIT Flu vac IMMUNIZATIONS Vaccine Route Administration Date Status Comme nts Fluarix Quadrivalent - 150 IM Intramuscular 12/30/2023 Adm inistered Encounters Encounter Location Date Provider Diagnosis Chencho Vyas MD [address] [place] [phone] 12/30/2023 Chencho Vyas Encounter for immunization Z23 ASSESSMENTS Encounter Date Diagnosis Assessment Notes Treatment Notes Treatment Clinical Notes 12/30/2023 Encounter for immunization (ICD-10 - Z23) PLAN OF TREATMENT Next Appt Details Provider Name:Chencho garay, 04/02/2024 09:00:00 AM, [address] [place] [address], [address], [phone], Provider Name:Chencho garay, 09/28/2024 07:15:00 AM, [address] [place] [address], [address], [phone], Provider Name:Chencho garay, 10/05/2024 10:30:00 AM, [address] [place] [address], [address], [phone],
--- OUTSIDE RECORDS SUMMARY | 2024-04-01 07:49 | XMS_ITS | Patient Health Record ---
Author Organization Chencho Vyas MD Address [address] [place], [place] [id number] Care Team Providers Care Marketing Project Coordinator Name Role Phone Chencho Vyas Primary Care Provider ALLERGIES No Known Allergies RESULTS Component Value Reference Range Notes Complete Blood Count Auto Di ff Reviewed date:04/04/2023 12:28:19 PM Interpretation: Performing Lab:[facility], [address] [place] [phone] Notes/Report: White Blood Count 5.3 4.8-10.8 X10*3/uL Red Blood Count 4.74 4.60-5.80 X10*6/uL Hemoglobin 14.8 14.0-18.0 g/dl Hematocrit 43.6 42.0-52.0 % Mean Corpuscular Volume 92.0 80.0-98.0 fL Mean Corpuscular Hemoglobin 31.2 27.0-33.0 pg Mean Corpuscular HGB Conc 33.9 31.0-36.0 g/dl Red Cell Distribution Width 11.6 11.0-16.0 % Platelet Count 257 160-400 X10*3/uL Mean Platelet Volume 9.5 9.4-12.4 fL Neutrophils Percent Auto 52.3 45-73 % Imm Gran Pct Auto 0.4 0.0-0.4 % Lymphocytes Percent Auto 35.5 20-40 % Monocytes Percent Auto 8.6 2-11 % Eosinophils Percent Auto 2.1 0-4 % Basophils Percent Auto 1.1 0-2 % NRBC Pct Auto 0.0 0.0-0.2 /100WBC Neutrophils Absolute Auto 2.8 2.0-8.3 x10*3/u L Imm Gran Abs Auto 0.02 0.00-0.03 X10*3/uL Lymphocytes Absolute Auto 1.9 1.2-4.9 X10*3/u L Monocytes Absolute Auto 0.5 0.1-1.2 X10*3/uL Eosinophils Absolute Auto 0.1 0.0-0.4 X10*3/u L Basophils Absolute Auto 0.1 0.0-0.2 X10*3/uL NRBC Abs Auto 0.000 0.0-0.012 X10*3/uL Comprehensive Met. Panel Reviewed date:04/04/2023 12:30:45 PM Interpretation: Performing Lab:[facility], [address] [place] [phone] Notes/Report: Sodium 139 135-145 mmol/L Potassium 4.1 3.3-5.1 mmol/L Chloride 105 96-108 mmol/L Carbon Dioxide 26 22-29 mmol/L Anion Gap 12 12-20 Blood Urea Nitrogen 13 9-16 mg/dL Creatinine 0.82 0.5-1.4 mg/dL Creatinine Clr Calc Pharmacy 95.2 eGFR (calculated from the MDRD study equation) and eCrCl (calculated from the Cockcroft-Gault equation) are based on different parameters and may not yield comparable results. If eCrCl result is absurd, please check patient's height/weight. Estimated Glomerular Filt Rate > 60 NOTE: For -Finnish individuals, multiply the result by 1.210. Chronic Kidney Disease: Estimated GFR < 60 mL/min/1.73m2 Severe Kidney Disease: Estimated GFR < 15 mL/min/1.73m2 Glucose Random 105 60-115 mg/dL Calcium 9.4 8.4-10.2 mg/dL Bilirubin Total 0.9 0.0-1.0 mg/dL Aspartate Amino Transferase 17 5-37 U/L Alanine Aminotransferase 16 0-40 U/L Total Protein 7.2 6.5-8.0 g/dL Albumin Level 4.1 3.5-5.0 g/dL Alkaline Phosphatase 82 39-117 U/L Magnesium Reviewed date:04/04/2023 12:17:35 PM Interpretation: Performing Lab:[address] [phone] Notes/Report: Magnesium 2.4 1.6-2.6 mg/dL Troponin-I High Sensitivity Reviewed date:04/04/2023 12:28:36 PM Interpretation: Performing Lab:[address] [phone] Notes/Report: Troponin-I High Sensitivity < 2.7 <3.5-35.0 ng/ L The Arias high sensitivity Troponin-I results should be used in conjunction with other diagnostic information such as ECG, clinical observations and information, and patient symptoms to aid in the diagnosis of [place]. UA ClnCatch+Micro w/rflx Cul t Reviewed date:04/04/2023 12:16:14 PM Interpretation: Performing Lab:[facility], [address] [place] [phone] Notes/Report: Urine, Clean Catch Color Urine Yellow Appearance Urine Clear PH 6.5 5.0-9.0 Glucose Urine UA Negative Negative mg/dL Urine Blood Negative Negative Specific [place] - Urine 1.010 1.005-1.025 Urine Protein Negative Neg-Trace mg/dL Urine Ketones Negative Negative mg/dL Nitrite Urine Negative Negative Leukocyte Esterase Urine Negative Negative RBC Urine 0-2 0-2 /HPF WBC Urine 0-5 0-5 /HPF Squamous Epithelial Cell Urine 0-2 0-2 /HPF Bacteria Urine None Seen None Seen Hyaline Casts Urine 0-2 0-2 /LPF XR chest 1V Reviewed date:04/07/2023 03:52:01 PM Interpretation: Performing Lab: Notes/Report: [address] [address] XRay Report Signed Patient: Lio Conti MR#: [id number] 64 : 1960 Acct:[id number] Age/Sex: 62 / M ADM Date: 04/07/23 Loc: .ED Attending Dr: Ordering Physician: Generic ED Physician Date of Service: 04/07/23 Procedure(s): XR chest 1V Accession Number(s): [id number] cc: Chencho Vyas MD; Generic ED Physician EXAMINATION: XR CHEST CLINICAL INFORMATION: Right breast area foreign body question COMPARISON: None available. TECHNIQUE: Frontal view of the chest was obtained. FINDINGS: No significant abnormality is noted involving the heart, lungs, mediastinum, bony thorax or soft tissues. XR/XR chest 1V IMPRESSION: Unremarkable chest examination. Dictated By: Thang Hartley MD Signed By: <Electronically signed by Thang Hartley MD in OV> 04/07/23 1335 DD/ 1320 TD/TT: Permit Specialist: CLIFFORD Complete Blood Count Auto Di ff Reviewed date:04/10/2023 05:18:12 PM Interpretation: Performing Lab:[facility], [address] [place] [phone] Notes/Report: White Blood Count 6.8 4.8-10.8 X10*3/uL Red Blood Count 4.44 4.60-5.80 X10*6/uL Hemoglobin 14.0 14.0-18.0 g/dl Hematocrit 41.0 42.0-52.0 % Mean Corpuscular Volume 92.3 80.0-98.0 fL Mean Corpuscular Hemoglobin 31.5 27.0-33.0 pg Mean Corpuscular HGB Conc 34.1 31.0-36.0 g/dl Red Cell Distribution Width 11.9 11.0-16.0 % Platelet Count 235 160-400 X10*3/uL Mean Platelet Volume 9.4 9.4-12.4 fL Neutrophils Percent Auto 60.2 45-73 % Imm Gran Pct Auto 0.3 0.0-0.4 % Lymphocytes Percent Auto 28.4 20-40 % Monocytes Percent Auto 8.0 2-11 % Eosinophils Percent Auto 2.4 0-4 % Basophils Percent Auto 0.7 0-2 % NRBC Pct Auto 0.0 0.0-0.2 /100WBC Neutrophils Absolute Auto 4.1 2.0-8.3 x10*3/u L Imm Gran Abs Auto 0.02 0.00-0.03 X10*3/uL Lymphocytes Absolute Auto 1.9 1.2-4.9 X10*3/u L Monocytes Absolute Auto 0.5 0.1-1.2 X10*3/uL Eosinophils Absolute Auto 0.2 0.0-0.4 X10*3/u L Basophils Absolute Auto 0.1 0.0-0.2 X10*3/uL NRBC Abs Auto 0.000 0.0-0.012 X10*3/uL Comprehensive Met. Panel Reviewed date:04/10/2023 05:17:51 PM Interpretation: Performing Lab:[facility], [address] [place] [phone] Notes/Report: Sodium 141 135-145 mmol/L Potassium 4.3 3.3-5.1 mmol/L Chloride 108 96-108 mmol/L Carbon Dioxide 27 22-29 mmol/L Anion Gap 10 12-20 Blood Urea Nitrogen 11 9-16 mg/dL Creatinine 0.87 0.5-1.4 mg/dL Creatinine Clr Calc Pharmacy 89.7 eGFR (calculated from the MDRD study equation) and eCrCl (calculated from the Cockcroft-Gault equation) are based on different parameters and may not yield comparable results. If eCrCl result is absurd, please check patient's height/weight. Estimated Glomerular Filt Rate > 60 NOTE: For -Finnish individuals, multiply the result by 1.210. Chronic Kidney Disease: Estimated GFR < 60 mL/min/1.73m2 Severe Kidney Disease: Estimated GFR < 15 mL/min/1.73m2 Glucose Random 116 60-115 mg/dL Calcium 9.5 8.4-10.2 mg/dL Bilirubin Total 0.7 0.0-1.0 mg/dL Aspartate Amino Transferase 20 5-37 U/L Alanine Aminotransferase 17 0-40 U/L Total Protein 7.3 6.5-8.0 g/dL Albumin Level 4.3 3.5-5.0 g/dL Alkaline Phosphatase 85 39-117 U/L Complete Blood Count Auto Di ff Reviewed date:09/20/2023 02:03:07 PM Interpretation: Performing Lab:[facility], [address] [place] [phone] Notes/Report: White Blood Count 5.7 4.8-10.8 X10*3/uL Red Blood Count 4.71 4.60-5.80 X10*6/uL Hemoglobin 15.4 14.0-18.0 g/dl Hematocrit 44.3 42.0-52.0 % Mean Corpuscular Volume 94.1 80.0-98.0 fL Mean Corpuscular Hemoglobin 32.7 27.0-33.0 pg Mean Corpuscular HGB Conc 34.8 31.0-36.0 g/dl Red Cell Distribution Width 11.9 11.0-16.0 % Platelet Count 276 160-400 X10*3/uL Mean Platelet Volume 9.7 9.4-12.4 fL Neutrophils Percent Auto 41.7 45-73 % Imm Gran Pct Auto 0.3 0.0-0.4 % Lymphocytes Percent Auto 44.7 20-40 % Monocytes Percent Auto 8.7 2-11 % Eosinophils Percent Auto 3.7 0-4 % Basophils Percent Auto 0.9 0-2 % NRBC Pct Auto 0.0 0.0-0.2 /100WBC Neutrophils Absolute Auto 2.4 2.0-8.3 x10*3/u L Imm Gran Abs Auto 0.02 0.00-0.03 X10*3/uL Lymphocytes Absolute Auto 2.6 1.2-4.9 X10*3/u L Monocytes Absolute Auto 0.5 0.1-1.2 X10*3/uL Eosinophils Absolute Auto 0.2 0.0-0.4 X10*3/u L Basophils Absolute Auto 0.1 0.0-0.2 X10*3/uL NRBC Abs Auto 0.000 0.0-0.012 X10*3/uL Comprehensive [place]. Panel Fa st Reviewed date:09/20/2023 02:03:25 PM Interpretation: Performing Lab:[facility], [address] [place] [phone] Notes/Report: Sodium 141 135-145 mmol/L Potassium 4.0 3.3-5.1 mmol/L Chloride 104 96-108 mmol/L Carbon Dioxide 27 22-29 mmol/L Anion Gap 14 12-20 Blood Urea Nitrogen 14 9-16 mg/dL Creatinine 0.85 0.5-1.4 mg/dL Estimated Glomerular Filt Rate > 60 NOTE: For -Finnish individuals, multiply the result by 1.210. Chronic Kidney Disease: Estimated GFR < 60 mL/min/1.73m2 Severe Kidney Disease: Estimated GFR < 15 mL/min/1.73m2 Glucose Fasting 91 60-99 mg/dL Calcium 9.5 8.4-10.2 mg/dL Bilirubin Total 1.0 0.0-1.0 mg/dL Aspartate Amino Transferase 22 5-37 U/L Alanine Aminotransferase 19 0-40 U/L Total Protein 7.1 6.5-8.0 g/dL Albumin Level 4.3 3.5-5.0 g/dL Alkaline Phosphatase 73 39-117 U/L Lipid Panel Reviewed date:09/20/2023 12:50:28 PM Interpretation: Performing Lab:[address] [phone] Notes/Report: Triglycerides 109 <150 mg/dL Desirable Triglyceride: less than 150 mg/dL Borderline High Triglyceride 150-199 mg/dL High Triglyceride: 200-499 mg/dL Very High Triglyceride: greater than or equal to 5OO mg/dL Cholesterol 246 <200 mg/dL Desirable Cholesterol: less than 200 mg/dL Borderline High Cholesterol: 200-239 mg/dL High Cholesterol: greater than 239 mg/dL LDL Cholesterol Calculated 169 <100 mg/dL Desirable LDL: less than 100 mg/dL Near Optimal/Above Optimal LDL: 110-129 mg/dL Borderline High LDL: 130-159 mg/dL High LDL: 160-189 mg/dL Very High LDL: greater than or equal to 190 mg/dL HDL Cholesterol 56 >40 mg/dL Desirable HDL: greater than 40 mg/dL Note: This HDL assay may give artificially low results in patients with liver disease. PSA,Total (Free>4and<10) Reviewed date:09/22/2023 06:11:55 PM Interpretation: Performing Lab:[address] [phone] Notes/Report: PSA,Total (Free>4and<10) 0.48 0.00-4.00 ng/mL A Free PSA was not performed: The percentage of Free PSA can be used to enhance the differentiation of prostate cancer from benign prostatic disease in subjects whose PSA levels are between 4.0 and 10.0 ng/mL. For subjects whose PSA levels are below 4.0 or above 10.0 ng/mL, the risk of prostate cancer is determined on the basis of the PSA alone. Therefore the % Free PSA is recommended only for those subjects whose PSA levels are between 4.0 and 10.0 ng/mL. PSA methodology: Arias Alinity i Chemiluminescent Microparticle Immunoassay (CMIA) Microalbumin, Random Reviewed date:09/20/2023 12:44:27 PM Interpretation: Performing Lab:[address] [phone] Notes/Report: Creatinine Urine 93.27 Microalbumin Urine < 5.0 Microalbum/Creatinine Ratio Ur TNP <30 ug/mg cr Unable to calculate albumin/creatinine ratio due to low microalbumin or creatinine result. Hemoglobin A1c Reviewed date:09/20/2023 12:36:12 PM Interpretation: Performing Lab:[address] [address] Notes/Report: Hemoglobin A1c % 5.2 <6.0 % Hemoglobin A1C Reference Range Adults: 4.8 - 6.0 % Non diabetic: < 6.0 % Goal: < 7.0 % Additional Action Suggested: > 8.0 % Note: Hemoglobin A1c results are invalid for patients with abnormal amounts of HbF. Blood transfusions may impact the HbA1c concentration in the patient sample. Estimated Average Glucose 103 eAG = Estimated average glucose which is %A1C expressed as average glucose, using the formula of the A8E-Popvwkt Average Glucose study (ADAG), Diabetes Care, Vol.31,#8, Nov. 2007 UA ClnCatch+Micro w/rflx Cul t Reviewed date:09/20/2023 02:04:24 PM Interpretation: Performing Lab:[address] [phone] Notes/Report: Urine, Clean Catch Color Urine Yellow Appearance Urine Clear PH 7.5 5.0-9.0 Glucose Urine UA Negative Negative mg/dL Urine Blood Negative Negative Specific [place] - Urine 1.015 1.005-1.025 Urine Protein Negative Neg-Trace mg/dL Urine Ketones Negative Negative mg/dL Nitrite Urine Negative Negative Leukocyte Esterase Urine Negative Negative RBC Urine 0-2 0-2 /HPF WBC Urine 0-5 0-5 /HPF Squamous Epithelial Cell Urine 0-2 0-2 /HPF Bacteria Urine None Seen None Seen Hyaline Casts Urine 0-2 0-2 /LPF Occult Blood, Stool, Guaiac Reviewed date:09/27/2023 02:59:35 PM Interpretation:Negative Performing Lab: Notes/Report: Negative Occult Blood, Stool, Guaiac Neg Emeka Morales Reviewed date:03/27/2024 12:24:37 PM Interpretation: Performing Lab:[facility], [address] [place] [phone] Notes/Report: Emeka Morales See Note Specimen held untested for 24 hours; Call to request Chemistry testing. Liver Panel Reviewed date:03/27/2024 03:00:10 PM Interpretation: Performing Lab:[facility], [address] [place] [phone] Notes/Report: Bilirubin Total 1.3 0.0-1.0 mg/dL Bilirubin Direct 0.4 0.0-0.5 mg/dL Aspartate Amino Transferase 33 5-37 U/L Alanine Aminotransferase 29 0-40 U/L Total Protein 7.0 6.5-8.0 g/dL Albumin Level 4.2 3.5-5.0 g/dL Alkaline Phosphatase 76 39-117 U/L Glucose Fasting Reviewed date:03/27/2024 03:00:58 PM Interpretation: Performing Lab:[facility], [address] [place] [phone] Notes/Report: Glucose Fasting 92 60-99 mg/dL Lipid Panel with Reflex Reviewed date:03/30/2024 12:58:01 PM Interpretation: Performing Lab:[facility], [address] [place] [phone] Notes/Report: Triglycerides 96 <150 mg/dL Desirable Triglyceride: [...] A1c Reviewed date:03/27/2024 12:24:19 PM Interpretation: Performing Lab:[facility], [address] [place] [phone] Notes/Report: Hemoglobin A1c % 5.3 <6.0 % [...] average glucose, using the formula of the L7A-Vjvrbrj Average Glucose study (ADAG), Diabetes Care, Vol.31,#8, Nov. 2007 REASON FOR REFERRAL No Information MEDICATIONS Medication SIG (Take, Route, Frequency, Duration) [...] Once a day for 30 day(s) Not-Taking IMMUNIZATIONS Vaccine Route Administration Date Status Comme nts DECLINED, FLU Unknown 05/25/2013 Administered Flu Vaccine Unknown 04/06/2015 Administered [facility] T[facility]P IM Intramuscular 02/19/2016 Administered [facility] Flu Vaccine IM Intramuscular 02/19/2016 Administered [facility] PPSV23 (Pnemovax) IM Intramuscular 07/29/2017 Administered [facility] Quadrivalent Unknown 02/11/2018 Administered At work Fluarix Quadrivalent Unknown 01/20/2019 Administered At school Fluarix Quadrivalent Unknown 12/28/[address] [facility] Prevnar 13 IM Intramuscular 09/29/2021 Administered Fluarix Quadrivalent Unknown 01/19/[address] [facility] Fluarix Quadrivalent IM Intramuscular 12/28/2022 Administe red Fluarix Quadrivalent - 150 IM Intramuscular 12/30/2023 Administered Flu Vaccine Unknown 06/15/2014 Refused Covid Vaccine Unknown 09/05/2020 Refused Tetanus Unknown 02/19/2016 Pending SOCIAL HISTORY Tobacco Use: Social History Observation [...] Never (0 point) Points 1 Interpretation Negative PROBLEMS Problem Type ICD Code Onset Dates Problem Status W/U Status Risk SNOMED Code Notes Problem Lymphocytosis (D72.820) Active confirmed Lymphocytosis (13253173) Problem Prostatism (N40.0) Active confirmed 114 30861 Problem Prediabetes (R73.09) Active confirmed P rediabetes (438206081) Problem Benign essential hypertension (I10) Active confirmed Benign essential hypertension (6960687) Problem Stress (F43.9) Active confirmed 8914701 0 Problem Right bundle branch block (I45.10) Active confirmed Right bundle branch block (82608697) Problem Hypercholesterolemia (E78.00) Active confirmed 09469138 Problem Left inguinal hernia (K40.90) Active confirmed 142192668 Problem Indigestion (K30) Active confirmed 1620 26143 Problem Gastric reflux (K21.9) Active confirmed 429273315 VITAL SIGNS Blood pressure diastolic 70 mm Hg 09/27/2023 darya ght is up 11 pounds since 04-08-23 Height 70.5 in 09/27/2023 weight is up 11 pounds since 04-08-23 Blood pressure systolic 144 mm Hg 09/27/2023 weig ht is up 11 pounds since 04-08-23 Weight 192 lbs 09/27/2023 weight is up 11 pounds since 04-08-23 BMI 27.16 kg/m2 09/27/2023 weight is up 11 pounds since 04-08-23 Encounters Encounter Location Date Provider Diagnosis Chencho Vyas MD [address] [place] [id number] 09/27/2023 Chencho Vyas Hypercholesterolemia E78.00 ; Annual physical exam Z00.00 ; Benign essential hypertension I10 ; Prostatism N40.0 ; Prediabetes R73.09 ; Lymphocytosis D72.820 ; Gastric reflux K21.9 ; Colon cancer screening Z12.11 and Depression screening Z13.31 Chencho Vyas MD [address] [place] [id number] 04/08/2023 Chencho Vyas Gastric reflux K21.9 and Puncture wound T14.8XXA Chencho Vyas MD [address] [place] [address] [id number] 09/20/2023 Chencho Vyas Annual physical exam Z00.00 ; Prediabetes R73.09 ; Hypercholesterolemia E78.00 ; Prostatism N40.0 ; Lymphocytosis D72.820 and Benign essential hypertension I10 Chencho Vyas MD [address] [place] [id number] 03/27/2024 Chencho Vyas Prediabetes R73.09 a nd Hypercholesterolemia E78.00 Chencho Vyas MD [address] [place] [id number] 12/30/2023 Chencho Vyas Encounter for immuni zation Z23 Chencho Vyas MD [address] [place] [address] Drive [address] [place] [id number] 04/05/2023 Chencho Vyas MD [address] [place] [address] [id number] 04/10/2023 Chencho Vyas ASSESSMENTS Encounter Date Diagnosis Assessment Notes Treatment Notes Treatment Clinical Notes 09/27/2023 Annual physical exam (ICD-10 - Z00.00) labs reviewed and discussed with patient 09/27/2023 Hypercholesterolemia (ICD-10 - E78.00) going back on garlique, will continue to monitor 04/08/2023 Puncture wound (ICD- 10 - T14.8XXA) puncture would upper abdomen, was in the er last night and is doing well. 04/08/2023 Gastric reflux (ICD- 10 - K21.9) doing well at present 09/20/2023 Annual physical exam (ICD-10 - Z00.00) 09/20/2023 Prediabetes (ICD-10 - R73.09) 03/27/2024 Prediabetes (ICD-10 - R73.09) 03/27/2024 Hypercholesterolemia (ICD-10 - E78.00) 12/30/2023 Encounter for immuni zation (ICD-10 - Z23) 09/27/2023 Benign essential hypertension (ICD-10 - I10) 09/20/2023 Hypercholesterolemia (ICD-10 - E78.00) 09/27/2023 Prostatism (ICD-10 - N40.0) doesn' want meds for this at this time, will contnue to monitor 09/20/2023 Prostatism (ICD-10 - N40.0) 09/27/2023 Prediabetes (ICD-10 - R73.09) stable, no need for medication at this time 09/20/2023 Lymphocytosis (ICD-1 0 - D72.820) 09/27/2023 Lymphocytosis (ICD-1 0 - D72.820) still present, will contiue to monitor 09/20/2023 Benign essential hypertension (ICD-10 - I10) 09/27/2023 Gastric reflux (ICD- 10 - K21.9) stable, will continue current regiment 09/27/2023 Colon cancer screeni ng (ICD-10 - Z12.11) guaiac negative 09/27/2023 Depression screening (ICD-10 - Z13.31) negative screen PLAN OF TREATMENT Pending Test Test Name Order Date Electrocardiogram (EKG) 03/12/2011 Electrocardiogram (EKG) 08/15/2017 Next Appt Details Provider Name:Chencho garay, 04/02/2024 09:00:00 AM, [address] [place] [address], [address], [place], [phone], Provider Name:Chencho garay, 09/28/2024 07:15:00 AM, [address] [place] [address], [address], [place], [place], [phone], Provider Name:Chencho camposr, 10/05/2024 10:30:00 AM, [address], [address], [place], [place], [phone], Insurance Providers Payer Name Payer Address Payer Phone Subscriber Number Group Number Insured Name Patient Relationship to Insured Coverage Start Date Coverage End Date [employer] [address] [place], [place] [id number] Lio Conti Self - patient is the insured MEDICAL (GENERAL) HISTORY Medical History History ICD Code colonoscopy 2009 due in 10 y ears going to get hernia fixed qnd then get colonoscopy:12/12 colonoscopy repeat 10 years Lymphocytosis D72.820 Lymphocytosis Surgical History Surgery Date(Month/Year) Repair LT Inguinal Hernia w/o Mesh - Dr. Ford 09/2018
== END 2024-03-27 11:13 | disposition home or self-care (01) ==
LOC: HO.LNP 11:12
PROVIDERS: Visit Provider Internal Medicine
DX: E78.00 Pure hypercholesterolemia, unspecified (principal); R73.03 Prediabetes
CPT/HCPCS: 80061; 80076; 82947; 83036

== ENCOUNTER 2024-04-14 10:42 | Emergency (ER) | payer BC, SELFPAY ==
--- NOTE | ~2024-04-14 | XR_ITS ---
EXAMINATION: XR CHEST CLINICAL INFORMATION: cough, SOB COMPARISON: 04/07/2023. TECHNIQUE: 2 views of the chest were obtained. FINDINGS: Elevated right hemidiaphragm. The cardiac, hilar, and mediastinal contours are normal. The lungs are clear bilaterally. There is no pneumothorax or pleural effusion. There is no focal osseous or soft tissue abnormality. XR/XR chest 2V IMPRESSION: No active pulmonary disease. No interval change. Electronically signed by: Tin Strickland MD 04/14/2024 12:19 PM EDYTA
[2024-04-14 10:44] VITALS: BP 150/85; PULSE 69; RESP 18; TEMP 37; O2SAT 98; BMI 27.3
--- OUTSIDE RECORDS SUMMARY | 2024-04-14 10:45 | XMS_ITS ---
Author Organization Chencho Vyas MD Address [address] [place], [place] [id number] Care Team Providers Care Visual Training Aide Name Role Phone Chencho Vyas Primary Care Provider RESULTS Component Value Reference Range Notes Liver Panel Reviewed date:03/27/2024 03:00:10 PM Interpretation: Performing Lab:[address] [phone] Notes/Report: Bilirubin Total 1.3 0.0-1.0 mg/dL Bilirubin Direct 0.4 0.0-0.5 mg/dL Aspartate Amino Transferase 33 5-37 U/L Alanine Aminotransferase 29 0-40 U/L Total Protein 7.0 6.5-8.0 g/dL Albumin Level 4.2 3.5-5.0 g/dL Alkaline Phosphatase 76 39-117 U/L Glucose Fasting Reviewed date:03/27/2024 03:00:58 PM Interpretation: Performing Lab:[address] [address] Notes/Report: Glucose Fasting 92 60-99 mg/dL Lipid Panel with Reflex Reviewed date:03/30/2024 12:58:01 PM Interpretation: Performing Lab:[address] [phone] Notes/Report: Triglycerides 96 <150 mg/dL Desirable Triglyceride: [...] A1c Reviewed date:03/27/2024 12:24:19 PM Interpretation: Performing Lab:[facility], [address] [place] [phone] Notes/Report: Hemoglobin A1c % 5.3 <6.0 % [...] average glucose, using the formula of the S4B-Lwbgaye Average Glucose study (ADAG), Diabetes Care, Vol.31,#8, Nov. 2007 REASON FOR VISIT fasting lipids Encounters Encounter Location Date Provider Diagnosis Chencho Vyas MD [address] [place] [address] [place] [id number] 03/27/2024 Chencho Vyas Prediabetes R73.09 a nd Hypercholesterolemia E78.00 ASSESSMENTS Encounter Date Diagnosis Assessment Notes Treatment Notes Treatment Clinical Notes 03/27/2024 Prediabetes (ICD-10 - R73.09) 03/27/2024 Hypercholesterolemia (ICD-10 - E78.00) PLAN OF TREATMENT Next Appt Details Provider Name:Chencho garay, 09/28/2024 07:15:00 AM, [address] [place] [address], [address], [place], [phone], Provider Name:Chencho garay, 10/05/2024 10:30:00 AM, [address] [facility], [address], [place], [phone],
--- OUTSIDE RECORDS SUMMARY | 2024-04-14 10:45 | XMS_ITS | Patient Health Record ---
Author Organization Chencho Vyas MD Address [address] [place], [place] [id number] Care Team Providers Care Chief Of Vital Statistics Name Role Phone Chencho Vyas Primary Care Provider ALLERGIES No Known Allergies RESULTS Component Value Reference Range Notes Complete Blood Count Auto Di ff Reviewed date:09/20/2023 02:03:07 PM Interpretation: Performing Lab:[facility], [address] [place] [phone] Notes/Report: White Blood Count 5.7 4.8-10.8 X10*3/uL [...] NRBC Abs Auto 0.000 0.0-0.012 X10*3/uL Comprehensive [place]. Panel Fa st Reviewed date:09/20/2023 02:03:25 PM Interpretation: Performing Lab:[address] [phone] Notes/Report: Sodium 141 135-145 mmol/L Potassium 4.0 3.3-5.1 mmol/L Chloride 104 96-108 mmol/L Carbon Dioxide 27 22-29 mmol/L Anion Gap 14 12-20 Blood Urea Nitrogen 14 9-16 mg/dL Creatinine 0.85 0.5-1.4 mg/dL Estimated Glomerular Filt Rate > 60 NOTE: For -Mosotho individuals, multiply the result by 1.210. Chronic [...] Panel Reviewed date:09/20/2023 12:50:28 PM Interpretation: Performing Lab:[address] [phone] Notes/Report: Triglycerides 109 <150 mg/dL Desirable Triglyceride: [...] (Free>4and<10) Reviewed date:09/22/2023 06:11:55 PM Interpretation: Performing Lab:[address] [phone] Notes/Report: PSA,Total (Free>4and<10) 0.48 0.00-4.00 ng/mL A [...] Random Reviewed date:09/20/2023 12:44:27 PM Interpretation: Performing Lab:[address] [phone] Notes/Report: Creatinine Urine 93.27 Microalbumin Urine < 5.0 Microalbum/Creatinine Ratio Ur TNP <30 ug/mg cr Unable to calculate albumin/creatinine ratio due to low microalbumin or creatinine result. Hemoglobin A1c Reviewed date:09/20/2023 12:36:12 PM Interpretation: Performing Lab:[facility], [address] [place] [phone] Notes/Report: Hemoglobin A1c % 5.2 <6.0 % [...] average glucose, using the formula of the X8B-Xcyqnph Average Glucose study (ADAG), Diabetes Care, Vol.31,#8, 2007 UA ClnCatch+Micro w/rflx Cul t Reviewed date:09/20/2023 02:04:24 PM Interpretation: Performing Lab:[facility], [address] [place] [phone] Notes/Report: Urine, Clean Catch Color Urine Yellow Appearance Urine Clear PH 7.5 5.0-9.0 Glucose Urine UA Negative Negative mg/dL Urine Blood Negative Negative Specific [place] - Urine 1.015 1.005-1.025 Urine Protein Negative [...] Notes/Report: Negative Occult Blood, Stool, Guaiac Neg Hold Gold Reviewed date:03/27/2024 12:24:37 PM Interpretation: Performing Lab:[facility], [address] [place] [phone] Notes/Report: Hold Gold See Note Specimen held untested for 24 hours; Call to request Chemistry testing. Liver Panel Reviewed date:03/27/2024 03:00:10 PM Interpretation: Performing Lab:[facility], [address] [place] [phone] Notes/Report: Bilirubin Total 1.3 0.0-1.0 mg/dL Bilirubin Direct 0.4 0.0-0.5 mg/dL Aspartate Amino Transferase 33 5-37 U/L Alanine Aminotransferase 29 0-40 U/L Total Protein 7.0 6.5-8.0 g/dL Albumin Level 4.2 3.5-5.0 g/dL Alkaline Phosphatase 76 39-117 U/L Glucose Fasting Reviewed date:03/27/2024 03:00:58 PM Interpretation: Performing Lab:[facility], [address] [place] [phone] Notes/Report: Glucose Fasting 92 60-99 mg/dL Lipid Panel with Reflex Reviewed date:03/30/2024 12:58:01 PM Interpretation: Performing Lab:[facility], [address] [place] [phone] Notes/Report: Triglycerides 96 <150 mg/dL Desirable Triglyceride: [...] A1c Reviewed date:03/27/2024 12:24:19 PM Interpretation: Performing Lab:[address] [phone] Notes/Report: Hemoglobin A1c % 5.3 <6.0 % [...] average glucose, using the formula of the J0J-Zwpnkfo Average Glucose study (ADAG), Diabetes Care, Vol.31,#8, [...] Flu Vaccine Unknown 04/06/2015 Administered Stop and Sh op TDaP IM Intramuscular 02/19/2016 Administered Stop [...] Notes Problem Lymphocytosis (D72.820) Active confirmed Lymphocytosis (29105155) Problem Prostatism (N40.0) Active confirmed 114 [address] Problem Bergman's esophagus without dysplasia (K22.70) Active confirmed 787744380 Problem Prediabetes (R73.09) Active confirmed P rediabetes (326659664) Problem Benign essential hypertension (I10) Active confirmed Benign essential hypertension (5764578) Problem Stress (F43.9) Active confirmed 3343586 0 Problem Right bundle branch block (I45.10) Active confirmed Right bundle branch block (65539713) Problem Hypercholesterolemia (E78.00) Active confirmed 50386603 Problem Left inguinal hernia (K40.90) Active confirmed 821189232 Problem Indigestion (K30) Active confirmed 1620 98185 Problem Gastric reflux (K21.9) Active confirmed 269997496 VITAL SIGNS Blood pressure diastolic 82 mm Hg 04/02/2024 Height 70.5 in 04/02/2024 Blood pressure systolic 154 mm Hg 04/02/2024 Weight 192 lbs 04/02/2024 BMI 27.16 kg/m2 04/02/2024 Encounters Encounter Location Date Provider Diagnosis Chencho Vyas MD [address] [place] [id number] 09/27/2023 Chencho Vyas Hypercholesterolemia E78.00 ; Annual physical exam Z00.00 ; Benign essential hypertension I10 ; Prostatism N40.0 ; Prediabetes R73.09 ; Lymphocytosis D72.820 ; Gastric reflux K21.9 ; Colon cancer screening Z12.11 and Depression screening Z13.31 Chencho Vyas MD [address] [place] [id number] 09/20/2023 Chencho Vyas Annual physical exam Z00.00 ; Prediabetes R73.09 ; Hypercholesterolemia E78.00 ; Prostatism N40.0 ; Lymphocytosis D72.820 and Benign essential hypertension I10 Chencho Vyas MD [address] [place] [address] [id number] 03/27/2024 Chencho Vyas Prediabetes R73.09 a nd Hypercholesterolemia E78.00 Chencho Vyas MD [address] [place] [id number] 12/30/2023 Chencho Vyas Encounter for immuni zation Z23 Chencho Vays MD [address] [place] [id number] 04/02/2024 Chencho Vyas Hypercholesterolemia E78.00 ; Benign essential hypertension I10 ; Bergman's esophagus without dysplasia K22.70 and Prediabetes R73.09 ASSESSMENTS Encounter Date Diagnosis Assessment Notes Treatment Notes Treatment Clinical Notes 09/27/2023 Annual physical exam (ICD-10 - Z00.00) labs reviewed and discussed with patient 09/27/2023 Hypercholesterolemia (ICD-10 - E78.00) going back on [facility], will continue to monitor 09/20/2023 Annual physical exam (ICD-10 - Z00.00) 09/20/2023 Prediabetes (ICD-10 - R73.09) 03/27/2024 Prediabetes (ICD-10 - R73.09) 03/27/2024 Hypercholesterolemia (ICD-10 - E78.00) 12/30/2023 Encounter for immuni zation (ICD-10 - Z23) 04/02/2024 Benign essential hypertension (ICD-10 - I10) running a little high today, will continue to monitor 04/02/2024 Hypercholesterolemia (ICD-10 - E78.00) just a little high. advised diet, will continue to monitor 09/27/2023 Benign essential hypertension (ICD-10 - I10) 09/20/2023 Hypercholesterolemia (ICD-10 - E78.00) 04/02/2024 Bergman's esophagus without dysplasia (ICD-10 - K22.70) remain on omeprazole 09/27/2023 Prostatism (ICD-10 - N40.0) doesn' want meds for this at this time, will contnue to monitor 09/20/2023 Prostatism (ICD-10 - N40.0) 04/02/2024 Prediabetes (ICD-10 - R73.09) stable, no need for medication at this time 09/27/2023 Prediabetes (ICD-10 - R73.09) stable, no [...] (EKG) 08/15/2017 Next Appt Details Provider Name:Chencho Schilling ier, 09/28/2024 07:15:00 AM, [address] [place] [address], [address], [phone], Provider Name:Chencho Schilling ier, 10/05/2024 10:30:00 AM, [address] [place] [address], [address], [phone], Insurance Providers Payer Name Payer Address Payer Phone Subscriber Number Group Number Insured Name Patient Relationship to Insured Coverage Start Date Coverage End Date [employer] [address] [place], [place] [id number] Lio Conti Self - patient is the insured MEDICAL (GENERAL) HISTORY Medical History History ICD Code colonoscopy 2009 due in 10 y ears going to get hernia fixed qnd then get colonoscopy:12/12 colonoscopy repeat 10 years Lymphocytosis D72.820 Lymphocytosis Surgical History Surgery Date(Month/Year) Repair LT Inguinal Hernia w/o Mesh - Dr. Ford 09/2018
--- OUTSIDE RECORDS SUMMARY | 2024-04-14 10:45 | XMS_ITS ---
Author Organization Chencho Vyas MD Address [address] [place] [phone] Care Team Providers Care Door Person Name Role Phone Chencho Vyas Primary Care Provider [phone] REASON FOR VISIT Flu vac IMMUNIZATIONS Vaccine Route Administration Date Status Comme nts Fluarix Quadrivalent - 150 IM Intramuscular 12/30/2023 Adm inistered Encounters Encounter Location Date Provider Diagnosis Chencho Vyas MD [address] [place] [id number] 12/30/2023 Chencho Vyas Encounter for immunization Z23 ASSESSMENTS Encounter Date Diagnosis Assessment Notes Treatment Notes Treatment Clinical Notes 12/30/2023 Encounter for immunization (ICD-10 - Z23) PLAN OF TREATMENT Next Appt Details Provider Name:Chencho garay, 09/28/2024 07:15:00 AM, [address] [place] [address], [address], [phone], Provider Name:Chencho garay, 10/05/2024 10:30:00 AM, [address] [place] [address], [address], [phone],
--- NOTE | 2024-04-14 10:49 | ECG_ITS ---
Test Reason : chest pain Blood Pressure : / mmHG Vent. Rate : 062 BPM Atrial Rate : 062 BPM P-R Int : 146 ms QRS Dur : 132 ms QT Int : 442 ms P-R-T Axes : 038 -01 -21 degrees QTc Int : 448 ms Normal sinus rhythm Right bundle branch block T wave abnormality, consider lateral ischemia Abnormal ECG When compared with ECG of 04-APR-2023 09:43, No significant change was found Referred By: Sarai Rey Electronically Signed By:Leobardo Avila
--- NOTE | 2024-04-14 10:51 | ED_ITS ---
HPI - Syncope General Chief Complaint: Syncope Stated Complaint: Syncopal episode @ work Time Seen by Provider: 04/14/24 11:09 Source: patient Mode of arrival: ambulatory History of Present Illness ED Provider: Yaakov CURRY narrative: 63-year-old male who has no past medical history and takes no prescription medications other than omeprazole and reports to me that he does not drink as much as he use to and states that for the past week he has had a cough with some chest congestion as well as a headache and some body aches and that at work he was sitting and began feeling nauseous and lightheaded and says that he almost passed out, states that a co-worker supported him from behind. He denies any fevers or chills. Related Data Home Medications ?Medication ?Instructions ?Recorded ?Confirmed omeprazole 10 mg capsule,delayed 10 mg PO DAILY PRN Gastric Reflux 04/20/20 04/12/23 release Previous Rx's ?Medication ?Instructions ?Recorded cephalexin 500 mg capsule 500 mg PO BID 7 days #14 caps 04/07/23 ibuprofen 800 mg tablet 800 mg PO Q8H PRN pain #20 tabs 04/12/23 Allergies Allergy/AdvReac Type Severity Reaction Status Date / Time No Known Allergies Allergy Verified 04/14/24 10:47 [No Known Allergies*] Review of Systems 2 Review of Systems: Pertinent positives and negatives as stated in HPI [facility] Past Medical History Source: nursing notes reviewed Medical History GERD (gastroesophageal reflux disease) Surgical History H/O endoscopy H/O colonoscopy History of left inguinal hernia repair (12/14/19) Social History Social History Alcohol intake: current Alcohol intake frequency: holidays/special occasions only Patient Tobacco Use Status: Never used Tobacco Advance Directives: No Advance Directives Information Provided: No Physical Exam 2 Vital Signs: Vital Signs: Last Vital Signs Temp 99.5 F 04/14/24 12:00 Pulse 85 04/14/24 11:40 Resp 18 04/14/24 10:44 BP 135/75 04/14/24 11:40 Pulse Ox 98 04/14/24 10:44 O2 Del Method Room Air 04/14/24 10:44 BMI result Body Mass Index 27.3 VITAL SIGNS: Reviewed. GENERAL: Well developed, well nourished, in no acute distress. HEAD: Normocephalic/atraumatic EYES: PERRLA, EOMI EARS: Ext canals without abnormality NOSE: Nares patent bilateral OROPHARYNX: no oral lesions noted, posterior pharynx clear NECK: Supple, no adenopathy LUNGS: Normal breath sounds. No adventitious sounds or accessory muscle use. SpO2<98> CARDIOVASCULAR: Regular rate and rhythm without noted murmurs ABDOMEN: Soft, non-tender, non-distended with bowel sounds. MUSCULOSKELETAL: No tenderness, deformities, or effusions noted on gross inspection. EXTREMITIES: No cyanosis, clubbing or edema. SKIN: Inspection of the skin reveals no rashes NEUROLOGIC: Alert and oriented x 4. Strength and sensation to light touch were grossly intact x 4. Course Course Course Narrative: This is an RME: Additional HPI, ROS, PE not included below will be deferred to primary provider. RME assessment and note performed by: Sarai Rey PA-C This is a 63-year-old male, with no known medical problems, who presents emergency department with complaints of syncopal episode which occurred while at work today. Patient states that over the last several days he has been sick with a head cold. He admits that he did not sleep well last night. While at work today he went to get a small snacks, and felt lightheaded, and felt his head tilt back, coworkers stated that his eyes rolled back, states that the syncopal episode lasted for several seconds. No head strike. He is not on blood thinners. No chest pain or shortness for breath. He does endorse some nausea. Plan: EKG, labs, viral swabs, further ER evaluation needed. Medical Decision Making Medical Decision Making MDM Narrative: 63-year-old male with history and clinical presentation, DD DX: Near- syncope/syncope and will rule out infection/volume status/electrolyte/anemia/arrhythmia. 1053: Normal sinus rhythm, right bundle branch block at baseline, no STEMI, WI/QTC are within normal limits. I reviewed and interpreted all investigations there is no evidence of infectious leukocytosis, anemia, but there is noted thrombocytopenia. There is no demonstrate DONALD/electrolyte or liver enzyme derangements. I sensitivity troponin is detectable however there are no acute ischemic changes EKG. Chest x-ray on my interpretation is negative for infiltrate or venous congestion and viral testing is positive for COVID-19. Orthostatics are negative. Overall, my interpretation is that patient has had poor p.o. intake in combination with feeling unwell and likely secondary to COVID-19 and he is otherwise discharged with near syncope due to poor p.o. intake and viral illness. Differential Diagnosis Differential Diagnoses: The differential diagnosis associated with the presentation includes See above Admission/Observation Consideration of admission/observation: Escalation of care including admission/observation considered Does not meet inpatient level of care Lab Data MDM Lab Attestation statement: I reviewed the patient's lab results. Please see above 04/14/24 11:03 04/14/24 11:03 Labs: Lab Results 04/14/24 04/14/24 Range/Units 10:59 11:03 WBC 2.8 L (4.8-10.8) X10*3/uL RBC 4.66 (4.60-5.80) X10*6/uL Hgb 14.8 (14.0-18.0) g/dl Hct 43.2 (42.0-52.0) % MCV 92.7 (80.0-98.0) fL MCH 31.8 (27.0-33.0) pg MCHC 34.3 (31.0-36.0) g/dl RDW 11.9 (11.0-16.0) % Plt Count 153 L D (160-400) X10*3/uL MPV 9.3 L (9.4-12.4) fL Immature Gran % (Auto) 0.4 (0.0-0.4) % Neut % (Auto) 64.7 (45-73) % Lymph % (Auto) 23.8 (20-40) % Gregg % (Auto) 10.3 (2-11) % Eos % (Auto) 0.4 (0-4) % Baso % (Auto) 0.4 (0-2) % Lymph # (Auto) 0.7 L (1.2-4.9) X10*3/uL [place]gg # (Auto) 0.3 (0.1-1.2) X10*3/uL Eos # (Auto) 0.0 (0.0-0.4) X10*3/uL Baso # (Auto) 0.0 (0.0-0.2) X10*3/uL Abs Immat Gran (auto) 0.01 (0.00-0.03) X10*3/uL Absolute Neuts (auto) 1.8 L (2.0-8.3) x10*3/uL Absolute Nucleated RBC 0.000 (0.0-0.012) X10*3/uL Nucleated RBC % (auto) 0.0 (0.0-0.2) /100WBC PT 12.7 H (10.9-12.4) SEC INR 1.1 (0.9-1.1) Sodium 135 (135-145) mmol/L Potassium 3.3 (3.3-5.1) mmol/L Chloride 103 (96-108) mmol/L Carbon Dioxide 23 (22-29) mmol/L Anion Gap 12 (12-20) BUN 13 (9-16) mg/dL Creatinine 0.97 (0.5-1.4) mg/dL Estim Creat Clear Calc 79.4 Estimated GFR > 60 Random Glucose 167 H (60-115) mg/dL Calcium 8.4 D (8.4-10.2) mg/dL Magnesium 2.1 (1.6-2.6) mg/dL Total Bilirubin 0.5 (0.0-1.0) mg/dL AST 35 (5-37) U/L ALT 27 (0-40) U/L Alkaline Phosphatase 98 (39-117) U/L Troponin I High Sens 3.3 (<3.5-35.0) ng/L Total Protein 6.8 (6.5-8.0) g/dL Albumin 4.0 (3.5-5.0) g/dL Lipase 27 (8-78) U/L Influenza Type A (PCR) NEGATIVE (Negative) Influenza Type B (PCR) NEGATIVE (Negative) RSV RNA Qual (PCR) NEGATIVE (Negative) SARS-CoV-2 RNA (RT-PCR) POSITIVE A (Negative) Independent Interpretation I performed an independent interpretation of an: EKG and Plain X-Ray Interpretation: See above Radiology Impression Discussion of test interpretation with radiology: I have reviewed the radiologist's reading. Radiologist Impression: See above External Record Review External record reviewed: Prior outpatient radiology and Outside ED record Chronic Conditions Patient?s care impacted by: Hypertension Discharge Plan Discharge Clinical Impression: Vasovagal near syncope, Acute viral syndrome, Lab test positive for detection of COVID-19 virus Patient Disposition: Home, Self-Care Instructions: Near Syncope (ED), Viral Syndrome (ED), COVID-19 (Coronavirus Disease 2019) (ED) Additional Instructions: You need to take yvoz-lie-bqnamtk Tylenol/ibuprofen as needed for headaches, body aches or temperatures greater than 100.4. You need to continue to drink plenty of fluids as you are likely behind. You were diagnosed with COVID-19 today but otherwise your workup was reassuring. Follow-up with your primary care doctor within a week and do not hesitate to return to the emergency room for any worsening of symptoms. Prescriptions: No Action ibuprofen 800 mg tablet 800 mg PO Q8H PRN (Reason: pain) Qty: 20 0RF cephalexin 500 mg capsule 500 mg PO BID 7 Days Qty: 14 0RF omeprazole 10 mg capsule,delayed release(DR/EC) 10 mg PO DAILY PRN (Reason: Gastric Reflux) Referrals: Chencho Vyas MD [Primary Care Provider] - Print Language: Jordanian
[2024-04-14 11:09] LABS: MANUAL DIFF FLAG NO
[2024-04-14 11:11] LABS: Basophils Percent Auto 0.4 % (0-2); Eosinophils Percent Auto 0.4 % (0-4); Hematocrit 43.2 % (42.0-52.0); Hemoglobin 14.8 g/dl (14.0-18.0); Imm Gran Abs Auto 0.01 X10*3/uL (0.00-0.03); Imm Gran Pct Auto 0.4 % (0.0-0.4); Lymphocytes Absolute Auto 0.7 X10*3/uL (1.2-4.9); Lymphocytes Percent Auto 23.8 % (20-40); Mean Corpuscular HGB Conc 34.3 g/dl (31.0-36.0); Mean Corpuscular Hemoglobin 31.8 pg (27.0-33.0); Mean Corpuscular Volume 92.7 fL (80.0-98.0); Mean Platelet Volume 9.3 fL (9.4-12.4); Monocytes Absolute Auto 0.3 X10*3/uL (0.1-1.2); Monocytes Percent Auto 10.3 % (2-11); Neutrophils Absolute Auto 1.8 x10*3/uL (2.0-8.3); Neutrophils Percent Auto 64.7 % (45-73); Platelet Count 153 X10*3/uL (160-400); Red Blood Count 4.66 X10*6/uL (4.60-5.80); Red Cell Distribution Width 11.9 % (11.0-16.0); White Blood Count 2.8 X10*3/uL (4.8-10.8)
[2024-04-14 11:20] LABS: INTERNATIONAL NORM RATIO 1.1 (0.9-1.1); Prothrombin Time 12.7 SEC (10.9-12.4)
[2024-04-14 11:24] LABS: Anion Gap 12 (12-20); Aspartate Amino Transferase 35 U/L (5-37); Bilirubin Total 0.5 mg/dL (0.0-1.0); Blood Urea Nitrogen 13 mg/dL (9-16); Calcium 8.4 mg/dL (8.4-10.2); Carbon Dioxide 23 mmol/L (22-29); Chloride 103 mmol/L (96-108); Creatinine Clr Calc Pharmacy 79.4; Estimated Glomerular Filt Rate > 60; Glucose Random 167 mg/dL (60-115); Lipase 27 U/L (8-78); Magnesium 2.1 mg/dL (1.6-2.6); Potassium 3.3 mmol/L (3.3-5.1); Sodium 135 mmol/L (135-145); Total Protein 6.8 g/dL (6.5-8.0)
[2024-04-14 11:30] LABS: Troponin-I High Sensitivity 3.3 ng/L (<3.5-35.0)
[2024-04-14 11:38] VITALS: BP 134/70; PULSE 68
[2024-04-14 11:39] VITALS: BP 138/69; PULSE 84
[2024-04-14 11:40] VITALS: BP 135/75; PULSE 85
[2024-04-14 11:42] LABS: Alkaline Phosphatase 98 U/L (39-117)
[2024-04-14 11:48] LABS: Influenza A PCR NEGATIVE (Negative); Influenza B PCR NEGATIVE (Negative); Resp Syncy Virus RNA Qual PCR NEGATIVE (Negative); SARS COV2 PCR INHOUSE POSITIVE (Negative)
[2024-04-14 11:58] LABS: Alanine Aminotransferase 27 U/L (0-40)
[2024-04-14 12:00] VITALS: BP 135/75; PULSE 85; RESP 18; TEMP 37.5; O2SAT 97
[2024-04-14] MEDS: Acetaminophen 325 MG TABLET 975 MG PO (12:45)
[2024-04-14] MEDS: Ibuprofen 400 MG TABLET PO (12:45)
[2024-04-14 13:02] VITALS: BP 135/75; PULSE 85; RESP 18; TEMP 37.5; O2SAT 97
== END 2024-04-14 13:02 | disposition home or self-care (01) ==
PROVIDERS: Physician Assistant Medical; Emergency Provider Student in an Organized Health Care Education/Training Program; PCP Internal Medicine
DX: U07.1 COVID-19 (principal); B34.9 Viral infection, unspecified; R55 Syncope and collapse; R07.89 Other chest pain; I45.10 Unspecified right bundle-branch block; Z79.899 Other long term (current) drug therapy
CPT/HCPCS: 0241U; 71046; 80053; 83690; 83735; 84484; 85025; 85610; 93005; 99283; 99284

== ENCOUNTER → 2024-04-14 10:49 | Outpatient (BNV) | payer BC, SELFPAY | PROVIDERS: Emergency Provider Student in an Organized Health Care Education/Training Program; PCP Internal Medicine; Visit Provider Internal Medicine Cardiovascular Disease | DX: R07.9 Chest pain, unspecified (principal); I45.10 Unspecified right bundle-branch block; R94.31 Abnormal electrocardiogram [ECG] [EKG] | CPT/HCPCS: 93010 ==

== ENCOUNTER → 2024-04-14 11:29 | Outpatient (BNV) | payer BC, SELFPAY | PROVIDERS: Emergency Provider Student in an Organized Health Care Education/Training Program; PCP Internal Medicine; Visit Provider Radiology Diagnostic Radiology | DX: R06.02 Shortness of breath (principal); R05.9 Cough, unspecified | CPT/HCPCS: 71046 ==

== ENCOUNTER 2024-05-01 11:13 | Outpatient (REF) | payer BC, SELFPAY ==
[2024-05-01 11:15] LABS: MANUAL DIFF FLAG NO
--- OUTSIDE RECORDS SUMMARY | 2024-05-01 11:18 | XMS_ITS ---
Author Organization Chencho Vyas MD Address [address] [place] [phone] Care Team Providers Care Solid State Tester Name Role Phone Chencho Vyas Primary Care Provider REASON FOR VISIT 2 week repeat CBC with diff Encounters Encounter Location Date Provider Diagnosis Chencho Vyas MD [address] [place] [id number] 05/01/2024 Chencho Vyas Lymphocytosis D72.82 0 ASSESSMENTS Encounter Date Diagnosis Assessment Notes Treatment Notes Treatment Clinical Notes 05/01/2024 Lymphocytosis (ICD-1 0 - D72.820) PLAN OF TREATMENT Pending Test Test Name Order Date Complete Blood Count Auto Diff Next Appt Details Provider Name:Chencho Schilling ieedson, 09/28/2024 07:15:00 AM, [address] [place] [address], [address], [phone], Provider Name:Chencho garay, 10/05/2024 10:30:00 AM, [address] [place] [address], [address], [phone],
--- OUTSIDE RECORDS SUMMARY | 2024-05-01 11:18 | XMS_ITS ---
Author Organization Chencho Vyas MD Address [address] [place] [phone] Care Team Providers Care Care Partner Name Role Phone Chencho Vyas Primary Care Provider ALLERGIES No Known Allergies REASON FOR VISIT 6 month MEDICATIONS Medication SIG (Take, Route, Frequency, Duration) [...] Once a day for 30 day(s) Not-Taking PROBLEMS Problem Type ICD Code Onset Dates Problem Status W/U Status Risk SNOMED Code Notes Problem Bergman's esophagus without dysplasia (K22.70) Active confirmed [id number] VITAL SIGNS BMI 27.16 kg/m2 04/02/2024 Blood pressure systolic 154 mm Hg 04/02/20 24 Blood pressure diastolic 82 mm Hg 024 Height 70.5 in 04/02/2024 Weight 192 lbs 04/02/2024 Encounters Encounter Location Date Provider Diagnosis Chencho Vyas MD [address] [place] [id number] 04/02/2024 Chencho Vyas Hypercholesterolemia E78.00 ; Benign essential hypertension I10 ; Bergman's esophagus without dysplasia K22.70 and Prediabetes R73.09 ASSESSMENTS Encounter Date Diagnosis Assessment Notes Treatment Notes Treatment Clinical Notes 04/02/2024 Hypercholesterolemia (ICD-10 - E78.00) just a little high. advised diet, will continue to monitor 04/02/2024 Benign essential hypertension (ICD-10 - I10) running a little high today, will continue to monitor 04/02/2024 Bergman's esophagus without dysplasia (ICD-10 - K22.70) remain on omeprazole 04/02/2024 Prediabetes (ICD-10 - R73.09) stable, no need for medication at this time PLAN OF TREATMENT Medication Medication Name Sig Start Date Stop Date Notes Omeprazole 20 MG 1 capsule Orally Once a day 11/04/2018 Treatment Notes Assessment Notes Hypercholesterolemia just a little high. advised diet, will continue to monitor Benign essential hypertension running a little high today, will continue to monitor Bergman's esophagus without dysplasia re main on omeprazole Prediabetes stable, no need for medication at this time Next Appt Details Provider Name:Chencho garay, 09/28/2024 07:15:00 AM, [address] [place] [address], Suite [facility], [place], [place], [phone], Provider Name:Chencho garay, 10/05/2024 10:30:00 AM, [address] [place] [address], [address] [facility], [place], [place], [phone], Progress Notes * Examination Category Sub-Category Detail Notes General Examination GENERAL APPEARANCE: alert, w ell hydrated, in no distress , male HEAD: normocephalic HEART: no murmurs, rubs, ga llops , regular rate and rhythm LUNGS: no wheezes, rales, r honchi , good air movement , clear to auscultation bilaterally
--- OUTSIDE RECORDS SUMMARY | 2024-05-01 11:19 | XMS_ITS ---
Author Organization Chencho Vyas MD Address [address] [place], [place] [id number] Care Team Providers Care Corporate Communications Specialist Name Role Phone Chencho Vyas Primary Care Provider RESULTS Component Value Reference Range Notes Liver Panel Reviewed date:03/27/2024 03:00:10 PM Interpretation: Performing Lab:[address] [address] Notes/Report: Bilirubin Total 1.3 0.0-1.0 mg/dL Bilirubin Direct 0.4 0.0-0.5 mg/dL Aspartate Amino Transferase 33 5-37 U/L Alanine Aminotransferase 29 0-40 U/L Total Protein 7.0 6.5-8.0 g/dL Albumin Level 4.2 3.5-5.0 g/dL Alkaline Phosphatase 76 39-117 U/L Glucose Fasting Reviewed date:03/27/2024 03:00:58 PM Interpretation: Performing Lab:[address] [address] Notes/Report: Glucose Fasting 92 60-99 mg/dL Lipid Panel with Reflex Reviewed date:03/30/2024 12:58:01 PM Interpretation: Performing Lab:[address] [address] Notes/Report: Triglycerides 96 <150 mg/dL Desirable Triglyceride: [...] A1c Reviewed date:03/27/2024 12:24:19 PM Interpretation: Performing Lab:[facility], [address] [place] [phone] Notes/Report: Hemoglobin A1c % 5.3 <6.0 % [...] average glucose, using the formula of the C8V-Vgujuth Average Glucose study (ADAG), Diabetes Care, Vol.31,#8, Nov. 2007 REASON FOR VISIT fasting lipids Encounters Encounter Location Date Provider Diagnosis Chencho Vyas MD [address] [place] [address] [place] [phone] 03/27/2024 Chencho Vyas Prediabetes R73.09 a nd Hypercholesterolemia E78.00 ASSESSMENTS Encounter Date Diagnosis Assessment Notes Treatment Notes Treatment Clinical Notes 03/27/2024 Prediabetes (ICD-10 - R73.09) 03/27/2024 Hypercholesterolemia (ICD-10 - E78.00) PLAN OF TREATMENT Next Appt Details Provider Name:Chencho garay, 09/28/2024 07:15:00 AM, [address] [place] [address], [address], [place], [id number], Provider Name:Chencho garay, 10/05/2024 10:30:00 AM, [address] [facility], [address], [place], [phone],
--- OUTSIDE RECORDS SUMMARY | 2024-05-01 11:19 | XMS_ITS | Patient Health Record ---
Author Organization Chencho Vyas MD Address [address] [place], [place] [id number] Care Team Providers Care Software Test Developer Name Role Phone Chencho Vyas Primary Care Provider [phone] ALLERGIES No Known Allergies RESULTS Component Value Reference Range Notes Complete Blood Count Auto Di ff Reviewed date:09/20/2023 02:03:07 PM Interpretation: Performing Lab:[facility], [address] [place] [phone] Notes/Report: White Blood Count 5.7 4.8-10.8 X10*3/uL [...] NRBC Abs Auto 0.000 0.0-0.012 X10*3/uL Comprehensive [place]. Panel Fa st Reviewed date:09/20/2023 02:03:25 PM Interpretation: Performing Lab:[address] [address] Notes/Report: Sodium 141 135-145 mmol/L Potassium 4.0 3.3-5.1 mmol/L Chloride 104 96-108 mmol/L Carbon Dioxide 27 22-29 mmol/L Anion Gap 14 12-20 Blood Urea Nitrogen 14 9-16 mg/dL Creatinine 0.85 0.5-1.4 mg/dL Estimated Glomerular Filt Rate > 60 NOTE: For -Australian individuals, multiply the result by 1.210. Chronic [...] Panel Reviewed date:09/20/2023 12:50:28 PM Interpretation: Performing Lab:[address] [address] Notes/Report: Triglycerides 109 <150 mg/dL Desirable Triglyceride: [...] (Free>4and<10) Reviewed date:09/22/2023 06:11:55 PM Interpretation: Performing Lab:[address] [address] Notes/Report: PSA,Total (Free>4and<10) 0.48 0.00-4.00 ng/mL A [...] Random Reviewed date:09/20/2023 12:44:27 PM Interpretation: Performing Lab:[address] [phone] Notes/Report: Creatinine Urine 93.27 Microalbumin Urine < 5.0 Microalbum/Creatinine Ratio Ur TNP <30 ug/mg cr Unable to calculate albumin/creatinine ratio due to low microalbumin or creatinine result. Hemoglobin A1c Reviewed date:09/20/2023 12:36:12 PM Interpretation: Performing Lab:[facility], [address] [place] [phone] Notes/Report: Hemoglobin A1c % 5.2 <6.0 % [...] average glucose, using the formula of the R2B-Pfwvdkr Average Glucose study (ADAG), Diabetes Care, Vol.31,#8, 2007 UA ClnCatch+Micro w/rflx Cul t Reviewed date:09/20/2023 02:04:24 PM Interpretation: Performing Lab:[facility], [address] [place] [phone] Notes/Report: Urine, Clean Catch Color Urine Yellow Appearance Urine Clear PH 7.5 5.0-9.0 Glucose Urine UA Negative Negative mg/dL Urine Blood Negative Negative Specific [place] - Urine 1.015 1.005-1.025 Urine Protein Negative [...] Gold Reviewed date:03/27/2024 12:24:37 PM Interpretation: Performing Lab:[facility], [address] [place] [phone] Notes/Report: Hold Gold See Note Specimen held untested for 24 hours; Call to request Chemistry testing. Liver Panel Reviewed date:03/27/2024 03:00:10 PM Interpretation: Performing Lab:[facility], [address] [place] [phone] Notes/Report: Bilirubin Total 1.3 0.0-1.0 mg/dL Bilirubin Direct 0.4 0.0-0.5 mg/dL Aspartate Amino Transferase 33 5-37 U/L Alanine Aminotransferase 29 0-40 U/L Total Protein 7.0 6.5-8.0 g/dL Albumin Level 4.2 3.5-5.0 g/dL Alkaline Phosphatase 76 39-117 U/L Glucose Fasting Reviewed date:03/27/2024 03:00:58 PM Interpretation: Performing Lab:[facility], [address] [place] [phone] Notes/Report: Glucose Fasting 92 60-99 mg/dL Lipid Panel with Reflex Reviewed date:03/30/2024 12:58:01 PM Interpretation: Performing Lab:[facility], [address] [place] [phone] Notes/Report: Triglycerides 96 <150 mg/dL Desirable Triglyceride: [...] A1c Reviewed date:03/27/2024 12:24:19 PM Interpretation: Performing Lab:[address] [phone] Notes/Report: Hemoglobin A1c % 5.3 <6.0 % [...] average glucose, using the formula of the S8C-Yzatdrq Average Glucose study (ADAG), Diabetes Care, Vol.31,#8, Nov. 2007 Complete Blood Count Auto Di ff Reviewed date:05/01/2024 10:19:41 AM Interpretation:see back 05-01-24 Performing Lab:[facility], [address] [place] [phone] Notes/Report: White Blood Count 2.8 4.8-10.8 X10*3/uL Red Blood Count 4.66 4.60-5.80 X10*6/uL Hemoglobin 14.8 14.0-18.0 g/dl Hematocrit 43.2 42.0-52.0 % Mean Corpuscular Volume 92.7 80.0-98.0 fL Mean Corpuscular Hemoglobin 31.8 27.0-33.0 pg Mean Corpuscular HGB Conc 34.3 31.0-36.0 g/dl Red Cell Distribution Width 11.9 11.0-16.0 % Platelet Count 153 160-400 X10*3/uL Mean Platelet Volume 9.3 9.4-12.4 fL Neutrophils Percent Auto 64.7 45-73 % Imm Gran Pct Auto 0.4 0.0-0.4 % Lymphocytes Percent Auto 23.8 20-40 % Monocytes Percent Auto 10.3 2-11 % Eosinophils Percent Auto 0.4 0-4 % Basophils Percent Auto 0.4 0-2 % NRBC Pct Auto 0.0 0.0-0.2 /100WBC Neutrophils Absolute Auto 1.8 2.0-8.3 x10*3/u L Imm Gran Abs Auto 0.01 0.00-0.03 X10*3/uL Lymphocytes Absolute Auto 0.7 1.2-4.9 X10*3/u L Monocytes Absolute Auto 0.3 0.1-1.2 X10*3/uL Eosinophils Absolute Auto 0.0 0.0-0.4 X10*3/u L Basophils Absolute Auto 0.0 0.0-0.2 X10*3/uL NRBC Abs Auto 0.000 0.0-0.012 X10*3/uL Prothrombin Time INR Reviewed date:04/14/2024 04:20:07 PM Interpretation: Performing Lab:[facility], [address] [place] [phone] Notes/Report: Prothrombin Time 12.7 10.9-12.4 SEC INTERNATIONAL NORM RATIO 1.1 0.9-1.1 INTERNATIONAL NORMALIZED RATIO (INR) REFERENCE RANGES Reference Range For patients not on anticoagulant therapy: 0.9 - 1.1 INR ranges for oral anticoagulant therapy: For prevention and treatment of venous thrombosis and pulmonary embolism: 2.0 - 3.0 For acute myocardial infarction with aspirin therapy: 2.0 - 3.0 For acute myocardial infarction without aspirin therapy: 3.0 - 4.0 For patients with mechanical prosthetic heart valves: 2.5 - 3.5 Comprehensive Met. Panel Reviewed date:04/16/2024 12:33:21 PM Interpretation: Performing Lab:[facility], [address] [place] [phone] Notes/Report: Sodium 135 135-145 mmol/L Potassium 3.3 3.3-5.1 mmol/L Chloride 103 96-108 mmol/L Carbon Dioxide 23 22-29 mmol/L Anion Gap 12 12-20 Blood Urea Nitrogen 13 9-16 mg/dL Creatinine 0.97 0.5-1.4 mg/dL Creatinine Clr Calc Pharmacy 79.4 eGFR (calculated from the MDRD study equation) and eCrCl (calculated from the Cockcroft-Gault equation) are based on different parameters and may not yield comparable results. If eCrCl result is absurd, please check patient's height/weight. Estimated Glomerular Filt Rate > 60 Chronic Kidney Disease: Estimated GFR < 60 mL/min/1.73m2 Severe Kidney Disease: Estimated GFR < 15 mL/min/1.73m2 Glucose Random 167 60-115 mg/dL Calcium 8.4 8.4-10.2 mg/dL Bilirubin Total 0.5 0.0-1.0 mg/dL Aspartate Amino Transferase 35 5-37 U/L Alanine Aminotransferase 27 0-40 U/L Total Protein 6.8 6.5-8.0 g/dL Albumin Level 4.0 3.5-5.0 g/dL Alkaline Phosphatase 98 39-117 U/L Magnesium Reviewed date:04/14/2024 04:14:56 PM Interpretation: Performing Lab:[address] [address] Notes/Report: Magnesium 2.1 1.6-2.6 mg/dL Troponin-I High Sensitivity Reviewed date:04/14/2024 04:19:58 PM Interpretation: Performing Lab:[address] [address] Notes/Report: Troponin-I High Sensitivity 3.3 <3.5-35.0 ng/ L The [place] high sensitivity Troponin-I results should be used in conjunction with other diagnostic information such as ECG, clinical observations and information, and patient symptoms to aid in the diagnosis of PA. Lipase Reviewed date:04/14/2024 04:19:06 PM Interpretation: Performing Lab:[address] [address] Notes/Report: Lipase 27 8-78 U/L SARS-CoV2/FLU/RSV Reviewed date:04/14/2024 04:18:49 PM Interpretation: Performing Lab:[address] [address] Notes/Report: Influenza A PCR NEGATIVE Negative Influenza B PCR NEGATIVE Negative Resp Syncy Virus RNA Qual PCR NEGATIVE Negative SARS COV2 PCR INHOUSE POSITIVE Negative All test results must be correlated with clinical findings. Negative results do not preclude SARS-CoV2, influenza A virus, influenza B virus and/or RSV infection and should not be used as the sole basis for treatment or other patient management decisions. Negative results must be combined with clinical observations, patient history, and epidemiological information. This test has not been evaluated for monitoring treatment of infection. This test has been authorized by the FDA under an Emergency Use Authorization (EUA) for use by authorized laboratories. Testing performed on the Exosect GeneXpert utilizing real-time RT-PCR. All SARS CoV2 and positive influenza A/B results are reported to [facility]. XR chest 2V Reviewed date:04/14/2024 04:15:26 PM Interpretation: Performing Lab: Notes/Report: [address] [place] [address] XRay Report Signed Patient: Lio Conti MR#: [id number] 64 : 1960 Acct:[id number] Age/Sex: 63 / M ADM Date: 04/14/24 Loc: HO.ED Attending Dr: Ordering Physician: Rubina Nuno MD Date of Service: 04/14/24 Procedure(s): XR chest 2V Accession Number(s): [id number] cc: Chencho Vyas MD; Rubina Nuno MD EXAMINATION: XR CHEST CLINICAL INFORMATION: cough, SOB COMPARISON: 04/07/2023. TECHNIQUE: 2 views of the chest were obtained. FINDINGS: Elevated right hemidiaphragm. The cardiac, hilar, and mediastinal contours are normal. The lungs are clear bilaterally. There is no pneumothorax or pleural effusion. There is no focal osseous or soft tissue abnormality. XR/XR chest 2V IMPRESSION: No active pulmonary disease. No interval change. Electronically signed by: Tin Strickland MD 04/14/2024 12:19 PM [facility] Dictated By: Tin Strickland MD Signed By: <Electronically signed by Tin Strickland MD in OV> 04/14/24 1219 DD/ 1129 TD/TT: 04/14/24 1154 Registered Nurse Ambulatory: REASON FOR REFERRAL No Information MEDICATIONS Medication [...] Notes Problem Lymphocytosis (D72.820) Active confirmed Lymphocytosis (23274001) Problem Prostatism (N40.0) Active confirmed 114 41584 Problem Bergman's esophagus without dysplasia (K22.70) Active confirmed 192259905 Problem Prediabetes (R73.09) Active confirmed P rediabetes (113977909) Problem Benign essential hypertension (I10) Active confirmed Benign essential hypertension (5093092) Problem Stress (F43.9) Active confirmed 7776982 0 Problem Right bundle branch block (I45.10) Active confirmed Right bundle branch block (14506903) Problem Hypercholesterolemia (E78.00) Active confirmed 40596466 Problem Left inguinal hernia (K40.90) Active confirmed 829298696 Problem Indigestion (K30) Active confirmed 1620 48791 Problem Gastric reflux (K21.9) Active confirmed 857699401 VITAL SIGNS Blood pressure diastolic 82 mm Hg 04/02/2024 Height 70.5 in 04/02/2024 Blood pressure systolic 154 mm Hg 04/02/2024 Weight 192 lbs 04/02/2024 BMI 27.16 kg/m2 04/02/2024 Encounters Encounter Location Date Provider Diagnosis Chencho Vyas MD [address] [place] [id number] 09/27/2023 Chencho Vyas Hypercholesterolemia E78.00 ; Annual physical exam Z00.00 ; Benign essential hypertension I10 ; Prostatism N40.0 ; Prediabetes R73.09 ; Lymphocytosis D72.820 ; Gastric reflux K21.9 ; Colon cancer screening Z12.11 and Depression screening Z13.31 Chencho Vyas MD [address] [place] [id number] 09/20/2023 Chencho Vyas Annual physical exam Z00.00 ; Prediabetes R73.09 ; Hypercholesterolemia E78.00 ; Prostatism N40.0 ; Lymphocytosis D72.820 and Benign essential hypertension I10 Chencho Vyas MD [address] [place] [id number] 03/27/2024 Chencho Vyas Prediabetes R73.09 a nd Hypercholesterolemia E78.00 Chencho Vyas MD [address] [place] [id number] 12/30/2023 Chencho Vyas Encounter for immuni zation Z23 Chencho Vyas MD [address] [place] [id number] 05/01/2024 Chencho Vyas Lymphocytosis D72.82 0 [address] Vyas [address] [place] [id number] 04/02/2024 Chencho Vyas Hypercholesterolemia E78.00 ; Benign essential hypertension I10 ; Bergman's esophagus without dysplasia K22.70 and Prediabetes R73.09 ASSESSMENTS Encounter Date Diagnosis Assessment Notes Treatment Notes Treatment Clinical Notes 09/27/2023 Annual physical exam (ICD-10 - Z00.00) labs reviewed and discussed with patient 09/27/2023 Hypercholesterolemia (ICD-10 - E78.00) going back on christina, will continue to monitor 09/20/2023 Annual physical exam (ICD-10 - Z00.00) 09/20/2023 Prediabetes (ICD-10 - R73.09) 03/27/2024 Prediabetes (ICD-10 - R73.09) 03/27/2024 Hypercholesterolemia (ICD-10 - E78.00) 12/30/2023 Encounter for immuni zation (ICD-10 - Z23) 05/01/2024 Lymphocytosis (ICD-1 0 - D72.820) 04/02/2024 Benign essential hypertension (ICD-10 - I10) [...] Date Electrocardiogram (EKG) 03/12/2011 Electrocardiogram (EKG) 08/15/2017 Complete Blood Count Auto Diff 5 Next Appt Details Provider Name:Chencho garay, 09/28/2024 07:15:00 AM, [address] [place] [address], [address], [place], [place], [phone], Provider Name:Chencho camposr, 10/05/2024 10:30:00 AM, [address] [facility], [address], [place], [place], [id number], Insurance Providers Payer Name Payer Address Payer Phone Subscriber Number Group Number Insured Name Patient Relationship to Insured Coverage Start Date Coverage End Date [employer] [facility] [address] [place], [place] [id number] [phone] [id number] Lio Conti Self - patient is the insured MEDICAL (GENERAL) HISTORY Medical History History ICD Code colonoscopy 2009 due in 10 y ears going to get hernia fixed qnd then get colonoscopy:12/12 colonoscopy repeat 10 years Lymphocytosis D72.820 Lymphocytosis Surgical History Surgery Date(Month/Year) Repair LT Inguinal Hernia w/o Mesh - Dr. Ford 09/2018
[2024-05-01 11:49] LABS: Basophils Absolute Auto 0.1 X10*3/uL (0.0-0.2); Basophils Percent Auto 1.1 % (0-2); Eosinophils Absolute Auto 0.2 X10*3/uL (0.0-0.4); Eosinophils Percent Auto 2.8 % (0-4); Hematocrit 43.6 % (42.0-52.0); Imm Gran Abs Auto 0.02 X10*3/uL (0.00-0.03); Imm Gran Pct Auto 0.3 % (0.0-0.4); Lymphocytes Percent Auto 49.7 % (20-40); Mean Corpuscular HGB Conc 34.4 g/dl (31.0-36.0); Mean Corpuscular Hemoglobin 32.1 pg (27.0-33.0); Mean Corpuscular Volume 93.4 fL (80.0-98.0); Mean Platelet Volume 9.4 fL (9.4-12.4); Monocytes Absolute Auto 0.8 X10*3/uL (0.1-1.2); Monocytes Percent Auto 13.3 % (2-11); Neutrophils Percent Auto 32.8 % (45-73); Platelet Count 397 X10*3/uL (160-400); Red Blood Count 4.67 X10*6/uL (4.60-5.80); Red Cell Distribution Width 12.2 % (11.0-16.0); White Blood Count 6.1 X10*3/uL (4.8-10.8)
== END 2024-05-01 11:14 | disposition home or self-care (01) ==
LOC: HO.LNP 11:13
PROVIDERS: Visit Provider Internal Medicine
DX: D72.820 Lymphocytosis (symptomatic) (principal)
CPT/HCPCS: 85025

== ENCOUNTER 2024-09-28 10:11 | Outpatient (REF) | payer BC, SELFPAY ==
[2024-09-28 10:14] LABS: MANUAL DIFF FLAG NO
[2024-09-28 10:27] LABS: Basophils Absolute Auto 0.1 X10*3/uL (0.0-0.2); Basophils Percent Auto 0.9 % (0-2); Eosinophils Absolute Auto 0.2 X10*3/uL (0.0-0.4); Hematocrit 45.5 % (42.0-52.0); Hemoglobin 15.5 g/dl (14.0-18.0); Imm Gran Abs Auto 0.01 X10*3/uL (0.00-0.03); Imm Gran Pct Auto 0.2 % (0.0-0.4); Mean Corpuscular HGB Conc 34.1 g/dl (31.0-36.0); Mean Corpuscular Hemoglobin 32.2 pg (27.0-33.0); Mean Corpuscular Volume 94.6 fL (80.0-98.0); Mean Platelet Volume 9.9 fL (9.4-12.4); Monocytes Absolute Auto 0.5 X10*3/uL (0.1-1.2); Monocytes Percent Auto 7.7 % (2-11); Neutrophils Absolute Auto 2.9 x10*3/uL (2.0-8.3); Neutrophils Percent Auto 43.2 % (45-73); Platelet Count 279 X10*3/uL (160-400); Red Blood Count 4.81 X10*6/uL (4.60-5.80); Red Cell Distribution Width 11.8 % (11.0-16.0); White Blood Count 6.6 X10*3/uL (4.8-10.8)
[2024-09-28 10:37] LABS: Estimated Average Glucose 105 mg/dL; Hemoglobin A1c % 5.3 % (<6.0)
[2024-09-28 10:44] LABS: Alanine Aminotransferase 24 U/L (0-40); Albumin Level 4.5 g/dL (3.5-5.0); Alkaline Phosphatase 73 U/L (39-117); Anion Gap 10 (12-20); Aspartate Amino Transferase 28 U/L (5-37); Bilirubin Total 1.5 mg/dL (0.0-1.0); Blood Urea Nitrogen 15 mg/dL (9-16); Calcium 9.2 mg/dL (8.4-10.2); Carbon Dioxide 30 mmol/L (22-29); Chloride 105 mmol/L (96-108); Cholesterol 248 mg/dL (<200); Estimated Glomerular Filt Rate > 60; Glucose Fasting 93 mg/dL (60-99); HDL Cholesterol 59 mg/dL (>40); LDL Cholesterol Calculated 160 mg/dL (<100); Potassium 4.3 mmol/L (3.3-5.1); Sodium 141 mmol/L (135-145); Total Protein 7.2 g/dL (6.5-8.0); Triglycerides 147 mg/dL (<150)
[2024-09-28 10:47] LABS: Appearance Urine Clear; Color Urine Dark Yellow; Glucose Urine UA Negative (Negative); Leukocyte Esterase Urine Negative (Negative); Nitrite Urine Negative (Negative); PH 7.5 (5.0-9.0); Urine Blood Negative (Negative); Urine Ketones Negative (Negative); Urine Protein Negative (Neg-Trace)
[2024-09-28 10:53] LABS: PSA,Total (Free>4and<10) 0.52 ng/mL (0.00-4.00)
[2024-09-28 10:55] LABS: Bacteria Urine None Seen (None Seen); Hyaline Casts Urine 0-2 /LPF (0-2); RBC Urine 0-2 /HPF (0-2); Squamous Epithelial Cell Urine 0-2 /HPF (0-2); WBC Urine 0-5 /HPF (0-5)
[2024-09-28 11:00] LABS: Creatinine Urine 129.95 mg/dL; Microalbumin Urine < 5.0 mg/L
--- OUTSIDE RECORDS SUMMARY | 2024-09-28 11:17 | XMS_ITS ---
Author Organization [facility] Address [address] [place] [phone] Care Team Providers Care Scientific Investigator Name Role Phone Lilliam MOTA, Chencho Primary Care Provider Juan Lock [phone] REASON FOR VISIT Omeprazole rejected Encounters Encounter Location Date Provider Diagnosis [facility] [address] [place] [phone] 04/23/2024 Juan Aguilar Plan Of Treatment No Information Progress Notes * ALEXY BANDAOB:1960 (63 yo M)Acc No.[id number]:04/23/2024 Patient:?CYNDY BANDA :1960???Age:63 Y???Sex:Male Address:[address] [place] [id number] * true * Date:? Generated for Johny hart/Hanane/eTransmitting on:?09/28/2024 11:17 AM EDT
== END 2024-09-28 10:12 | disposition home or self-care (01) ==
LOC: HO.LNP 10:11
PROVIDERS: Visit Provider Internal Medicine
DX: Z00.00 Encounter for general adult medical examination without abnormal findings (principal); Z12.5 Encounter for screening for malignant neoplasm of prostate; R73.09 Other abnormal glucose; D72.820 Lymphocytosis (symptomatic); I10 Essential (primary) hypertension
CPT/HCPCS: 80053; 80061; 81001; 82043; 82570; 83036; 84153; 85025

== ENCOUNTER 2024-10-05 10:58 | Outpatient (REF) | payer BC, SELFPAY ==
--- NOTE | ~2024-10-05 | XR_ITS ---
EXAMINATION: XR LUMBOSACRAL SPINE CLINICAL INFORMATION: BACK PAIN COMPARISON: None available. TECHNIQUE: Three views of the lumbosacral spine. FINDINGS: There are 5 nonrib-bearing lumbar segments. There is mild degenerative changes of the SI joints. There is sjkb-qo-dytzydqb atherosclerotic calcification in the abdominal aorta. T12-L1: There is mild disc space narrowing and vacuum phenomena with anterior osteophytes. L1-2: There is moderate disc space narrowing with vacuum phenomenon, endplate sclerosis, and osteophytes. L2-3: There is mild disc space narrowing and subtle retrolisthesis. There are endplate osteophytes and mild facet sclerosis. L3-4: There is mild disc space narrowing. There are endplate osteophytes. There is facet sclerosis and osteophytes. L4-5: There is grade 1 retrolisthesis. There is vacuum phenomenon and moderate disc space narrowing. There endplate osteophytes. There is facet sclerosis and osteophytes. L5-S1: There is moderate disc space narrowing, endplate sclerosis, and endplate osteophytes. There is also facet sclerosis with osteophytes. XR/XR lumbar spine 2-3V IMPRESSION: Moderate degenerative disc disease and facet osteoarthritis. Moderate abdominal aorta vascular calcification. Electronically signed by: Maximino Ramires MD 10/05/2024 11:33 AM EDT
--- OUTSIDE RECORDS SUMMARY | 2024-10-05 12:31 | XMS_ITS ---
Author Organization [facility] Address [address] [place] [id number] Care Team Providers Care Supervisor Compressed Yeast Name Role Phone Lilliam MOTA, Chencho Primary Care Provider Juan Lock [phone] REASON FOR VISIT Omeprazole rejected Encounters Encounter Location Date Provider Diagnosis [facility] [address] [place] [phone] 04/23/2024 Juan Aguilar Plan Of Treatment No Information Progress Notes * ALEXY BANDAOB:1960 (63 yo M)Acc No.[id number]:04/23/2024 Patient:?CYNDY BANDA :1960???Age:63 Y???Sex:Male Address:[address] [place] [id number] * true * Date:? Generated for Johny hart/Hanane/eTransmitting on:?10/05/2024 12:30 PM EDT
== END 2024-10-05 10:59 | disposition home or self-care (01) ==
LOC: HO.XRAY 10:58
PROVIDERS: PCP Internal Medicine; Visit Provider Internal Medicine
DX: M51.360 Other intervertebral disc degeneration, lumbar region with discogenic back pain only (principal); M47.816 Spondylosis without myelopathy or radiculopathy, lumbar region; I70.0 Atherosclerosis of aorta
CPT/HCPCS: 72100

== ENCOUNTER → 2024-10-05 11:04 | Outpatient (BNV) | payer BC, SELFPAY | PROVIDERS: PCP Internal Medicine; Visit Provider Radiology Diagnostic Radiology | DX: M51.360 Other intervertebral disc degeneration, lumbar region with discogenic back pain only (principal); M47.816 Spondylosis without myelopathy or radiculopathy, lumbar region; I70.0 Atherosclerosis of aorta | CPT/HCPCS: 72100 ==

== ENCOUNTER 2024-12-07 20:58 | Emergency (ER) | payer BC, SELFPAY ==
--- OUTSIDE RECORDS SUMMARY | 2024-10-19 04:32 | XMS_ITS ---
Author Organization Chencho Vyas MD Address [address] [place] [phone] Care Team Providers Care Newspaper Carriers Supervisor Name Role Phone Chencho Vyas Primary Care Provider REASON FOR VISIT wants a call back Encounters Encounter Location Date Provider Diagnosis Chencho Vyas MD 10 [facility] [address] [place] [phone] 10/19/2024 Chencho Vyas Plan Of Treatment Next Appt Details Provider Name:Chencho Schilling ier, 01/07/2025 07:30:00 AM, [address] [place] [address], [address] [place] [address], [phone], Provider Name:Chencho Schilling ier, 01/15/2025 10:15:00 AM, [address] [place] [address], [address], [phone], Provider Name:Chencho camposr, 04/06/2025 10:15:00 AM, [address] [place] [address], [address], [phone], Provider Name:Chencho garay, 10/05/2025 07:00:00 AM, [address], [address], [place], [place], [phone], Provider Name:Chencho Schilling ier, 10/12/2025 10:30:00 AM, [address], [address], [place], [place], [phone], Progress Notes * Syl BANDAOB:1960 (63 yo M)Acc No.[id number]:10/19/2024 Patient: Lio SOLOMON :1960 A ge:63 Y S ex:Male Address:[address] [place] [phone] * true * Date: Generated for Johny hart/Hanane/Angelicaitting on: 0 12/07/2024 09:29 PM EDT
--- NOTE | 2024-12-07 | ECG_ITS ---
Test Reason : palpatation Blood Pressure : */* mmHG Vent. Rate : 68 BPM Atrial Rate : 68 BPM P-R Int : 162 ms QRS Dur : 138 ms QT Int : 426 ms P-R-T Axes : 51 7 -6 degrees QTcB Int : 452 ms Sinus rhythm with frequent Premature ventricular complexes Right bundle branch block T wave abnormality, consider lateral ischemia Abnormal ECG When compared with ECG of 14-Apr-2024 10:53, Premature ventricular complexes are now Present T wave inversion less evident in Lateral leads Referred By: Generic ED Physician Electronically Signed By: DIMAS WALKER MD
--- NOTE | ~2024-12-07 | CT_ITS ---
CLINICAL HISTORY: numbness to face CT head without contrast Comparison: None provided Findings: No intra-axial mass, midline shift, hydrocephalus, or acute hemorrhage. Minimal atrophy-like change and white matter disease. The visualized paranasal sinuses and mastoid air cells are normal. The orbits are unremarkable. No skull fracture. IMPRESSION: 1. No acute intracranial findings. If patient continues to have persistent or worsening symptoms, MRI should be considered for further evaluation. 2. Additional chronic/nonacute findings as above. This document has been electronically signed by: Rio Storm MD on 12/07/2024 22:28:57
[2024-12-07 21:09] VITALS: BP 182/78; PULSE 55; RESP 17; TEMP 36.7; O2SAT 97; BMI 26.9
--- OUTSIDE RECORDS SUMMARY | 2024-12-07 21:29 | XMS_ITS | Patient Health Record ---
Author Organization [facility] Address [address] [place] [address] Care Team Providers Care Electronics Recycler Name Role Phone Chencho Vyas MD Primary Care Provider Juan Lock Unavailable [phone] Allergies No Known Allergies Reason For Referral No Information Medications Medication SIG (Take, Route, Fr equency, Duration) Notes Start Date End Date Status Omeprazole 20 MG TAKE 1 CAPSULE BY [facility] EVERY DAY FOR 90 DAYS for 90 Active Immunizations Vaccine Route Administration Date Status Comme nts Influenza Unknown 03/13/2022 Administered Social History Tobacco Use: Social History Observation Description Date Details (start date - stop date) Never Smoker NA - NA Tobacco Use/Smoking Question Answer Notes Patient is a nonsmoker Alcohol Screen Question Answer Notes Did you have a drink contain ing alcohol in the past year? Yes How often did you have a dri nk containing alcohol in the past year? 2 to 4 times a month (2 points) How many drinks did you have on a typical day when you were drinking in the past year? 1 or 2 drinks (0 point) How often did you have 6 or more drinks on one occasion in the past year? Never (0 point) Points 2 Interpretation Negative Section Notes: He had been living with and caring for his mother up until 2021 when she Problems Problem Type SNOMED Code ICD Code Onset Dates Problem Status W/U Status Risk Notes Problem Esophageal reflux (282580883) Esophageal reflux (K21.9) Active confirmed Problem 90635991 Heme + stool (R19.5) Active confirmed Problem Gastritis (0689175) Gastritis (K29.70) Active confirmed Problem Diverticulosis of colon (458098393) Diverticulosis of colon (K57.30) Active confirmed Problem 026704104 Gastroesophageal reflux disease, unspecified whether esophagitis present (K21.9) Active confirmed Encounters Encounter Location Date Provider Diagnosis [facility] [address] [place] [phone] 04/23/2024 Juan Aguilar [facility] [address] [place] [phone] 04/23/2024 Juan Aguilar [facility] [address] [place] [phone] 04/24/2024 Juan Aguilar Plan Of Treatment Future Test Test Name Order Date UPPER GI ENDOSCOPY 10/02/2022 COLONOSCOPY 10/02/2022 Insurance Providers Payer Name Payer Address Payer Phone Subscriber Number Group Number Insured Name Patient Relationship to Insured Coverage Start Date Coverage End Date [facility] [id number] [address] [place] [address] [id number] CYNDY BANDA Self - patient is the insured Medical (General) History Medical History History ICD Code GERD Colonoscopy 04/2009 with a hy perplastic polyp---told of needing a 10 year follow up Denies VT,DM,CVA,Lung disease,renal dise ase Surgical History Surgery Date(Month/Year) Left inguinal hernia surgery x 2 in 2018 and 2020--2020 was with a mesh--Dr. Ford. Has an appt with Dr. Bergman at [facility] for a 2nd opinion
--- NOTE | 2024-12-07 21:39 | ED_ITS ---
HPI - General Adult General Chief complaint: General Medical Stated complaint: heart skipping a beat; left side face swelling Time Seen by Provider: 12/07/24 23:47 Source: patient Mode of arrival: ambulatory Limitations: no limitations History of Present Illness ED Provider: Dr. Blanca Luis HPI narrative: Patient is a 64-year-old male with no significant past medical history presenting with palpitations and fatigue ongoing for the last 4 days or so. 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 Admits that he ?can not handle the heat as well as he used to?. Started to feel lightheaded but never passed out completely. [place] palpitations and slight shortness of breath. Denies associated chest pain. No reported fever, cough or cold-type symptoms, known sick contacts or travel. Denies lower extremity edema or pain. No numbness/tingling/weakness of the extremities. Had been feeling well prior to this. Related Data Home Medications ?Medication ?Instructions ?Recorded ?Confirmed omeprazole 10 mg capsule,delayed 10 mg PO DAILY PRN Ga stric Reflux 04/20/20 04/12/23 release Previous Rx's ?Medication ?Instructions ?Recorded cephalexin 500 mg capsule 500 mg PO BID 7 days #14 cap s 04/07/23 ibuprofen 800 mg tablet 800 mg PO Q8H PRN pain #20 t abs 04/12/23 Allergies Allergy/AdvReac Type Severity Reaction Status Date / Time No Known Allergies (No Known Allergy Verified 12/07/24 21:10 Allergies*) Review of Systems 2 Review of Systems: as per HPI, full review of systems performed and negative but for the above mentioned pertinent positives and negatives. [facility] Past Medical History Medical History GERD (gastroesophageal reflux disease) Surgical History H/O endoscopy H/O colonoscopy History of left inguinal hernia repair (12/14/19) Social History Social History Alcohol intake: current Alcohol intake frequency: holidays/special occasions only Patient Tobacco Use Status: Never used Tobacco Advance Directives: No Advance Directives Information Provided: No Do you have a plan to hurt others: No Plan Physical Exam ED Exam Exam: GENERAL: Chronically ill-appearing, conversant, no acute distress. SKIN: Normal skin color for ethnicity, warm, dry, no rashes noted. HEENT: Normocephalic, atraumatic, no stridor, posterior oropharynx nonerythematous, EOMI. NECK: Soft, supple, full ROM, midline structures nontender, no step-offs, no deformities, no lymphadenopathy. CHEST: Heart regular rate and rhythm, no murmurs, symmetric chest rise and fall. PULMONARY: Clear to auscultation bilaterally, no labored breathing, no wheezes/rhales/ rhonchi. ABDOMINAL: Soft, nondistended, nontender, positive bowel sounds in all quadrants. : Deferred. MUSCULOSKELETAL: Normal tone, full range of motion, no deformities, no peripheral edema. NEURO: Alert and oriented to person, CN II through XII intact, no focal neurologic deficits. PSYCHIATRIC: Flat affect, fluid speech, appropriate demeanor. Vital Signs: Vital Signs - 24 hr 12/07/24 21:09 12/07/24 23:10 12/08/24 02:16 Temperature 98.0 F 97.7 F 97.9 F Pulse Rate 55 60 59 Respiratory Rate 17 12 11 L Blood Pressure 182/78 H 166/92 H 161/80 H Pulse Oximetry 97 98 96 Oxygen Delivery Method Room Air Room Air Room Air BMI result Body Mass Index 26.9 Course Course Course Narrative: RME: 64-year-old male presents to the ED for feeling unwell with heart palpitation and tingling in left side of face this afternoon. Patient has spit this had been off and on for the past couple of months. NIH score is 0. Pain and hypertensive. Labs EKG ordered. Medical Decision Making Medical Decision Making MDM Narrative: Patient presenting with chief complaint of heart palpitations. Differential diagnosis includes heart palpitations, electrolyte abnormality, arrhythmia, ACS, thyroid dysfunction, substance use including stimulants such as caffeine, amphetamines, drug toxicity, among many others. Patient's workup today has been reassuring. No evidence of cardiac pathology, intracranial pathology or other acute process to suggest systemic disease. He is slightly dehydrated and I suspect he has had a little bit of heat stroke after working in a hot school without air conditioning in the extreme heat last week. Encouraged him to follow up with his primary care doctor and continue to check his blood pressures which are running sort of high today. Using shared decision making, plan for discharge home to follow-up with primary care and/or specialist.? Patient understands and agrees with plan for discharge.? Discharged home in stable condition. Differential Diagnosis Differential Diagnoses: The differential diagnosis associated with the presentation includes (as above) Admission/Observation Consideration of admission/observation: Escalation of care including admission/observation considered Lab Data MDM Lab Attestation statement: I reviewed the patient's lab results. 12/07/24 21:34 12/07/24 21:34 Labs: Lab Results 12/07/24 Range/Units 21:34 WBC 7.0 (4.8-10.8) X10*3/uL RBC 4.55 L (4.60-5.80) X10*6/uL Hgb 14.8 (14.0-18.0) g/dl Hct 41.5 L (42.0-52.0) % MCV 91.2 (80.0-98.0) fL MCH 32.5 (27.0-33.0) pg MCHC 35.7 (31.0-36.0) g/dl RDW 11.9 (11.0-16.0) % Plt Count 224 (160-400) X10*3/uL MPV 9.5 (9.4-12.4) fL Immature Gran % (Auto) 0.3 (0.0-0.4) % Neut % (Auto) 58.7 (45-73) % Lymph % (Auto) 31.5 (20-40) % Barnes % (Auto) 7.8 (2-11) % Eos % (Auto) 1.1 (0-4) % Baso % (Auto) 0.6 (0-2) % Lymph # (Auto) 2.2 (1.2-4.9) X10*3/uL Barnes # (Auto) 0.5 (0.1-1.2) X10*3/uL Eos # (Auto) 0.1 (0.0-0.4) X10*3/uL Baso # (Auto) 0.0 (0.0-0.2) X10*3/uL Abs Immat Gran (auto) 0.02 (0.00-0.03) X10*3/uL Absolute Neuts (auto) 4.1 (2.0-8.3) x10*3/uL Absolute Nucleated RBC 0.000 (0.0-0.012) X10*3/uL Nucleated RBC % (auto) 0.0 (0.0-0.2) /100WBC PT 12.0 (10.9-12.4) SEC INR 1.0 (0.9-1.1) APTT 31.8 (26.7-34.1) SEC Sodium 141 (135-145) mmol/L Potassium 3.9 (3.3-5.1) mmol/L Chloride 107 (96-108) mmol/L Carbon Dioxide 24 (22-29) mmol/L Anion Gap 14 (12-20) BUN 10 (9-16) mg/dL Creatinine 0.93 (0.5-1.4) mg/dL Estim Creat Clear Calc 81.7 Estimated GFR > 60 Random Glucose 135 H (60-115) mg/dL Calcium 9.3 (8.4-10.2) mg/dL Magnesium 2.2 (1.6-2.6) mg/dL Total Bilirubin 1.0 (0.0-1.0) mg/dL AST 27 (5-37) U/L ALT 32 (0-40) U/L Alkaline Phosphatase 108 (39-117) U/L Troponin I High Sens 4.3 (<3.5-35.0) ng/L Total Protein 7.1 (6.5-8.0) g/dL Albumin 4.6 (3.5-5.0) g/dL Influenza Type A (PCR) NEGATIVE (Negative) Influenza Type B (PCR) NEGATIVE (Negative) RSV RNA Qual (PCR) NEGATIVE (Negative) SARS-CoV-2 RNA (RT-PCR) NEGATIVE (Negative) Independent Interpretation I performed an independent interpretation of an: EKG Interpretation: My independent interpretation of the ECG reveals normal sinus rhythm with rate of 68, normal axis, right bundle branch block, frequent PVCs, no ST elevations or depressions to suggest ischemic changes, relatively unchanged from previous on 04/14/2024. Radiology Impression Discussion of test interpretation with radiology: I have reviewed the radiologist's reading. Radiologist Impression: CT head without contrast Comparison: None provided Findings: No intra-axial mass, midline shift, hydrocephalus, or acute hemorrhage. Minimal atrophy-like change and white matter disease. The visualized paranasal sinuses and mastoid air cells are normal. The orbits are unremarkable. No skull fracture. IMPRESSION: 1. No acute intracranial findings. If patient continues to have persistent or worsening symptoms, MRI should be considered for further evaluation. 2. Additional chronic/nonacute findings as above. This document has been electronically signed by: Rio Storm MD on 12/07/2024 22:28:57 Social Determinants Patient?s care significantly limited by Social Determinants of Health including: Problems related to primary support group Discharge Plan Discharge Clinical Impression: Heart palpitations Patient Disposition: Home, Self-Care Instructions: Heart Palpitations (ED) Additional Instructions: DIAGNOSIS & TREATMENT: You were seen in the Emergency Department for your palpitations. We performed laboratory work and head CT which did not reveal any acute abnormalities that would explain your symptoms. FURTHER CARE: We have not found any emergent physical exam or lab abnormalities that would require admission to the hospital today. Many people who come to the ER with palpitations do not leave with a specific diagnosis at the end of their visit. In the Emergency Department we try to make sure that there is no emergent problem that needs to cardiology consultation or antibiotics right now. This does not mean that your evaluation is complete--please be sure to follow up with your regular doctor as additional testing as an outpatient may be indicated Please be certain to drink plenty of fluids over the next several days. Be sure to stay well hydrated over the next several days. WHEN YOU SHOULD BE SEEN NEXT: Please follow-up with your primary care provider within the next 2-3 days for reevaluation of your symptoms. WHEN TO RETURN TO THE ED: Monitor your symptoms closely and return to the emergency department immediately for any new/worsening symptoms, worsening chest pain, shortness of breath, nausea, vomiting, fevers, chills, night sweats, if you are unable to arrange follow-up care, or any other concerning symptoms. Prescriptions: No Action ibuprofen 800 mg tablet 800 mg PO Q8H PRN (Reason: pain) Qty: 20 0RF cephalexin 500 mg capsule 500 mg PO BID 7 Days Qty: 14 0RF omeprazole 10 mg capsule,delayed release(DR/EC) 10 mg PO DAILY PRN (Reason: Gastric Reflux) Interventions: ED Discharge Assessment Last Done: 12/08/24 02:16 Discharge Date/Time: 12/08/24 02:17 Print Language: Palestinian
[2024-12-07 21:40] LABS: MANUAL DIFF FLAG NO
[2024-12-07 21:42] LABS: Hematocrit 41.5 % (42.0-52.0); Hemoglobin 14.8 g/dl (14.0-18.0); Imm Gran Abs Auto 0.02 X10*3/uL (0.00-0.03); Imm Gran Pct Auto 0.3 % (0.0-0.4); Lymphocytes Absolute Auto 2.2 X10*3/uL (1.2-4.9); Mean Corpuscular HGB Conc 35.7 g/dl (31.0-36.0); Mean Corpuscular Hemoglobin 32.5 pg (27.0-33.0); Mean Corpuscular Volume 91.2 fL (80.0-98.0); NRBC Abs Auto 0.000 X10*3/uL (0.0-0.012); NRBC Pct Auto 0.0 /100WBC (0.0-0.2); Platelet Count 224 X10*3/uL (160-400); Red Blood Count 4.55 X10*6/uL (4.60-5.80); White Blood Count 7.0 X10*3/uL (4.8-10.8)
[2024-12-07 21:48] LABS: INTERNATIONAL NORM RATIO 1.0 (0.9-1.1); Prothrombin Time 12.0 SEC (10.9-12.4)
[2024-12-07 21:50] LABS: Partial Thromboplastin Time 31.8 SEC (26.7-34.1)
[2024-12-07 21:54] LABS: Alanine Aminotransferase 32 U/L (0-40); Albumin Level 4.6 g/dL (3.5-5.0); Alkaline Phosphatase 108 U/L (39-117); Anion Gap 14 (12-20); Aspartate Amino Transferase 27 U/L (5-37); Blood Urea Nitrogen 10 mg/dL (9-16); Calcium 9.3 mg/dL (8.4-10.2); Carbon Dioxide 24 mmol/L (22-29); Chloride 107 mmol/L (96-108); Creatinine Clr Calc Pharmacy 81.7; Estimated Glomerular Filt Rate > 60; Magnesium 2.2 mg/dL (1.6-2.6); Potassium 3.9 mmol/L (3.3-5.1); Sodium 141 mmol/L (135-145); Total Protein 7.1 g/dL (6.5-8.0)
[2024-12-07 22:01] LABS: Troponin-I High Sensitivity 4.3 ng/L (<3.5-35.0)
[2024-12-07 22:18] LABS: Resp Syncy Virus RNA Qual PCR NEGATIVE (Negative); SARS COV2 PCR INHOUSE NEGATIVE (Negative)
[2024-12-07 23:10] VITALS: BP 166/92; PULSE 60; RESP 12; TEMP 36.5; O2SAT 98
[2024-12-08 02:16] VITALS: BP 161/80; PULSE 59; RESP 11; TEMP 36.6; O2SAT 96
== END 2024-12-08 02:17 | disposition home or self-care (01) ==
PROVIDERS: Emergency Provider Emergency Medicine; PCP Internal Medicine
DX: R00.2 Palpitations (principal); R06.02 Shortness of breath; R20.0 Anesthesia of skin; R53.83 Other fatigue; Z03.818 Encounter for observation for suspected exposure to other biological agents ruled out
CPT/HCPCS: 70450; 80053; 83735; 84484; 85025; 85610; 85730; 87637; 93005; 99284

== ENCOUNTER → 2024-12-07 21:19 | Outpatient (BNV) | payer BC, SELFPAY | PROVIDERS: PCP Internal Medicine; Visit Provider Radiology Diagnostic Radiology | DX: R20.2 Paresthesia of skin (principal) | CPT/HCPCS: 70450 ==

== ENCOUNTER → 2024-12-07 21:29 | Outpatient (BNV) | payer BC, SELFPAY | PROVIDERS: Emergency Provider Emergency Medicine; PCP Internal Medicine; Visit Provider Internal Medicine Cardiovascular Disease | DX: I45.10 Unspecified right bundle-branch block (principal) | CPT/HCPCS: 93010 ==

== ENCOUNTER 2025-01-07 10:40 | Outpatient (REF) | payer BC, SELFPAY ==
[2025-01-07 11:31] LABS: Alanine Aminotransferase 60 U/L (0-40); Albumin Level 4.5 g/dL (3.5-5.0); Alkaline Phosphatase 236 U/L (39-117); Aspartate Amino Transferase 46 U/L (5-37); Cholesterol 183 mg/dL (<200); HDL Cholesterol 65 mg/dL (>40); Total Protein 7.0 g/dL (6.5-8.0); Triglycerides 122 mg/dL (<150)
== END 2025-01-07 10:41 | disposition home or self-care (01) ==
LOC: HO.LNP 10:40
PROVIDERS: Visit Provider Internal Medicine
DX: I70.90 Unspecified atherosclerosis (principal)
CPT/HCPCS: 80061; 80076

== ENCOUNTER 2025-01-15 13:06 | Outpatient (REF) | payer BC, SELFPAY ==
--- OUTSIDE RECORDS SUMMARY | 2024-10-19 04:32 | XMS_ITS ---
Author Organization Chencho Vyas MD Address [address] [place] [phone] Care Team Providers Care Pharmacist In Charge Name Role Phone Chencho Vyas Primary Care Provider REASON FOR VISIT wants a call back Encounters Encounter Location Date Provider Diagnosis Chencho Vyas MD 10 [facility] [address] [place] [phone] 10/19/2024 Chencho Vyas Plan Of Treatment Next Appt Details Provider Name:Chencho Schilling ier, 01/18/2025 11:00:00 AM, [address] [place] [address], [address] [place] [address], [phone], Provider Name:Chencho Schilling ier, 02/26/2025 07:30:00 AM, [address] [place] [address], [address], [phone], Provider Name:Chencho Schilling ier, 03/05/2025 10:30:00 AM, [address] [place] [address], [address], [phone], Provider Name:Chencho camposr, 04/06/2025 10:15:00 AM, [address], [address], [place], [place], [phone], Provider Name:Chencho Schilling ier, 10/05/2025 07:00:00 AM, [address], [address], [place], [place], [phone], Provider Name:Chencho Schilling ier, 10/12/2025 10:30:00 AM, [address], [address], [place], [place], [phone], Progress Notes * GABRIELJaziel MckeonBingOB:1960 (63 yo M)Acc No.[id number]:10/19/2024 Patient: Lio SOLOMON :1960 A ge:63 Y S ex:Male Address:[address] [place] [id number] * true * Date: Generated for Johny hart/Hanane/eTransmitting on: 0 01/15/2025 02:25 PM EDT
--- OUTSIDE RECORDS SUMMARY | 2024-12-08 06:42 | XMS_ITS ---
Author Organization Chencho Vyas MD Address [address] [place] [phone] Care Team Providers Care Motor Vehicle Representative Name Role Phone Chencho Vyas Primary Care Provider REASON FOR VISIT ER Visit rec'd Encounters Encounter Location Date Provider Diagnosis Chencho Vyas MD 10 [facility] [address] [place] [phone] 12/08/2024 Chencho Vyas Plan Of Treatment Next Appt Details Provider Name:Chencho Schilling ier, 01/18/2025 11:00:00 AM, [address] [place] [address], [address] [place] [address], [phone], Provider Name:Chencho Schilling ier, 02/26/2025 07:30:00 AM, [address] [place] [address], [address], [phone], Provider Name:Chencho Schilling ier, 03/05/2025 10:30:00 AM, [address] [place] [address], [address], [phone], Provider Name:Chencho camposr, 04/06/2025 10:15:00 AM, [address], [address], [place], [place], [phone], Provider Name:Chencho Schilling ier, 10/05/2025 07:00:00 AM, [address], [address], [place], [place], [phone], Provider Name:Chencho Schilling ier, 10/12/2025 10:30:00 AM, [address], [address], [place], [place], [phone], Progress Notes * GABRIELJaziel MckeonBingOB:1960 (64 yo M)Acc No.[id number]:12/08/2024 Patient: Lio SOLOMON :1960 A ge:64 Y S ex:Male Address:[address] [place] [address] * true * Date: Generated for Johny hart/Hanane/eTransmitting on: 0 01/15/2025 02:26 PM EDT
--- OUTSIDE RECORDS SUMMARY | 2024-12-14 07:00 | XMS_ITS ---
Author Organization Chencho Vyas MD Address [address] [place] [phone] Care Team Providers Care Toter Name Role Phone Chencho Vyas Primary Care Provider [phone] Allergies No Known Allergies REASON FOR VISIT [...] Risk Notes Problem Ventricular premature complex (disorder) (097966471) PVC (premature ventricular contraction) (I49.3) Active confirmed Vital Signs Blood pressure systolic 114 mm Hg 12/15/19 Blood pressure diastolic 66 mm Hg 025 Height 70.5 in 12/14/2024 Weight 187 lbs 12/14/2024 BMI 26.45 kg/m2 12/14/2024 Encounters Encounter Location Date Provider Diagnosis Chencho Vyas MD [address] [place] [address] [place] [phone] 12/14/2024 Chencho Vyas Hypercholesterolemia E78.00 ; Atherosclerosis [...] use Next Appt Details Provider Name:Chencho garay, 01/18/2025 11:00:00 AM, [address] [place] [address], Suite [facility], [place], [place], [phone], Provider Name:Chnecho garay, 02/26/2025 07:30:00 AM, [address] [place] [address], [address] [place] [address], [phone], Provider Name:Chencho garay, 03/05/2025 10:30:00 AM, [address], [address], [place], [place], [phone], Provider Name:Chencho Schilling ier, 04/06/2025 10:15:00 AM, 10 [facility], [address], [place], [place], [phone], Provider Name:Chencho Schilling ier, 10/05/2025 07:00:00 AM, 10 [facility], [address], [place], [place], [phone], Provider Name:Chencho Schilling ier, 10/12/2025 10:30:00 AM, [address] [facility], [address], [place], [phone], Progress Notes * Syl BANDAOB:1960 (64 yo M)Acc No.[id number]:12/14/2024 Progress Notes Patient: Lio SOLOMON Provider: Dane Vyas MD :1960 A ge:64 Y S ex:Male Date:12/14/2024 Address:[address] [place] [address], [facility] Subjective: * Chief Complaints: * P ost [...] MD Date: 0 12/14/2024 Generated for Johny hart/Hanane/Angelicaitting on: 0 01/15/2025 02:26 PM EDT History and Physical Notes * HPI (History [...]
--- OUTSIDE RECORDS SUMMARY | 2025-01-07 03:30 | XMS_ITS ---
Author Organization Chencho Vyas MD Address [address] [place], [place] [phone] Care Team Providers Care Scrap Crane Operator Name Role Phone Chencho Vyas Primary Care Provider Results Component Value Reference Range Notes Liver Panel Reviewed date:01/07/2025 12:47:40 PM Interpretation: Performing Lab:[facility], [address] [place] [phone] Notes/Report: Bilirubin Total 1.7 0.0-1.0 mg/dL Slight Icte rita. Bilirubin Direct 0.6 0.0-0.5 mg/dL Slight Ict erus. Aspartate Amino Transferase 46 5-37 U/L Alanine Aminotransferase 60 0-40 U/L Total Protein 7.0 6.5-8.0 g/dL Albumin Level 4.5 3.5-5.0 g/dL Alkaline Phosphatase 236 39-117 U/L Lipid Panel Reviewed date:01/07/2025 12:19:23 PM Interpretation: Performing Lab:[facility], [address] [place] [phone] Notes/Report: Triglycerides 122 <150 mg/dL Desirable Triglyceride: [...] Location Date Provider Diagnosis Chencho Vyas MD [address] [place] [phone] 01/07/2025 Chencho Vyas Hypercholesterolemia E78.00 and Atherosclerosis I70.90 Assessments Encounter Date Diagnosis (ICD Code) Assessment Notes Treatment Notes Treatment Clinical Notes Section Notes 01/07/2025 Hypercholesterolemia (ICD-10 - E78.00) 01/07/2025 Atherosclerosis (ICD -10 - I70.90) Plan Of Treatment Next Appt Details Provider Name:Chencho garay, 01/18/2025 11:00:00 AM, [address] [place] [address], [address], [phone], Provider Name:Chencho garay, 02/26/2025 07:30:00 AM, [address] [place] [address], [address], [phone], Provider Name:Chencho garay, 03/05/2025 10:30:00 AM, [address] [place] [address], [address], [phone], Provider Name:Chencho garay, 04/06/2025 10:15:00 AM, [address] [place] [address], [address], [phone], Provider Name:Chencho garay, 10/05/2025 07:00:00 AM, [address] [place] [address] [address], [place], [place], [phone], Provider Name:Chencho Schilling ier, 10/12/2025 10:30:00 AM, [facility], [address], [place], [place], [phone], Progress Notes * Syl BANDAOB:1960 (64 yo M)Acc No.[id number]:01/07/2025 Progress Note Patient: Lio SOLOMON Provider: Dane Vyas MD :1960 A ge:64 Y S ex:Male Date:01/07/2025 Address:[address] [place], [place] [phone] Subjective: * Chief Complaints: * 1 . [...] Pending * Provider: Dane Vyas MD Date: 01/07/2025 Generated for Johny hart/Hanane/Angelicaitting on: 01/15/2025 02:26 PM EDT
--- OUTSIDE RECORDS SUMMARY | 2025-01-15 06:15 | XMS_ITS ---
Author Organization Chencho Vyas MD Address [address] [place] [phone] Care Team Providers Care Chair Finisher Name Role Phone Chencho Vyas Primary Care Provider [phone] Allergies No Known Allergies REASON FOR VISIT 3 month, Recheck LFT, [facility] 01-18-25 for Flu vaccine Medications Medication SIG [...] Location Date Provider Diagnosis Chencho Vyas MD [address] [place] [id number] 01/15/2025 Chencho Vyas Elevated liver function tests [...] tthe statin and recheck in 6 weeks Pending Test Test Name Order Date Liver Panel 01/15/2025 Future Test Test Name Order Date Liver Panel 02/26/2025 Next Appt Details Provider Name:Chencho camposr, 01/18/2025 11:00:00 AM, [address] [place] [address], [address], [phone], Provider Name:Chencho camposr, 02/26/2025 07:30:00 AM, [address] [place] [address], [address], [phone], Provider Name:Chencho camposr, 03/05/2025 10:30:00 AM, [address] [place] [address], [phone], Provider Name:Chencho camposr, 04/06/2025 10:15:00 AM, [address] [place] [address], [phone], Provider Name:Chencho garay, 10/05/2025 07:00:00 AM, [address] [place] [address], [id number], Provider Name:Chencho garay, 10/12/2025 10:30:00 AM, [address] [place] [address], [phone], Progress Notes * Syl BANDAOB:1960 (64 yo M)Acc No.[id number]:01/15/2025 Progress Notes Patient: Lio SOLOMON Provider: Dane Vyas MD :1960 A ge:64 Y S ex:Male Date:01/15/2025 Address:[address] [place] [address], [place] [address] Subjective: * Chief Complaints: * 1 . 3 month. 2. Recheck LFT. 3. FReturning 01-18-25 for Flu vaccine. * HPI: S ymptom(s): patient is a [...] on back films. * Medications: T aking Pepcid AC 10 MG Tablet 1 tablet as needed Orally Twice a day , Taking Triamcinolone Acetonide 0.1 % Cream 1 application Externally Twice a day , Taking Omeprazole 20 MG Capsule Delayed Release 1 capsule Orally Once a day , Taking Atorvastatin Calcium 40 MG Tablet TAKE 1 TABLET BY MOUTH EVERY DAY FOR 30 DAYS , Not-Taking/PRN Ofloxacin 0.3 % Solution 2 drops Ophthalmic 3 times a day , Not-Taking/PRN amLODIPine Besylate 5 [...] E levated liver function tests - R79.89 Plan: * Treatment: * Procedure Codes: 3 6415 VENIPUNCT, ROUTINE* * * The named appointment provid er may or may not be the originator of this progress note, and it is not deemed complete until electronically signed by the appointment provider. Sign off status: Pending * Provider: Dane Vyas MD Date: 0 01/15/2025 Generated for Johny hart/Hanane/Angelicaitting on: 01/15/2025 02:26 PM EDT History and Physical [...]
[2025-01-15 13:31] LABS: Albumin Level 4.3 g/dL (3.5-5.0); Alkaline Phosphatase 256 U/L (39-117); Aspartate Amino Transferase 58 U/L (5-37); Total Protein 7.5 g/dL (6.5-8.0)
--- OUTSIDE RECORDS SUMMARY | 2025-01-15 14:27 | XMS_ITS | Patient Health Record ---
Author Organization Chencho Vyas MD Address [address] [place], [place] [id number] Care Team Providers Care Pocketed Spring Machine Operator Name Role Phone Chencho Vyas Primary Care Provider Allergies No Known Allergies Results Component Value Reference Range Notes Liver Panel Reviewed date:03/27/2024 03:00:10 PM Interpretation: Performing Lab:[facility], [address] [place] [phone] Notes/Report: Bilirubin Total 1.3 0.0-1.0 mg/dL Bilirubin Direct 0.4 0.0-0.5 mg/dL Aspartate Amino Transferase 33 5-37 U/L Alanine Aminotransferase 29 0-40 U/L Total Protein 7.0 6.5-8.0 g/dL Albumin Level 4.2 3.5-5.0 g/dL Alkaline Phosphatase 76 39-117 U/L Glucose Fasting Reviewed date:03/27/2024 03:00:58 PM Interpretation: Performing Lab:[facility], [address] [place] [phone] Notes/Report: Glucose Fasting 92 60-99 mg/dL Lipid Panel with Reflex Reviewed date:03/30/2024 12:58:01 PM Interpretation: Performing Lab:[facility], [address] [place] [phone] Notes/Report: Triglycerides 96 <150 mg/dL Desirable Triglyceride: [...] A1c Reviewed date:03/27/2024 12:24:19 PM Interpretation: Performing Lab:[facility], [address] [place] [phone] Notes/Report: Hemoglobin A1c % 5.3 <6.0 % [...] average glucose, using the formula of the P0F-Xynilsr Average Glucose study (ADAG), Diabetes Care, Vol.31,#8, Nov. 2007 Complete Blood Count Auto Di ff Reviewed date:05/01/2024 05:17:29 PM Interpretation: Performing Lab:[facility], [address] [place] [phone] Notes/Report: White Blood Count 6.1 4.8-10.8 X10*3/uL Red Blood Count 4.67 4.60-5.80 X10*6/uL Hemoglobin 15.0 14.0-18.0 g/dl Hematocrit 43.6 42.0-52.0 % Mean Corpuscular Volume 93.4 80.0-98.0 fL Mean Corpuscular Hemoglobin 32.1 27.0-33.0 pg Mean Corpuscular HGB Conc 34.4 31.0-36.0 g/dl Red Cell Distribution Width 12.2 11.0-16.0 % Platelet Count 397 160-400 X10*3/uL Mean Platelet Volume 9.4 9.4-12.4 fL Neutrophils Percent Auto 32.8 45-73 % Imm Gran Pct Auto 0.3 0.0-0.4 % Lymphocytes Percent Auto 49.7 20-40 % Monocytes Percent Auto 13.3 2-11 % Eosinophils Percent Auto 2.8 0-4 % Basophils Percent Auto 1.1 0-2 % NRBC Pct Auto 0.0 0.0-0.2 /100WBC Neutrophils Absolute Auto 2.0 2.0-8.3 x10*3/uL Imm Gran Abs Auto 0.02 0.00-0.03 X10*3/uL Lymphocytes Absolute Auto 3.0 1.2-4.9 X10*3/uL Monocytes Absolute Auto 0.8 0.1-1.2 X10*3/uL Eosinophils Absolute Auto 0.2 0.0-0.4 X10*3/uL Basophils Absolute Auto 0.1 0.0-0.2 X10*3/uL NRBC Abs Auto 0.000 0.0-0.012 X10*3/uL Complete Blood Count Auto Di ff Reviewed date:09/28/2024 12:44:24 PM Interpretation: Performing Lab:[facility], [address] [place] [phone] Notes/Report: White Blood Count 6.6 4.8-10.8 X10*3/uL Red Blood Count 4.81 4.60-5.80 X10*6/uL Hemoglobin 15.5 14.0-18.0 g/dl Hematocrit 45.5 42.0-52.0 % Mean Corpuscular Volume 94.6 80.0-98.0 fL Mean Corpuscular Hemoglobin 32.2 27.0-33.0 pg Mean Corpuscular HGB Conc 34.1 31.0-36.0 g/dl Red Cell Distribution Width 11.8 11.0-16.0 % Platelet Count 279 160-400 X10*3/uL Mean Platelet Volume 9.9 9.4-12.4 fL Neutrophils Percent Auto 43.2 45-73 % Imm Gran Pct Auto 0.2 0.0-0.4 % Lymphocytes Percent Auto 45.0 20-40 % Monocytes Percent Auto 7.7 2-11 % Eosinophils Percent Auto 3.0 0-4 % Basophils Percent Auto 0.9 0-2 % NRBC Pct Auto 0.0 0.0-0.2 /100WBC Neutrophils Absolute Auto 2.9 2.0-8.3 x10*3/uL Imm Gran Abs Auto 0.01 0.00-0.03 X10*3/uL Lymphocytes Absolute Auto 3.0 1.2-4.9 X10*3/uL Monocytes Absolute Auto 0.5 0.1-1.2 X10*3/uL Eosinophils Absolute Auto 0.2 0.0-0.4 X10*3/uL Basophils Absolute Auto 0.1 0.0-0.2 X10*3/uL NRBC Abs Auto 0.000 0.0-0.012 X10*3/uL Comprehensive [place]. Panel Fa st Reviewed date:09/28/2024 05:05:16 PM Interpretation: Performing Lab:[facility], [address] [place] [phone] Notes/Report: Sodium 141 135-145 mmol/L Potassium 4.3 3.3-5.1 mmol/L Chloride 105 96-108 mmol/L Carbon Dioxide 30 22-29 mmol/L Anion Gap 10 12-20 Blood Urea Nitrogen 15 9-16 mg/dL Creatinine 1.01 0.5-1.4 mg/dL Estimated Glomerular Filt Rate > 60 Chronic Kidney Disease: Estimated GFR < 60 mL/min/1.73m2 Severe Kidney Disease: Estimated GFR < 15 mL/min/1.73m2 Glucose Fasting 93 60-99 mg/dL Calcium 9.2 8.4-10.2 mg/dL Bilirubin Total 1.5 0.0-1.0 mg/dL Aspartate Amino Transferase 28 5-37 U/L Alanine Aminotransferase 24 0-40 U/L Total Protein 7.2 6.5-8.0 g/dL Albumin Level 4.5 3.5-5.0 g/dL Alkaline Phosphatase 73 39-117 U/L Lipid Panel Reviewed date:09/28/2024 12:25:19 PM Interpretation: Performing Lab:[facility], [address] [place] [phone] Notes/Report: Triglycerides 147 <150 mg/dL Desirable Triglyceride: less than 150 mg/dL Borderline High Triglyceride 150-199 mg/dL High Triglyceride: 200-499 mg/dL Very High Triglyceride: greater than or equal to 5OO mg/dL Cholesterol 248 <200 mg/dL Desirable Cholesterol: less than 200 mg/dL Borderline High Cholesterol: 200-239 mg/dL High Cholesterol: greater than 239 mg/dL LDL Cholesterol Calculated 160 <100 mg/dL Desirable LDL: less than 100 mg/dL Near Optimal/Above Optimal LDL: 110-129 mg/dL Borderline High LDL: 130-159 mg/dL High LDL: 160-189 mg/dL Very High LDL: greater than or equal to 190 mg/dL HDL Cholesterol 59 >40 mg/dL Desirable HDL: greater than 40 mg/dL Note: This HDL assay may give artificially low results in patients with liver disease. PSA,Total (Free>4and<10) Reviewed date:09/28/2024 12:24:38 PM Interpretation: Performing Lab:[facility], [address] [place] [phone] Notes/Report: PSA,Total (Free>4and<10) 0.52 0.00-4.00 ng/mL A Free PSA was not [...] Chemiluminescent Microparticle Immunoassay (CMIA) Microalbumin, Random Reviewed date:09/28/2024 12:24:53 PM Interpretation: Performing Lab:[facility], [address] [place] [phone] Notes/Report: Creatinine Urine 129.95 Microalbumin Urine < 5.0 Microalbum/Creatinine Ratio Ur TNP <30 ug/mg cr Unable to calculate albumin/creatinine ratio due to low microalbumin or creatinine result. Hemoglobin A1c Reviewed date:09/28/2024 12:25:09 PM Interpretation: Performing Lab:[address] [phone] Notes/Report: Hemoglobin A1c % 5.3 <6.0 % [...] average glucose, using the formula of the I8M-Oqwwxgv Average Glucose study (ADAG), Diabetes Care, Vol.31,#8, Nov. 2007 UA ClnCatch+Micro w/rflx Cul t Reviewed date:09/28/2024 05:04:45 PM Interpretation: Performing Lab:[facility], [address] [place] [phone] Notes/Report: Urine, Clean Catch Color Urine Dark Yellow Appearance Urine Clear PH 7.5 5.0-9.0 Glucose Urine UA Negative Negative mg/dL Urine Blood Negative Negative Specific Vaughn - Urine 1.020 1.005-1.025 Urine Protein Negative Neg-Trace mg/dL Urine Ketones Negative Negative mg/dL Nitrite Urine Negative Negative Leukocyte Esterase Urine Negative Negative RBC Urine 0-2 0-2 /HPF WBC Urine 0-5 0-5 /HPF Squamous Epithelial Cell Urine 0-2 0-2 /HPF Bacteria Urine None Seen None Seen Hyaline Casts Urine 0-2 0-2 /LPF Liver Panel Reviewed date:01/07/2025 12:47:40 PM Interpretation: Performing Lab:[address] [phone] Notes/Report: Bilirubin Total 1.7 0.0-1.0 mg/dL Slight Icte rita. Bilirubin Direct 0.6 0.0-0.5 mg/dL Slight Ict erus. Aspartate Amino Transferase 46 5-37 U/L Alanine Aminotransferase 60 0-40 U/L Total Protein 7.0 6.5-8.0 g/dL Albumin Level 4.5 3.5-5.0 g/dL Alkaline Phosphatase 236 39-117 U/L Lipid Panel Reviewed date:01/07/2025 12:19:23 PM Interpretation: Performing Lab:[facility], [address] [place] [phone] Notes/Report: Triglycerides 122 <150 mg/dL Desirable Triglyceride: [...] low results in patients with liver disease. XR lumbar spine 2-3V Reviewed date:10/16/2024 10:45:43 AM Interpretation:10-16-2024 Performing Lab: Notes/Report: [address] [address] XRay Report Signed Patient: Lio Banda MR#: [id number] 64 : 1960 Acct:[id number] Age/Sex: 63 / M ADM Date: 10/05/24 Loc: COLLEEN Attending Dr: Chencho Vyas MD Ordering Physician: Chencho Vyas MD Date of Service: 10/05/24 Procedure(s): XR lumbar spine 2-3V Accession Number(s): [id number] cc: Chencho Vyas MD EXAMINATION: XR LUMBOSACRAL SPINE CLINICAL INFORMATION: BACK PAIN COMPARISON: None available. TECHNIQUE: Three views of the lumbosacral spine. FINDINGS: There are 5 nonrib-bearing lumbar segments. There is mild degenerative changes of the SI joints. There is gckp-iv-razazxol atherosclerotic calcification in the abdominal aorta. T12-L1: [...] 10/05/24 1133 DD/ 1120 TD/TT: 10/05/24 1127 Embosser Operator: [place] [address] XRay Report Signed Patient: Jerome Banda MR#: [id number] 64 : 1960 Acct:[id number] Age/Sex: 63 / M ADM Date: 10/05/24 Loc: COLLEEN Attending Dr: Chencho Vyas MD Ordering Physician: Chencho Vyas MD Date of Service: 10/05/24 Procedure(s): XR lum bar spine 2-3V Accession Number(s): [id number] cc: Chencho Vyas MD EXAMINATION: XR LUMBOSACRAL SPINE CLINICAL INFORMATION: BACK PAIN COMPARISON: None available. TECHNIQUE: Three views of the lumbosacral spine. FINDINGS: There are 5 nonrib-bearing lumbar segments. There is mild degenerative changes of the SI joints. There is wosm-sw-xtjagjvc atherosclerotic calcification in the abdominal aorta. T12-L1: [...] osteophytes. XR/XR lumbar spine 2-3V IMPRESSION: Moderate degenerativ e disc disease and facet osteoarthritis. Moderate abdominal aorta vascular calcification. Electronically linda d by: Maximino Ramires MD 10/05/2024 11:33 AM EDT RP Dictated By: Maximino Ramires MD Signed By: <Electronically signed by Maximino Ramires MD in OV> 10/05/24 1133 DD/ 1120 TD/TT: 10/05/24 1127 Embosser Operator: Emeka Morales Reviewed date:03/27/2024 12:24:37 PM Interpretation: Performing Lab:[facility], [address] [place] [phone] Notes/Report: Emeka Morales See Note Specimen held untested for 24 hours; Call to request Chemistry testing. Complete Blood Count Auto Di ff Reviewed date:05/01/2024 10:19:41 AM Interpretation:see back 05-01-24 Performing Lab:[facility], [address] [place] [phone] Notes/Report: White Blood Count 2.8 4.8-10.8 X10*3/uL [...] 0.0-0.2 /100WBC Neutrophils Absolute Auto 1.8 2.0-8.3 x10*3/uL Imm Gran Abs Auto 0.01 0.00-0.03 X10*3/uL Lymphocytes Absolute Auto 0.7 1.2-4.9 X10*3/uL Monocytes Absolute Auto 0.3 0.1-1.2 X10*3/uL Eosinophils Absolute Auto 0.0 0.0-0.4 X10*3/uL Basophils Absolute Auto 0.0 0.0-0.2 X10*3/uL NRBC Abs Auto 0.000 0.0-0.012 X10*3/uL Prothrombin Time INR Reviewed date:04/14/2024 04:20:07 PM Interpretation: Performing Lab:[facility], [address] [place] [phone] Notes/Report: Prothrombin Time 12.7 10.9-12.4 [employer] [...] Panel Reviewed date:04/16/2024 12:33:21 PM Interpretation: Performing Lab:[facility], [address] [place] [phone] Notes/Report: Sodium 135 135-145 mmol/L Potassium 3.3 [...] Magnesium Reviewed date:04/14/2024 04:14:56 PM Interpretation: Performing Lab:[facility], [address] [place] [phone] Notes/Report: Magnesium 2.1 1.6-2.6 mg/dL Troponin-I High Sensitivity Reviewed date:04/14/2024 04:19:58 PM Interpretation: Performing Lab:[address] [phone] Notes/Report: Troponin-I High Sensitivity 3.3 <3.5-35.0 ng/L The Arias high sensitivity Troponin-I results should be used in conjunction with other diagnostic information such as ECG, clinical observations and information, and patient symptoms to aid in the diagnosis of VT. Lipase Reviewed date:04/14/2024 04:19:06 PM Interpretation: Performing Lab:[facility], [address] [place] [phone] Notes/Report: Lipase 27 8-78 U/L SARS-CoV2/FLU/RSV Reviewed date:04/14/2024 04:18:49 PM Interpretation: Performing Lab:[facility], [address] [place] [phone] Notes/Report: Influenza A PCR NEGATIVE Negative Influenza [...] by authorized laboratories. Testing performed on the Vivo[employer] GeneXpert utilizing real-time RT-PCR. All SARS CoV2 and positive influenza A/B results are reported to [facility]. XR chest 2V Reviewed date:04/14/2024 04:15:26 PM Interpretation: Performing Lab: Notes/Report: [address] [address] XRay Report Signed Patient: Lio Banda MR#: [id number] 64 : 1960 Acct:[id number] Age/Sex: 63 / M ADM Date: 04/14/24 Loc: HO.ED Attending Dr: Ordering Physician: Rubina Nuno MD Date of Service: 04/14/24 Procedure(s): XR chest 2V Accession Number(s): [id number] cc: Chencho Vyas MD; Rubina Nuno MD [...] by: Tin Strickland MD 04/14/2024 12:19 PM EST RP Dictated By: Tin Strickland MD Signed By: <Electronically signed by Tin Strickland MD in OV> 04/14/24 1219 DD/ 1129 TD/TT: 04/14/24 1154 Embosser Operator: [address] [address] XRay Report Signed Patient: Jerome Banda MR#: [id number] 64 : 1960 Acct:[id number] Age/Sex: 63 / M ADM Date: 04/14/24 Loc: HO.ED Attending Dr: Ordering Physician: Rubina Nuno MD Date of Service: 04/14/24 Procedure(s): XR prashant st 2V Accession Number(s): [id number] cc: Chencho Vyas MD; Rubina Nuno MD [...] active pulmonary disease. No interval change. Electronically linda d by: Tin Strickland MD 04/14/2024 12:19 PM EST RP Dictated By: Tin Strickland MD Signed By: <Electronically signed by Tin Strickland MD in OV> 04/14/24 1219 DD/ 1129 TD/TT: 04/14/24 1154 Embosser Operator: CT head/brain wo con Reviewed date:12/08/2024 10:05:50 AM Interpretation: Performing Lab: Notes/Report: [address] [address] [address] Scan Report Signed Patient: Lio Banda MR#: [id number] 64 : 1960 Acct:[id number] Age/Sex: 64 / M ADM Date: 12/07/24 Loc: HO.ED Attending Dr: Ordering Physician: Generic ED Physician Date of Service: 12/07/24 Procedure(s): CT head/brain wo IV con Accession Number(s): [id number] cc: Chencho Vyas MD; Generic ED Physician Report Number: [id number]: Total DLP = 610.00 mGy-cm CLINICAL HISTORY: numbness to face CT head without contrast Comparison: None provided Findings: No intra-axial mass, midline shift, hydrocephalus, or acute hemorrhage. Minimal atrophy-like change and white matter disease. The visualized paranasal sinuses and mastoid air cells are normal. The orbits are unremarkable. No skull fracture. IMPRESSION: 1. No acute intracranial findings. If patient continues to have persistent or worsening symptoms, MRI should be considered for further evaluation. 2. Additional chronic/nonacute findings as above. This document has been electronically signed by: Rio Storm MD on 12/07/2024 22:28:57 Dictated By: Rio Storm MD Signed By: <Electronically signed by Rio Storm MD in OV> 12/07/242228 DD/ 27 TD/TT: 12/07/242227 Embosser Operator: [place] [address] CT Scan Report Signed Patient: Jerome Banda MR#: [id number] 64 : 1960 Acct:[id number] Age/Sex: 64 / M ADM Date: 12/07/24 Loc: HO.ED Attending Dr: Ordering Physician: Generic ED Physician Date of Service: 12/07/24 Procedure(s): CT head/brain wo IV con Accession Number(s): [id number] cc: Chencho Vyas MD; Generic ED Physician Report Number: [id number]: Total DLP = 610.00 mGy-cm CLINICAL HISTORY: numbness to face CT head without contrast Comparison: None provided Findings: No intra-axial mass, midline shift, hydrocephalus, or acute hemorrhage. Minimal atrophy-like change and white matter disease. The visualized paranasal sinuses and mastoid air cells are normal. The orbits are unremarkable. No skull fracture. IMPRESSION: 1. No acute intracranial findings. If patient continues to have persistent or worsening symptom s, MRI should be considered for further evaluation. 2. Additional chronic/nonacute findings as above. This document has be en electronically signed by: Rio Storm MD on 12/07/2024 22:28:57 Dictated By: Rio Storm MD Signed By: <Electronically signed by Rio Storm MD in OV> 12/07/242228 DD/ 27 TD/TT: 12/07/242227 Embosser Operator: Emeka Morales Reviewed date:01/15/2025 02:21:34 PM Interpretation: Performing Lab:[facility], [address] [place] [phone] Notes/Report: Emeka Morales See Note Specimen held untested for 24 hours; Call to request Chemistry testing. Reason For Referral No Information Medications Medication SIG (Take, Route, Frequency, Duration) [...] DAY FOR 30 DAYS for 90 Active Pepcid AC 10 MG 1 tablet as needed Orally Twice a day Active Immunizations Vaccine Route Administration Date Status [...] Unknown 09/05/2020 Refused Tetanus Unknown 02/19/2016 Pending Social History Tobacco Use: Social History Observation [...] Never (0 point) Points 1 Interpretation Negative Problems Problem Type SNOMED Code ICD Code Onset Dates Problem Status W/U Status Risk Notes Problem Ventricular premature complex (disorder) (770116483) PVC (premature ventricular contraction) (I49.3) Active confirmed Problem Lymphocytosis (36769580) Lymphocytosis (D72.820) Active confirmed Problem 95835890 Prostatism (N40.0) Active confirmed Problem Atherosclerosis of abdominal aorta (739041645) Atherosclerosis of abdominal aorta (I70.0) Active confirmed Problem 461152112 Bergman's esopha 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 (K22.70) Active confirmed Problem Prediabetes (295472832) Prediabetes (R73.09) Active confirmed Problem Benign essential hypertension (4246778) Benign essential hypertension (I10) Active confirmed Problem 58268347 Stress (F43.9) Active confirmed Problem Right bundle branch block (07430081) Right bundle branch block (I45.10) Active confirmed Problem Atherosclerosis (25458586) Atherosclerosis (I70.90) Active confirmed Problem 50379799 Hypercholesterol emia (E78.00) Active confirmed Problem 764359682 Left inguinal he rnia (K40.90) Active confirmed Problem 519521558 Indigestion (K30) Active confirmed Problem 601135234 Gastric reflux (K21.9) Active confirm ed Vital Signs Blood pressure diastolic 60 mm Hg 01/15/2025 Height 70.5 in 01/15/2025 Blood pressure systolic 120 mm Hg 01/15/2025 Weight 189 lbs 01/15/2025 BMI 26.73 kg/m2 01/15/2025 Encounters Encounter Location Date Provider Diagnosis Chencho Vyas MD [address] [place] [id number] 03/27/2024 Chencho Vyas Prediabetes R73.09 a nd Hypercholesterolemia E78.00 Chencho Vyas MD [address] [place] [id number] 05/01/2024 Chencho Vyas Lymphocytosis D72.82 0 Chencho Vyas MD [address] [place] [id number] 09/28/2024 Chencho Vyas Blood tests for rout ine general physical examination Z00.00 ; Prediabetes R73.09 ; Hypercholesterolemia E78.00 ; Lymphocytosis D72.820 and Benign essential hypertension I10 Chencho Vyas MD [address] [place] [id number] 10/16/2024 Chencho Vyas Atherosclerosis I70. 90 and Atherosclerosis of abdominal aorta I70.0 Chencho Vyas MD [address] [place] [id number] 01/07/2025 Chencho Vyas Hypercholesterolemia E78.00 and Atherosclerosis I70.90 Chencho Vyas MD [address] [place] [id number] 01/15/2025 Chencho Vyas Elevated liver funct ion tests R79.89 Chencho Vyas MD [address] [place] [id number] 04/02/2024 Chencho Vyas Hypercholesterolemia E78.00 ; Benign essential hypertension I10 ; Bergman's esophagus without dysplasia K22.70 and Prediabetes R73.09 Chencho Vyas MD [address] [place] [id number] 10/05/2024 Chencho Vyas Annual physical exam Z00.00 ; Back pain M54.9 ; Lymphocytosis D72.820 ; Benign essential hypertension I10 ; Bergman's esophagus without dysplasia K22.70 ; Prediabetes R73.09 ; Hypercholesterolemia E78.00 ; Colon cancer screening Z12.11 and Depression screening Z13.31 Chencho Vyas MD [address] [place] [id number] 12/14/2024 Chencho Vyas Hypercholesterolemia E78.00 ; Atherosclerosis of abdominal aorta I70.0 ; PVC (premature ventricular contraction) I49.3 and Hordeolum externum left upper eyelid H00.014 Chencho Vyas MD [address] [place] [id number] 10/19/2024 Chencho Vyas MD [address] [place] [id number] 12/08/2024 Chencho Vyas Assessments Encounter Date Diagnosis (ICD Code) Assessment Notes Treatment Notes Treatment Clinical Notes Section Notes 03/27/2024 Prediabetes (ICD-10 - R73.09) 03/27/2024 Hypercholesterolemia (ICD-10 - E78.00) 05/01/2024 Lymphocytosis (ICD-1 0 - D72.820) 09/28/[address] ine general physical examination (ICD-10 - Z00.00) 10/16/2024 Atherosclerosis (ICD -10 - I70.90) patient verbalized understanding of medication and directions for use, pending diagnostic testing 10/16/2024 Atherosclerosis of abdominal aorta (ICD-10 - I70.0) 01/07/2025 Hypercholesterolemia (ICD-10 - E78.00) 01/15/2025 Elevated liver funct ion tests (ICD-10 - R79.89) is probably related to his statins will hold tthe statin and recheck in 6 weeks 04/02/2024 Hypercholesterolemia (ICD-10 - E78.00) just a little high. advised diet, will continue to monitor 04/02/2024 Benign essential hypertension (ICD-10 - I10) running a little high today, will continue to monitor 10/05/2024 Annual physical exam (ICD-10 - Z00.00) orders given to patient, labs reviewed and discussed with patient 10/05/2024 Back pain (ICD-10 - M54.9) would like xrays, pending diagnostic testing 12/14/2024 Hypercholesterolemia (ICD-10 - E78.00) on statins, will continue current regiment 12/14/2024 Atherosclerosis of abdominal aorta (ICD-10 - I70.0) should get ldl to 75 09/28/2024 Prediabetes (ICD-10 - R73.09) 01/07/2025 Atherosclerosis (ICD -10 - I70.90) 04/02/2024 Bergman's esophagus without dysplasia (ICD-10 - K22.70) remain on omeprazole 10/05/2024 Lymphocytosis (ICD-1 0 - D72.820) stable, will continue to monitor 12/14/2024 PVC (premature ventricular contraction) (ICD-10 - I49.3) no significance 09/28/2024 Hypercholesterolemia (ICD-10 - E78.00) 04/02/2024 Prediabetes (ICD-10 - R73.09) stable, no need for medication at this time 10/05/2024 Benign essential hypertension (ICD-10 - I10) doing well, will continue t monitor 12/14/2024 Hordeolum externum l eft upper eyelid (ICD-10 - H00.014) patient verbalized understanding of medication and directions for use 09/28/2024 Lymphocytosis (ICD-1 0 - D72.820) 10/05/2024 Bergman's esophagus without dysplasia (ICD-10 - K22.70) is going to get repeat endo, will contnue current regiment 09/28/2024 Benign essential hypertension (ICD-10 - I10) 10/05/2024 Prediabetes (ICD-10 - R73.09) stable, o need for medication at this time 10/05/2024 Hypercholesterolemia (ICD-10 - E78.00) stable, will continue to monitor 10/05/2024 Colon cancer screeni ng (ICD-10 - Z12.11) guaiac negative 10/05/2024 Depression screening (ICD-10 - Z13.31) negative screen Plan Of Treatment Pending Test Test Name Order Date Electrocardiogram (EKG) 03/12/2011 Electrocardiogram (EKG) 08/15/2017 Liver Panel 01/15/2025 Next Appt Details Provider Name:Chencho garay, 01/18/2025 11:00:00 AM, [address] [place] [address], [address], [place], [place], [phone], Provider Name:Chencho Schilling ier, 02/26/2025 07:30:00 AM, [address] [facility], [address], [place], [place], [phone], Provider Name:Chencho Schilling ier, 03/05/2025 10:30:00 AM, [address] [facility], [address], [place], [place], [phone], Provider Name:Chencho Schilling ier, 04/06/2025 10:15:00 AM, [address] [place] [address], [address], [place], [place], [phone], Provider Name:Chencho Schilling ier, 10/05/2025 07:00:00 AM, [address] [place] [address], [address] [facility], [place], [place], [phone], Provider Name:Chencho Schilling ier, 10/12/2025 10:30:00 AM, [address] [place] [address], [place] [address], [place], [place], [phone], Insurance Providers Payer Name Payer Address Payer Phone Subscriber Number Group Number Insured Name Patient Relationship to Insured Coverage Start Date Coverage End Date [employer]UE [employer] BLUE SHIELD [address] [place], [place] [phone] [id number] Lio Banda Self - patient is the insured MEDICARE [facility] [address] [place] [address] [id number] Lio Banda Self - patient is the insured Medical (General) History Medical History History ICD Code colonoscopy 2009 due in 10 y ears going to get hernia fixed qnd then get colonoscopy:12/12 colonoscopy repeat 10 years Lymphocytosis D72.820 Lymphocytosis atherosclerosis of aorta on back films Surgical History Surgery Date(Month/Year) Repair LT Inguinal Hernia w/o Mesh - Dr. Ford 09/2018
--- OUTSIDE RECORDS SUMMARY | 2025-01-15 14:27 | XMS_ITS | Patient Health Record ---
Author Organization [facility] Address [address] [place] [address] Care Team Providers Care Tail Sawyer Name Role Phone Chencho Vyas MD Primary Care Provider Juan Lock Unavailable [phone] Allergies No Known Allergies Reason For Referral No Information Medications Medication SIG (Take, Route, Fr equency, Duration) Notes Start Date End Date Status Omeprazole 20 MG TAKE 1 CAPSULE BY [facility] EVERY DAY for 90 Active Immunizations Vaccine Route Administration [...] W/U Status Risk Notes Problem Esophageal reflux (084143904) Esophageal reflux (K21.9) Active confirmed Problem 35993039 Heme + stool (R19.5) Active confirmed Problem Gastritis (9590458) Gastritis (K29.70) Active confirmed Problem Diverticulosis of colon (293757759) Diverticulosis of colon (K57.30) Active confirmed Problem 337591934 Gastroesophageal reflux disease, unspecified whether esophagitis present (K21.9) Active confirmed Encounters Encounter Location Date Provider Diagnosis [facility] [address] [place] [address] 04/23/2024 Juan Aguilar [facility] [address] [place] [address] 04/23/2024 Juan Jeff [facility] [address] [place] [address] 04/24/2024 Juan Aguilar Plan Of Treatment Future Test Test Name Order Date UPPER GI ENDOSCOPY 10/02/2022 COLONOSCOPY 10/02/2022 Insurance Providers Payer Name Payer Address Payer Phone Subscriber Number Group Number Insured Name Patient Relationship to Insured Coverage Start Date Coverage End Date [facility] [employer] [address] [place] [address] [id number] CYNDY BANDA Self - patient is the insured Medical (General) History Medical History History ICD Code GERD Colonoscopy 04/2009 with a hy perplastic polyp---told of needing a 10 year follow up Denies [place],DM,CVA,Lung disease,renal dise ase Surgical History Surgery Date(Month/Year) Left inguinal hernia surgery x 2 in 2018 and 2020--2020 was with a mesh--Dr. Ford. Has an appt with Dr. Bergman at [facility] for a 2nd opinion
[2025-01-15 15:13] LABS: Alanine Aminotransferase 68 U/L (0-40)
== END 2025-01-15 13:07 | disposition home or self-care (01) ==
LOC: HO.LNP 13:06
PROVIDERS: Visit Provider Internal Medicine
DX: R79.89 Other specified abnormal findings of blood chemistry (principal)
CPT/HCPCS: 80076

== ENCOUNTER 2025-02-26 12:55 | Outpatient (REF) | payer BC, SELFPAY ==
--- OUTSIDE RECORDS SUMMARY | 2024-10-05 05:30 | XMS_ITS ---
Author Organization Chencho Vyas MD Address [address] [place], [place] [id number] Care Team Providers Care Dynamic Balancer Name Role Phone Chencho Vyas Primary Care Provider Allergies No Known Allergies Results Component Value Reference Range Notes XR lumbar spine 2-3V Reviewed date:10/16/2024 10:45:43 AM Interpretation:10-16-2024 Performing Lab: Notes/Report: [address] [address] XRay Report Signed Patient: Lio Banda MR#: [id number] 64 : 1960 Acct:[id number] Age/Sex: 63 / M ADM Date: 10/05/24 Loc: HO.AMRITAY Attending Dr: Chencho Vyas MD Ordering Physician: Chencho Vyas MD Date of Service: 10/05/24 Procedure(s): XR lumbar spine 2-3V Accession Number(s): [id number] cc: Chencho Vyas MD EXAMINATION: XR LUMBOSACRAL SPINE CLINICAL INFORMATION: BACK PAIN COMPARISON: None available. TECHNIQUE: Three views of the lumbosacral spine. FINDINGS: There are 5 nonrib-bearing lumbar segments. There is mild degenerative changes of the SI joints. There is eeuq-at-yukcevdf atherosclerotic calcification in the abdominal aorta. T12-L1: There is mild disc space narrowing and vacuum phenomena with anterior osteophytes. L1-2: There is moderate disc space narrowing with vacuum phenomenon, endplate sclerosis, and osteophytes. L2-3: There is mild disc space narrowing and subtle retrolisthesis. There are endplate osteophytes and mild facet sclerosis. L3-4: There is mild disc space narrowing. There are endplate osteophytes. There is facet sclerosis and osteophytes. L4-5: There is grade 1 retrolisthesis. There is vacuum phenomenon and moderate disc space narrowing. There endplate osteophytes. There is facet sclerosis and osteophytes. L5-S1: There is moderate disc space narrowing, endplate sclerosis, and endplate osteophytes. There is also facet sclerosis with osteophytes. XR/XR lumbar spine 2-3V IMPRESSION: Moderate degenerative disc disease and facet osteoarthritis. Moderate abdominal aorta vascular calcification. Electronically signed by: Maximino Ramires MD 10/05/2024 11:33 AM EDT RP Dictated By: Maximino Ramires MD Signed By: <Electronically signed by Maximino Ramires MD in OV> 10/05/24 1133 DD/ 1120 TD/TT: 10/05/24 1127 Office Machine Servicer: [place] [id number] XRay Report Signed Patient: Jerome Banda MR#: [id number] 64 : 1960 Acct:[id number] Age/Sex: 63 / M ADM Date: 10/05/24 Loc: COLLEEN Attending Dr: Chencho Vyas MD Ordering Physician: Chencho Vyas MD Date of Service: 10/05/24 Procedure(s): XR lum bar spine 2-3V Accession Number(s): [id number] cc: Chencho Vyas MD EXAMINATION: XR LUMBOSACRAL SPINE CLINICAL INFORMATION: BACK PAIN COMPARISON: None available. TECHNIQUE: Three views of the l umbosacral spine. FINDINGS: There are 5 nonrib-b earing lumbar segments. There is mild degene rative changes of the SI joints. There is mild-to-mod erate atherosclerotic calcification in the abdominal aorta. T12-L1: There is mil d disc space narrowing and vacuum phenomena with anterior osteophytes. L1-2: There is moder ate disc space narrowing with vacuum phenomenon, endplate sclerosis, and osteophytes. L2-3: There is mild disc space narrowing and subtle retrolisthesis. There are endplate o steophytes and mild facet sclerosis. L3-4: There is mild disc space narrowing. There are endplate osteophytes. There i s facet sclerosis and osteophytes. L4-5: There is grade 1 retrolisthesis. There is vacuum phenomenon and moderate disc space narrowing. There endplate osteophytes. There is facet sclerosis and osteophytes. L5-S1: There is mode rate disc space narrowing, endplate sclerosis, and endplate osteophytes . There is also facet sclerosis with osteophytes. X R/XR lumbar spine 2-3V IMPRESSION: Moderate degenerativ e disc disease and facet osteoarthritis. Moderate abdominal a justina vascular calcification. Electronically linda d by: Maximino Ramires MD 10/05/2024 11:33 AM EDT Dictated By: Maximino Ramires MD Signed By: <Electro nically signed by Maximino Ramires MD in OV> 10/05/24 1133 DD/ 1120 TD/TT: 10/05/24 1127 Office Machine Servicer: REASON FOR VISIT annual visit Medications Medication SIG (Take, Route, Frequency, Duration) Notes Start Date End Date Status PARoxetine HCl 10 MG 1 tablet in the mor mari Orally Once a day for 30 day(s) Not-Taking Omeprazole 20 MG 1 capsule Orally Onc e a day 11/04/2018 Active amLODIPine Besylate 5 MG 1 tablet Orally Once a day for 30 day(s) Not-Taking Triamcinolone Acetonide 0.1 % 1 application Externally Twice a day for 30 days 09/25/2022 Active Social History Tobacco Use: Social History Observation Description Date Details (start date - stop date) Never Smoker NA - NA Tobacco Use/Smoking Question Answer Notes Patient is [...] Never (0 point) Points 1 Interpretation Negative Vital Signs Blood pressure systolic 112 mm Hg 10/06/19 25 Blood pressure diastolic 60 mm Hg 025 Height 70.5 in 10/05/2024 Weight 187 lbs 10/05/2024 BMI 26.45 kg/m2 10/05/2024 weight is down 5 pounds [facility] e 04-02-24 Encounters Encounter Location Date Provider Diagnosis Chencho Vyas MD [address] [place] [address] [place] [phone] 10/05/2024 Chencho Vyas Annual physical exam Z00.00 ; Back pain M54.9 ; Lymphocytosis D72.820 ; Benign essential hypertension I10 ; Bergman's esophagus without dysplasia K22.70 ; Prediabetes R73.09 ; Hypercholesterolemia E78.00 ; Colon cancer screening Z12.11 and Depression screening Z13.31 Assessments Encounter Date Diagnosis (ICD Code) Assessment Notes Treatment Notes Treatment Clinical Notes Section Notes 10/05/2024 Annual physical exam (ICD-10 - Z00.00) orders given to patient, labs reviewed and discussed with patient 10/05/2024 Back pain (ICD-10 - M54.9) would like xrays, pending diagnostic testing 10/05/2024 Lymphocytosis (ICD-1 0 - D72.820) stable, will continue to monitor 10/05/2024 Benign essential hypertension (ICD-10 - I10) doing well, will continue t monitor 10/05/2024 Bergman's esophagus without dysplasia (ICD-10 - K22.70) is going to get repeat endo, will contnue current regiment 10/05/2024 Prediabetes (ICD-10 - R73.09) stable, o need for medication at this time 10/05/2024 Hypercholesterolemia (ICD-10 - E78.00) stable, will continue to monitor 10/05/2024 Colon cancer screeni ng (ICD-10 - Z12.11) guaiac negative 10/05/2024 Depression screening (ICD-10 - Z13.31) negative screen Plan Of Treatment Medication Medication Name Sig Start Date Stop Date Notes Omeprazole 20 MG 1 capsule Orally Once a day 11/04/2018 Treatment Notes Assessment Notes Annual physical exam orders given to pat ient, labs reviewed and discussed with patient Back pain would like xrays, pe nding diagnostic testing Lymphocytosis stable, will continu e to monitor Benign essential hypertension doing well , will continue t monitor Bergman's esophagus without dysplasia is going to get repeat endo, will contnue current regiment Prediabetes stable, o need for m edication at this time Hypercholesterolemia stable, will contin ue to monitor Colon cancer screening guaiac negative Depression screening negative screen Next Appt Details Follow Up: 6 Months, Reason: Provider Name:Chencho garay, 03/05/2025 10:30:00 AM, [address] [place] [address], [address], [phone], Provider Name:Chencho garay, 04/06/2025 10:15:00 AM, [address] [place] [address], [address], [phone], Provider Name:Chencho garay, 10/05/2025 07:00:00 AM, [address] [place] [address], [address], [phone], Provider Name:Chencho garay, 10/12/2025 10:30:00 AM, [address] [place] [address], [address], [phone], Progress Notes * Syl BANDAOB:1960 (63 yo M)Acc No.[id number]:10/05/2024 Progress Notes Patient: Lio SOLOMON Provider: Dane Vyas MD :1960 A ge:63 Y S ex:Male Date:10/05/2024 Address:[address] [place] [address], [id number] Subjective: * Chief Complaints: * A nnual visit * HPI: D epression Screening: PHQ-9 L ittle interest or pleasure in doing things N ot at all, F eeling down, depressed, or hopeless N ot at all, T rouble falling or staying asleep, or sleeping too much N ot at all, F eeling tired or having little energy N ot at all, P oor appetite or overeating N ot at all, F eeling bad about yourself or that you are a failure, or have let yourself or your family down N ot at all, T rouble concentrating on things, such as reading the newspaper or watching television N ot at all, M oving or speaking so slowly that other people could have noticed; or the opposite, being so fidgety or restless that you have been moving around a lot more than usual N ot at all, T houghts that you would be better off or of hurting yourself in some way N ot at all, T otal Score 0 . I nterpretation and Intervention D epression Screening Findings N egative, F ollow-Up for Depression : review of PHQ-9 found negative result, no follow-up needed. C ommunication Needs: Communication Needs D oes the patient have a hearing impairment N o, D oes the patient have a vision impairment? Y es, I f yes, what is the vision impairment? G lasses, D oes the patient have a cognition impairment? N o. F all Risk: History H ave you had any falls with injury in the past year? N o, H ave you had two or more falls in the past year? N o. S MARSHALL Questions: SDOH Questions I n the past year have you been worried about losing housing? N o, I n the past year have you or any family members you live with been unable to get any of the following when it was really needed? Check all that apply: N one. S ymptom(s): patient is a 63 yo male here for annual visit with review of recent labs and follow up of chronic issues.getting aches and pains all over./ has pain in abdomen for a month. started to eat prunes and it got better. feeling tired. * ROS: G eneral/Constitutional: Change in appetite d enies. C hills d enies. F ever d enies. O phthalmologic: Blurred vision d enies. D ischarge d enies. P ain d enies. E NT: Decreased hearing d enies. S ore throat d enies.?Swollen glands d enies. E ndocrine: Cold intolerance d enies. E xcessive thirst d enies. H eat intolerance d enies. W eight loss d enies. R espiratory: Cough d enies. S hortness of breath at rest d enies. S hortness of breath with exertion d enies. W heezing d enies. C ardiovascular: Chest pain at rest d enies. C hest pain with exertion?denies. I rregular heartbeat d enies. S hortness of breath d enies. ? G astrointestinal: Abdominal pain d enies. C hange in bowel habits d enies. D iarrhea d enies. N ausea d enies. R ectal bleeding d enies. V omiting d enies . G enitourinary: Blood in urine d enies. D ifficulty urinating d enies. F requent urination d enies. M usculoskeletal: Painful joints d enies. W eakness d enies. ? S kin: Dry skin d enies. I tching d enies. D enies?Mole(s), changes in moles, new moles or any lesions of concern. D enies P hotosensitivity. R ezra d enies. N eurologic: Dizziness d enies. F ainting d enies. H eadache?denies. * Medical History: * Surgical History: * Hospitalization/Major Diagno stic Procedure: * Family History: F ather: 77 yrs, CHF, emphysema. M other: 84 yrs, cardiac disease. 1 brother(s) . . No history of mental illness or drug abuse in the family, Denies mental health/substance abuse family history, Denies mental health/substance abuse family history, Denies mental health/substance abuse family history. * Social History: T obacco Use: T obacco Use/Smoking P jammie is a n onsmoker, A dditional Findings: Tobacco Non-User C urrent non-smoker, currently using no form of tobacco. D rugs/Alcohol: A lcohol Screen D id you have a drink containing alcohol in the past year? Y es, H ow often did you have a drink containing alcohol in the past year? M onthly or less (1 point), H ow many drinks did you have on a typical day when you were drinking in the past year? 1 or 2 drinks (0 point), H ow often did you have 6 or more drinks on one occasion in the past year? N ever (0 point), P oints 1 , I nterpretation N egative. M iscellaneous: C affeine: yes, frequency:, 2-3 cups per day. Children: no. Community involvements: yes. Exercise: yes, walks everyday. Home smoke detector use: yes. Living with: family. Marital status: single. Occupation: weeks/months/years, works full-time. Pets: none. Travel outside of the [place]: no. * Medications: T akingTriamcinolone Acetonide 0.1 % Cream 1 application Externally Twice a day Omeprazole 20 MG Capsule Delayed Release 1 capsule Orally Once a day Taking Triamcinolone Acetonide 0.1 % Cream 1 application Externally Twice a day Taking Omeprazole 20 MG Capsule Delayed Release 1 capsule Orally Once a day Not-Taking/PRNamLODIPine Besylate 5 MG Tablet 1 tablet Orally Once a day PARoxetine HCl 10 MG Tablet 1 tablet in the morning Orally Once a day Medication List reviewed and reconciled with the patientNot-Taking/PRN amLODIPine Besylate 5 MG Tablet 1 tablet Orally Once a day Not-Taking/PRN PARoxetine HCl 10 MG Tablet 1 tablet in the morning Orally Once a day Medication List reviewed and reconciled with the patient * Allergies: N .K.D.A.yes[Allergies Verified] Objective: * Vitals: H t: 70.5, Wt: 187, BMI:26.45, BP:112/60, Wt-k.82. weight is down 5 pounds since 04-02-24. * P ast Orders: L ab:Microalbumin, Random (Order Date - 09/28/2024) (Collection Date & Time - 09/28/2024 07:15 AM) Value Reference Range Creatinine Urine 129.95 - mg/dL Microalbumin Urine < 5.0 - mg/L Microalbum Creatinine Ratio Ur TNP <30 - ug/ mg cr L ab:Hemoglobin A1c (Order Date - 09/28/2024) (Collection Date & Time - 09/28/2024 07:15 AM) Value Reference Range Hemoglobin A1c % 5.3 <6.0 - % Estimated Average Glucose 105 - mg/dL L ab:Complete Blood Count Auto Diff (Order Date - 09/28/2024) (Collection Date & Time - 09/28/2024 07:15 AM) Value Reference Range White Blood Count 6.6 4.8-10.8 - X10*3/uL Red Blood Count 4.81 4.60-5.80 - X10*6/uL Hemoglobin 15.5 14.0-18.0 - g/dl Hematocrit 45.5 42.0-52.0 - % Mean Corpuscular Volume 94.6 80.0-98.0 - fL Mean Corpuscular Hemoglobin 32.2 27.0-33.0 - pg Mean Corpuscular HGB Conc 34.1 31.0-36.0 - g/ dl Red Cell Distribution Width 11.8 11.0-16.0 - % Platelet Count 279 160-400 - X10*3/uL Mean Platelet Volume 9.9 9.4-12.4 - fL Neutrophils Percent Auto 43.2 L 45-73 - % Imm Gran Pct Auto 0.2 0.0-0.4 - % Lymphocytes Percent Auto 45.0 H 20-40 - % Monocytes Percent Auto 7.7 2-11 - % Eosinophils Percent Auto 3.0 0-4 - % Basophils Percent Auto 0.9 0-2 - % NRBC Pct Auto 0.0 0.0-0.2 - /100WBC Neutrophils Absolute Auto 2.9 2.0-8.3 - x10* 3/uL Imm Gran Abs Auto 0.01 0.00-0.03 - X10*3/uL Lymphocytes Absolute Auto 3.0 1.2-4.9 - X10* 3/uL Monocytes Absolute Auto 0.5 0.1-1.2 - X10*3/ uL Eosinophils Absolute Auto 0.2 0.0-0.4 - X10* 3/uL Basophils Absolute Auto 0.1 0.0-0.2 - X10*3/ uL NRBC Abs Auto 0.000 0.0-0.012 - X10*3/uL L ab:UA ClnCatch+Micro w/rflx Cult (Order Date - 09/28/2024) (Collection Date & Time - 09/28/2024 07:15 AM) Value Reference Range Color Urine Dark Yellow - Appearance Urine Clear - PH 7.5 5.0-9.0 - Glucose Urine UA Negative Negative - mg/dL Urine Blood Negative Negative - Specific [place] - Urine 1.020 1.005-1.025 - Urine Protein Negative Neg-Trace - mg/dL Urine Ketones Negative Negative - mg/dL Nitrite Urine Negative Negative - Leukocyte Esterase Urine Negative Negative - RBC Urine 0-2 0-2 - /HPF WBC Urine 0-5 0-5 - /HPF Squamous Epithelial Cell Urine 0-2 0-2 - /HP F Bacteria Urine None Seen None Seen - Hyaline Casts Urine 0-2 0-2 - /LPF L ab:Comprehensive Axtell. Panel Fast (Order Date - 09/28/2024) (Collection Date & Time - 09/28/2024 07:15 AM) Value Reference Range Sodium 141 135-145 - mmol/L Bilirubin Total 1.5 H 0.0-1.0 - mg/dL Aspartate Amino Transferase 28 5-37 - U/L Alanine Aminotransferase 24 0-40 - U/L Total Protein 7.2 6.5-8.0 - g/dL Albumin Level 4.5 3.5-5.0 - g/dL Alkaline Phosphatase 73 39-117 - U/L Potassium 4.3 3.3-5.1 - mmol/L Chloride 105 96-108 - mmol/L Carbon Dioxide 30 H 22-29 - mmol/L Anion Gap 10 L 12-20 - Blood Urea Nitrogen 15 9-16 - mg/dL Creatinine 1.01 0.5-1.4 - mg/dL Estimated Glomerular Filt Rate > 60 - Glucose Fasting 93 60-99 - mg/dL Calcium 9.2 8.4-10.2 - mg/dL L ab:Lipid Panel (Order Date - 09/28/2024) (Collection Date & Time - 09/28/2024 07:15 AM) Value Reference Range Triglycerides 147 <150 - mg/dL Cholesterol 248 H <200 - mg/dL LDL Cholesterol Calculated 160 H <100 - mg/dL HDL Cholesterol 59 >40 - mg/dL L ab:PSA,Total (Free>4and<10) (Order Date - 09/28/2024) (Collection Date & Time - 09/28/2024 07:15 AM) Value Reference Range PSA,Total (Free>4and<10) 0.52 0.00-4.00 - ng/ mL * Examination: G eneral Examination: GENERAL APPEARANCE: w ell developed, well nourished, in no acute distress. HEAD: n ormocephalic, atraumatic. EYES: p upils equal, round, reactive to light and accommodation, sclera non-icteric. EARS: n ormal. ORAL CAVITY: m ucosa moist. THROAT: c lear. NECK/THYROID: n tamiko supple, full range of motion, no cervical lymphadenopathy, no bruits. SKIN: w arm and dry, no suspicious lesions. HEART: r egular rate and rhythm, S1, S2 normal, no murmurs/ has occasional extrasysol. LUNGS: c lear to auscultation bilaterally. ABDOMEN: s oft, nontender, nondistended, bowel sounds present, normal, no organomegaly , no masses palpable. RECTAL EXAM: n ormal tone, no external hemorrhoids, no masses palpable, prostate normal, stool guaiac negative. MALE GENITOURINARY: c ircumcised, testes descended bilaterally, no testicular mass. EXTREMITIES: n o clubbing, cyanosis, or edema. NEUROLOGIC: n onfocal, motor strength normal upper and lower extremities, sensory exam intact. Assessment: * Assessment: 1. A nnual physical exam - Z00.00 (Primary) 2 . B ack pain - M54.9 ? 3 . L ymphocytosis - D72.820 4 . B enign essential hypertension - I10 5 . B arrett's esophagus without dysplasia - K22.70 6 . P rediabetes - R73.09 7 . H ypercholesterolemia - E78.00 8 . C olon cancer screening - Z12.11 9 . D epression screening - Z13.31 ? Plan: * Treatment: 2. B ack pain I maging: XR lumbar spine 2-3V (Performed Date - 10/05/2024) Notes: would like xrays, pending diagnostic testing 3. L ymphocytosis Notes: stable, will continue to monitor 4. B enign essential hypertension Notes: doing well, will continue t monitor 5. B arrett's esophagus without dysplasia Continue Omeprazole Capsule Delayed Release, 20 MG, 1 capsule, Orally, Once a day. Notes: is going to get repeat endo, will contnue current regiment 6. P rediabetes Notes: stable, o need for medication at this time 7. H ypercholesterolemia Notes: stable, will continue to monitor 8. C olon cancer screening Notes: guaiac negative 9. D epression screening Notes: negative screen * Procedure Codes: * Follow Up: 6 Months * * Sign off status: Completed true * Provider: Dane Vyas MD Date: 0 10/05/2024 Generated for Johny hart/Hanane/Angelicaitting on: 1 04/28/2024 03:05 PM EST History and Physical Notes * HPI (History of Present Illness) Category Sub-Category Detail Notes Category Not es Symptom(s) patient is a 63 yo male here for annual visit with review of recent labs and follow up of chronic issues.getting aches and pains all over./ has pain in abdomen for a month. started to eat prunes and it got better. feeling tired. Depression Screening PHQ-9 Little inte rest or [...] Have you had any falls with injury i n the past year?: No Have you had two or more falls in the st year?: No Communication Needs Communication Needs Does the patient have a hearing impairment: No Does the patient have a vision impairmen t?: Yes If yes, what is the vision impairment?: Glasses Does the patient have a cognition impair ment?: No Examination Category Sub-Category Detail Notes Category Not es General Examination GENERAL APPEARANCE: well dev eloped, well nourished, in no acute distress HEAD: normocephalic, atrau matic EYES: pupils equal, round, reactive to light and accommodation, sclera non-icteric EARS: normal THROAT: clear NECK/THYROID: neck supple, full ra nge of motion, no cervical lymphadenopathy, no bruits HEART: regular rate and rhy thm, S1, S2 normal, no murmurs/ has occasional extrasysol LUNGS: clear to auscultatio n bilaterally ABDOMEN: soft, nontender, non distended, bowel sounds present, normal, no organomegaly , no masses palpable NEUROLOGIC: nonfocal, motor stre ngth normal upper and lower extremities, sensory exam intact SKIN: warm and dry, no mei picious lesions EXTREMITIES: no clubbing, cyanosi s, or edema MALE GENITOURINARY: circumcised, testes descended bilaterally, no testicular mass RECTAL EXAM: normal tone, no exte rnal hemorrhoids, no masses palpable, prostate normal, stool guaiac negative ORAL CAVITY: mucosa moist
--- OUTSIDE RECORDS SUMMARY | 2024-10-16 05:30 | XMS_ITS ---
Author Organization Chencho Vyas MD Address [address] [place], [place] [id number] Care Team Providers Care Business Specialist Name Role Phone Chencho Vyas Primary Care Provider [phone] Allergies No Known Allergies REASON FOR VISIT discuss x-ray results Medications Medication SIG (Take, Route, Frequency, Duration) Notes Start Date End Date Status Triamcinolone Acetonide 0.1 % 1 application Externally Twice a day for 30 days 09/25/2022 Active Omeprazole 20 MG 1 capsule Orally Onc a day 11/04/2018 Active amLODIPine Besylate 5 MG 1 tablet Orally Once a day for 30 day(s) Not-Taking Atorvastatin Calcium 40 MG 1 tablet Orally Once a day for 30 days 10/16/2024 Active PARoxetine HCl 10 MG 1 tablet in the mor mari Orally Once a day for 30 day(s) Not-Taking Problems Problem Type SNOMED Code ICD Code Onset Dates Problem Status W/U Status Risk Notes Problem Atherosclerosis (13697656) Atherosclerosis (I70.90) Active confirmed Problem Atherosclerosis of abdominal aorta (053122416) Atherosclerosis of abdominal aorta (I70.0) Active confirmed Vital Signs Blood pressure systolic 152 mm Hg 10/17/19 25 Blood pressure diastolic 70 mm Hg 025 Height 70.5 in 10/16/2024 Weight 186 lbs 10/16/2024 BMI 26.31 kg/m2 10/16/2024 Encounters Encounter Location Date Provider Diagnosis Chencho Vyas MD [address] [place] [phone] 10/16/2024 Chencho Vyas Atherosclerosis I70. 90 and Atherosclerosis of abdominal aorta I70.0 Assessments Encounter Date Diagnosis (ICD Code) Assessment Notes Treatment Notes Treatment Clinical Notes Section Notes 10/16/2024 Atherosclerosis (ICD-10 - I70.90) patient verbalized understanding of medication and directions for use, pending diagnostic testing 10/16/2024 Atherosclerosis of abdominal aorta (ICD-10 - I70.0) Plan Of Treatment Medication Medication Name Sig Start Date Stop Date Notes Atorvastatin Calcium 40 MG 1 tablet Oral ly Once a day for 30 days 10/16/2024 Treatment Notes Assessment Notes Atherosclerosis patient verbalized u nderstanding of medication and directions for use, pending diagnostic testing Next Appt Details Follow Up: 3 Months, Reason: Provider Name:Chencho garay, 03/05/2025 10:30:00 AM, [address] [place] [address], [address], [phone], Provider Name:Chencho garay, 04/06/2025 10:15:00 AM, [address] [place] [address], [phone], Provider Name:Chencho garay, 10/05/2025 07:00:00 AM, [address] [place] [address], [phone], Provider Name:Chencho garay, 10/12/2025 10:30:00 AM, [address] [place] [address], [phone], Progress Notes * Syl BANDAOB:1960 (64 yo M)Acc No.[id number]:10/16/2024 Patient: Lio SOLOMON Provider: Dane Vyas MD :1960 A ge:63 Y S ex:Male Date:10/16/2024 Address:[address] [place] [address], [id number] Subjective: * Chief Complaints: * 1 . Discuss x-ray results. * HPI: S ymptom(s): patient is a 63 yo male here to discuss findings of recent diagnostic testing. * ROS: G eneral/Constitutional: Denies C hills. D enies F atigue. D enies F ever. D enies H eadache. E NT: Denies S ore throat. R espiratory: Denies C ough. D enies S hortness of breath at rest. D enies S hortness of breath with exertion. G astrointestinal: Denies D iarrhea. D enies N ausea. * Medical History: C olonoscopy 2009 due in 10 years going to get hernia fixed qnd then get colonoscopy:12/12 colonoscopy repeat 10 years, Lymphocytosis, Lymphocytosis, Atherosclerosis of aorta on back films. * Medications: T aking Triamcinolone Acetonide 0.1 % Cream 1 application Externally Twice a day , Taking Omeprazole 20 MG Capsule Delayed Release 1 capsule Orally Once a day , Not-Taking/PRN amLODIPine Besylate 5 MG Tablet 1 tablet Orally Once a day , Not-Taking/PRN PARoxetine HCl 10 MG Tablet 1 tablet in the morning Orally Once a day , Medication List reviewed and reconciled with the patient * Allergies: N .K.D.A. Objective: * Vitals: H t: 70.5, Wt: 186, BMI:26.31, BP:152/70, Repeat BP:140/80, Wt-k.37. * Examination: G eneral Examination: GENERAL APPEARANCE: a lert, well hydrated, in no distress, male. SKIN: g ood turgor. HEART: r egular rate and rhythm, no murmurs, rubs, gallops.? LUNGS: n o wheezes, rales, rhonchi, good air movement, clear to auscultation bilaterally. Assessment: * Assessment: 1. A therosclerosis - I70.90 (Primary) 2 . A therosclerosis of abdominal aorta - I70.0 Plan: * Treatment: * Follow Up: 3 Months * * The named appointment provid er may or may not be the originator of this progress note, and it is not deemed complete until electronically signed by the appointment provider. Sign off status: Pending * Provider: Dane Vyas MD Date: 0 10/16/2024 Generated for Johny hart/Hanane/Severino on: 04/28/2024 03:05 PM EST History and Physical Notes * HPI (History of Present Illness) Category Sub-Category Detail Notes Category Not es Symptom(s) patient is a 63 yo male here to discuss findings of recent diagnostic testing Examination Category Sub-Category Detail Notes Category Not es General Examination GENERAL APPEARANCE: alert, w ell hydrated, in no distress, male HEART: regular rate and rhy thm, no murmurs, rubs, gallops LUNGS: no wheezes, rales, r honchi, good air movement, clear to auscultation bilaterally SKIN: good turgor
--- OUTSIDE RECORDS SUMMARY | 2024-10-19 03:32 | XMS_ITS ---
Author Organization Chencho Vyas MD Address [address] [place] [phone] Care Team Providers Care Bi Architect Name Role Phone Chencho Vyas Primary Care Provider [phone] REASON FOR VISIT wants a call back Encounters Encounter Location Date Provider Diagnosis Chencho Vyas MD 10 [facility] [address] [place] [phone] 10/19/2024 Chencho Vyas Plan Of Treatment Next Appt Details Provider Name:Chencho Schilling ier, 03/05/2025 10:30:00 AM, [address] [place] [address], [address] [place] [address], [phone], Provider Name:Chencho Schilling ier, 04/06/2025 10:15:00 AM, [address] [place] [address], [address], [phone], Provider Name:Chencho camposr, 10/05/2025 07:00:00 AM, [address] [place] [address], [address], [phone], Provider Name:Chencho garay, 10/12/2025 10:30:00 AM, [address], [address], [place], [place], [phone], Progress Notes * Syl BANDAOB:1960 (63 yo M)Acc No.[id number]:10/19/2024 Patient: Lio SOLOMON :1960 A ge:63 Y S ex:Male Address:[address] [place] [phone] * true * Date: Generated for Johny hart/Hanane/eTransmitting on: 04/28/2024 03:05 PM EST
--- OUTSIDE RECORDS SUMMARY | 2024-12-08 05:42 | XMS_ITS ---
Author Organization Chencho Vyas MD Address [address] [place] [phone] Care Team Providers Care Survey Party Chief Name Role Phone Chencho Vyas Primary Care Provider REASON FOR VISIT ER Visit rec'd Encounters Encounter Location Date Provider Diagnosis Chencho Vyas MD 10 [facility] [address] [place] [phone] 12/08/2024 Chencho Vyas Plan Of Treatment Next Appt Details Provider Name:Chencho Schilling ier, 03/05/2025 10:30:00 AM, [address] [place] [address], [address] [place] [address], [phone], Provider Name:Chencho Schilling ier, 04/06/2025 10:15:00 AM, [address] [place] [address], [address], [phone], Provider Name:Chencho camposr, 10/05/2025 07:00:00 AM, [address] [place] [address], [address], [phone], Provider Name:Chencho garay, 10/12/2025 10:30:00 AM, [address], [address], [place], [place], [phone], Progress Notes * Syl BANDAOB:1960 (64 yo M)Acc No.[id number]:12/08/2024 Patient: Lio SOLOMON :1960 A ge:64 Y S ex:Male Address:[address] [place] [id number] * true * Date: Generated for Johny hart/Hanane/eTransmitting on: 04/28/2024 03:06 PM EST
--- OUTSIDE RECORDS SUMMARY | 2024-12-14 06:00 | XMS_ITS ---
Author Organization Chencho Vyas MD Address [address] [place], [place] [phone] Care Team Providers Care Conduit Installer Name Role Phone Chencho Vyas Primary Care Provider [phone] Allergies No Known Allergies REASON FOR VISIT Post ER Visit Medications Medication SIG (Take, Route, Frequency, Duration) Notes Start Date End Date Status Pepcid AC 10 MG 1 tablet as needed Orally Twice a day Active Atorvastatin Calcium 40 MG 1 tablet Orally Once a day 10/16/2024 Active Triamcinolone Acetonide 0.1 % 1 application Externally Twice a day for 30 days 09/25/2022 Active Ofloxacin 0.3 % 2 drops Ophthalmic 3 times a day for 10 days 12/14/2024 Active PARoxetine HCl 10 MG 1 tablet in the mor mari Orally Once a day for 30 day(s) Not-Taking amLODIPine Besylate 5 MG 1 tablet Orally Once a day for 30 day(s) Not-Taking Omeprazole 20 MG 1 capsule Orally Onc e a day 11/04/2018 Active Problems Problem Type SNOMED Code ICD Code Onset Dates Problem Status W/U Status Risk Notes Problem Ventricular premature complex (disorder) (519951725) PVC (premature ventricular contraction) (I49.3) Active confirmed Vital Signs Blood pressure systolic 114 mm Hg 12/15/19 Blood pressure diastolic 66 mm Hg 025 Height 70.5 in 12/14/2024 Weight 187 lbs 12/14/2024 BMI 26.45 kg/m2 12/14/2024 Encounters Encounter Location Date Provider Diagnosis Chencho Vyas MD [address] [place] [address] [place] [phone] 12/14/2024 Chencho Vyas Hypercholesterolemia E78.00 ; Atherosclerosis of abdominal aorta I70.0 ; PVC (premature ventricular contraction) I49.3 and Hordeolum externum left upper eyelid H00.014 Assessments Encounter Date Diagnosis (ICD Code) Assessment Notes Treatment Notes Treatment Clinical Notes Section Notes 12/14/2024 Hypercholesterolemia (ICD-10 - E78.00) on statins, will continue current regiment 12/14/2024 Atherosclerosis of abdominal aorta (ICD-10 - I70.0) should get ldl to 75 12/14/2024 PVC (premature ventricular contraction) (ICD-10 - I49.3) no significance 12/14/2024 Hordeolum externum l eft upper eyelid (ICD-10 - H00.014) patient verbalized understanding of medication and directions for use Plan Of Treatment Medication Medication Name Sig Start Date Stop Date Notes Atorvastatin Calcium 40 MG 1 tablet Orally Once a day 09/21 Ofloxacin 0.3 % 2 drops Ophthalmic 3 times a day for 10 days 12/14/2024 Treatment Notes Assessment Notes Hypercholesterolemia on statins, will co ntinue current regiment Atherosclerosis of abdominal aorta shoul d get ldl to 75 PVC (premature ventricular contraction) no significance Hordeolum externum left upper eyelid pat ient verbalized understanding of medication and directions for use Next Appt Details Provider Name:Chencho garay, 03/05/2025 10:30:00 AM, [address] [place] [address], Suite [facility], [place], [place], [phone], Provider Name:Chencho garay, 04/06/2025 10:15:00 AM, [address] [place] [address], [address] [place] [address], [phone], Provider Name:Chencho garay, 10/05/2025 07:00:00 AM, [address], [address], [place], [place], [phone], Provider Name:Chencho Schilling ier, 10/12/2025 10:30:00 AM, [address] [facility] [address], [address], [place], [place], [phone], Progress Notes * Syl BANDAOB:1960 (64 yo M)Acc No.[id number]:12/14/2024 Progress Notes Patient: Lio SOLOMON Provider: Dane Vyas MD :1960 A ge:64 Y S ex:Male Date:12/14/2024 Address:[address] [place] [address], [facility] Subjective: * Chief Complaints: * P ost ER Visit * HPI: S ymptom(s): patient is a 64 yo male here for follow up from recent ER visit/ had irregular pulse and some numbness in face. comes and goes.ecg with extra heart beats. has been under a lot of stress. now has a sty. * ROS: G eneral/Constitutional: Denies C hills. D enies F atigue. D enies F ever. D enies H eadache. E NT: Denies S ore throat. R espiratory: Denies C ough. D enies S hortness of breath at rest. D enies S hortness of breath with exertion. G astrointestinal: Patient complaining of i ncreased gas. D enies A bdominal pain. D enies C onstipation. D enies D iarrhea. D enies N ausea. * Medical History: * Surgical History: * Hospitalization/Major Diagno stic Procedure: * Medications: T akingPepcid AC 10 MG Tablet 1 tablet as needed Orally Twice a day Triamcinolone Acetonide 0.1 % Cream 1 application Externally Twice a day Omeprazole 20 MG Capsule Delayed Release 1 capsule Orally Once a day Atorvastatin Calcium 40 MG Tablet 1 tablet Orally Once a day Taking Pepcid AC 10 MG Tablet 1 tablet as needed Orally Twice a day Taking Triamcinolone Acetonide 0.1 % Cream 1 application Externally Twice a day Taking Omeprazole 20 MG Capsule Delayed Release 1 capsule Orally Once a day Taking Atorvastatin Calcium 40 MG Tablet 1 tablet Orally Once a day Not-Taking/PRNamLODIPine Besylate 5 [...] Vitals: H t: 70.5, Wt: 187, BMI:26.45, BP:114/66, Wt-k.82. * Examination: G eneral Examination: EYES: l eft eye with a stye. SKIN: g ood turgor. HEART: r egular rate and rhythm, no murmurs, rubs, gallops.? LUNGS: n o wheezes, rales, rhonchi, good air movement, clear to auscultation bilaterally. Assessment: * Assessment: 1. H ypercholesterolemia - E78.00 (Primary) 2 . A therosclerosis of abdominal aorta - I70.0 3 . P VC (premature ventricular contraction) - I49.3 4 . H ordeolum externum left upper eyelid - H00.014 Plan: * Treatment: 2. A therosclerosis of abdominal aorta Notes: should get ldl to 75 3. P VC (premature ventricular contraction) Notes: no significance 4. H ordeolum externum left upper eyelid Start Ofloxacin Solution, 0.3 %, 2 drops, Ophthalmic, 3 times a day, 10 days, 3 ML. Notes: patient verbalized understanding of medication and directions for use * Procedure Codes: * * Sign off status: Completed true * Provider: Dane Vyas MD Date: 0 12/14/2024 Generated for Johny hart/Hanane/Severino on: 04/28/2024 03:05 PM EST History and Physical Notes * HPI (History of Present Illness) Category Sub-Category Detail Notes Category Not es Symptom(s) patient is a 64 yo male here for follow up from recent ER visit/ had irregular pulse and some numbness in face. comes and goes.ecg with extra heart beats. has been under a lot of stress. now has a sty Examination Category Sub-Category Detail Notes Category Not es General Examination EYES: left eye with a stye HEART: regular rate and rhy thm, no murmurs, rubs, gallops LUNGS: no wheezes, rales, r honchi, good air movement, clear to auscultation bilaterally SKIN: good turgor
--- OUTSIDE RECORDS SUMMARY | 2025-01-07 02:30 | XMS_ITS ---
Author Organization Chencho Vyas MD Address [address] [place], [place] [phone] Care Team Providers Care Buffer Operator Name Role Phone Chencho Vyas Primary Care Provider Results Component Value Reference Range Notes Liver Panel Reviewed date:01/07/2025 12:47:40 PM Interpretation: Performing Lab:[facility], [address] [place] [phone] Notes/Report: Bilirubin Total 1.7 0.0-1.0 mg/dL Slight Icte rita. Bilirubin Direct 0.6 0.0-0.5 mg/dL Slight Ict erus. Aspartate Amino Transferase 46 5-37 U/L Alanine Aminotransferase 60 0-40 U/L Total Protein 7.0 6.5-8.0 g/dL Albumin Level 4.5 3.5-5.0 g/dL Alkaline Phosphatase 236 39-117 U/L Lipid Panel Reviewed date:01/07/2025 12:19:23 PM Interpretation: Performing Lab:[facility], [address] [place] [phone] Notes/Report: Triglycerides 122 <150 mg/dL Desirable Triglyceride: less than 150 mg/dL Borderline High Triglyceride 150-199 mg/dL High Triglyceride: 200-499 mg/dL Very High Triglyceride: greater than or equal to 5OO mg/dL Cholesterol 183 <200 mg/dL Desirable Cholesterol: less than 200 mg/dL Borderline High Cholesterol: 200-239 mg/dL High Cholesterol: greater than 239 mg/dL LDL Cholesterol Calculated 94 <100 mg/dL Desirable LDL: less than 100 mg/dL Near Optimal/Above Optimal LDL: 110-129 mg/dL Borderline High LDL: 130-159 mg/dL High LDL: 160-189 mg/dL Very High LDL: greater than or equal to 190 mg/dL HDL Cholesterol 65 >40 mg/dL Desirable HDL: greater than 40 mg/dL Note: This HDL assay may give artificially low results in patients with liver disease. REASON FOR VISIT fasting lipids liver Encounters Encounter Location Date Provider Diagnosis Chencho Vyas MD [address] [place] [address] [place] [phone] 01/07/2025 Chencho Vyas Hypercholesterolemia E78.00 and Atherosclerosis I70.90 Assessments Encounter Date Diagnosis (ICD Code) Assessment Notes Treatment Notes Treatment Clinical Notes Section Notes 01/07/2025 Hypercholesterolemia (ICD-10 - E78.00) 01/07/2025 Atherosclerosis (ICD -10 - I70.90) Plan Of Treatment Next Appt Details Provider Name:Chencho garay, 03/05/2025 10:30:00 AM, [address] [place] [address], [address], [phone], Provider Name:Chencho garay, 04/06/2025 10:15:00 AM, [address] [place] [address], [address], [phone], Provider Name:Chencho garay, 10/05/2025 07:00:00 AM, [address] [place] [address], [address], [phone], Provider Name:Chencho garay, 10/12/2025 10:30:00 AM, [address] [place] [address], [address], [phone], Progress Notes * María BANDA:1960 (64 yo M)Acc No.[id number]:01/07/2025 Progress Note Patient: Lio SOLOMON Provider: Dane Vyas MD :1960 A ge:64 Y S ex:Male Date:01/07/2025 Address:[address] [place], [place] [phone] Subjective: * Chief Complaints: * 1 . Fasting lipids liver. * Medical History: Objective: * Vitals: Assessment: * Assessment: 1. H ypercholesterolemia - E78.00 (Primary) 2 . A therosclerosis - I70.90? Plan: * Treatment: * Procedure Codes: 3 6415 VENIPUNCT, ROUTINE* * * The named appointment provid er may or may not be the originator of this progress note, and it is not deemed complete until electronically signed by the appointment provider. Sign off status: Pending * Provider: Dane Vyas MD Date: 0 01/07/2025 Generated for Johny hart/Hanane/Angelicaitting on: 04/28/2024 03:06 PM EST
--- OUTSIDE RECORDS SUMMARY | 2025-01-15 05:15 | XMS_ITS ---
Author Organization Chencho Vyas MD Address [address] [place], [place] [phone] Care Team Providers Care Software Program Manager Name Role Phone Chencho Vyas Primary Care Provider Allergies No Known Allergies Results Component Value Reference Range Notes Liver Panel Reviewed date:01/15/2025 04:27:12 PM Interpretation: Performing Lab:[facility], [address] [place] [phone] Notes/Report: Bilirubin Total 1.5 0.0-1.0 mg/dL Bilirubin Direct 0.5 0.0-0.5 mg/dL Aspartate Amino Transferase 58 5-37 U/L Mild Hemolysis.Interpret result with caution Alanine Aminotransferase 68 0-40 U/L Total Protein 7.5 6.5-8.0 g/dL Mild Hemolysis .Interpret result with caution Albumin Level 4.3 3.5-5.0 g/dL Alkaline Phosphatase 256 39-117 U/L REASON FOR VISIT 3 month, Recheck LFT, FReturning 01-18-25 for Flu vaccine Medications Medication SIG (Take, Route, Frequency, Duration) Notes Start Date End Date Status Ofloxacin 0.3 % 2 drops Ophthalmic 3 times a day for 10 days 12/14/2024 Not-Taki ng Omeprazole 20 MG 1 capsule Orally Onc a day 11/04/2018 Active Triamcinolone Acetonide 0.1 % 1 application Externally Twice a day for 30 days 09/25/2022 Active PARoxetine HCl 10 MG 1 tablet in the mor amri Orally Once a day for 30 day(s) Not-Taking Pepcid AC 10 MG 1 tablet as needed Orally Twice a day Active amLODIPine Besylate 5 MG 1 tablet Orally Once a day for 30 day(s) Not-Taking Atorvastatin Calcium 40 MG TAKE 1 TABLET BY MOUTH EVERY DAY FOR 30 DAYS for 90 Active Vital Signs Blood pressure systolic 120 mm Hg 01/16/20 25 Blood pressure diastolic 60 mm Hg 025 Height 70.5 in 01/15/2025 Weight 189 lbs 01/15/2025 BMI 26.73 kg/m2 01/15/2025 Encounters Encounter Location Date Provider Diagnosis Chencho Vyas MD [address] [place] [phone] 01/15/2025 Chencho Vyas Elevated liver function tests R79.89 Assessments Encounter Date Diagnosis (ICD Code) Assessment Notes Treatment Notes Treatment Clinical Notes Section Notes 01/15/2025 Elevated liver function tests (ICD-10 - R79.89) is probably related to his statins will hold tthe statin and recheck in 6 weeks Plan Of Treatment Treatment Notes Assessment Notes Elevated liver function tests is probabl y related to his statins will hold tthe statin and recheck in 6 weeks Next Appt Details Provider Name:Chencho garay, 03/05/2025 10:30:00 AM, [address] [place] [address], [address], [phone], Provider Name:Chencho garay, 04/06/2025 10:15:00 AM, [address] [place] [address], [address], [phone], Provider Name:Chencho garay, 10/05/2025 07:00:00 AM, [address] [place] [address], [address], [phone], Provider Name:Chencho garay, 10/12/2025 10:30:00 AM, [address] [place] [address], [address], [place], [place], [phone], Progress Notes * Syl BANDAOB:1960 (64 yo M)Acc No.[id number]:01/15/2025 Progress Notes Patient: Lio SOLOMON Provider: Dane Vyas MD :1960 A ge:64 Y S ex:Male Date:01/15/2025 Address:[address] [place], [place] [phone] Subjective: * Chief Complaints: * 3 monthRecheck LFTFReturning 01-18-25 for Flu vaccine * HPI: S ymptom(s): patient is a 64 yo male here for 3 month follow up visit/ doing well. * ROS: G eneral/Constitutional: Denies C hills. [...] a day Atorvastatin Calcium 40 MG Tablet TAKE 1 TABLET BY MOUTH EVERY DAY FOR 30 DAYS Taking Pepcid AC 10 MG Tablet 1 tablet as needed Orally Twice a day Taking Triamcinolone Acetonide 0.1 % Cream 1 application Externally Twice a day Taking Omeprazole 20 MG Capsule Delayed Release 1 capsule Orally Once a day Taking Atorvastatin Calcium 40 MG Tablet TAKE 1 TABLET BY MOUTH EVERY DAY FOR 30 DAYS Not-Taking/PRNOfloxacin 0.3 % Solution 2 drops Ophthalmic 3 times a day amLODIPine Besylate 5 MG Tablet 1 tablet Orally Once a day PARoxetine HCl 10 MG Tablet 1 tablet in the morning Orally Once a day Medication List reviewed and reconciled with the patientNot-Taking/PRN Ofloxacin 0.3 % Solution 2 drops Ophthalmic 3 times a day Not-Taking/PRN amLODIPine Besylate 5 MG Tablet 1 tablet Orally Once a day Not-Taking/PRN PARoxetine HCl 10 MG Tablet 1 tablet in the morning Orally Once a day Medication List reviewed and reconciled with the patient * Allergies: N .K.D.A.yes[Allergies Verified] Objective: * Vitals: H t: 70.5, Wt: 189, BMI:26.73, BP:120/60, Wt-k.73. * P ast Orders: L ab:Liver Panel (Order Date - 01/07/2025) (Collection Date & Time - 01/07/2025 07:30 AM) Value Reference Range Bilirubin Total 1.7 H 0.0-1.0 - mg/dL Bilirubin Direct 0.6 H 0.0-0.5 - mg/dL Aspartate Amino Transferase 46 H 5-37 - U/L Alanine Aminotransferase 60 H 0-40 - U/L Total Protein 7.0 6.5-8.0 - g/dL Albumin Level 4.5 3.5-5.0 - g/dL Alkaline Phosphatase 236 H 39-117 - U/L L ab:Lipid Panel (Order Date - 01/07/2025) (Collection Date & Time - 01/07/2025 07:30 AM) Value Reference Range Triglycerides 122 <150 - mg/dL Cholesterol 183 <200 - mg/dL LDL Cholesterol Calculated 94 <100 - mg/dL HDL Cholesterol 65 >40 - mg/dL * Examination: G eneral Examination: GENERAL APPEARANCE: a lert, well hydrated, in no distress.? HEAD: n ormocephalic. SKIN: g ood turgor. HEART: r egular rate and rhythm, no murmurs, rubs, gallops.? LUNGS: n o wheezes, rales, rhonchi, good air movement, clear to auscultation bilaterally. ABDOMEN: s oft, nontender, nondistended, no organomegaly.? Assessment: * Assessment: 1. E levated liver function tests - R79.89 (Primary) Plan: * Treatment: * Procedure Codes: 3 6415 VENIPUNCT, ROUTINE* * * Sign off status: Completed true * Provider: Dane Vyas MD Date: 0 01/15/2025 Generated for Johny hart/Hanane/Severino on: 1 04/28/2024 03:05 PM EST History and Physical Notes * HPI (History of Present Illness) Category Sub-Category Detail Notes Category Not es Symptom(s) patient is a 64 yo male here for 3 month follow up visit/ doing well Examination Category Sub-Category Detail Notes Category Not es General Examination GENERAL APPEARANCE: alert, w ell hydrated, in no distress HEAD: normocephalic HEART: regular rate and rhy thm, no murmurs, rubs, gallops LUNGS: no wheezes, rales, r honchi, good air movement, clear to auscultation bilaterally ABDOMEN: soft, nontender, non distended, no organomegaly SKIN: good turgor
--- OUTSIDE RECORDS SUMMARY | 2025-01-18 06:00 | XMS_ITS ---
Author Organization Chencho Vyas MD Address [address] [place] [phone] Care Team Providers Care Confectionery Drops Machine Operator Name Role Phone Chencho Vyas Primary Care Provider REASON FOR VISIT Flu vac Immunizations Vaccine Route Administration Date Status Comme nts Fluarix Quadrivalent - 150 IM Intramuscular 01/18/2025 Adm inistered Encounters Encounter Location Date Provider Diagnosis Chencho Vyas MD 10 [facility] [address] [place] [phone] 01/18/2025 Chencho Vyas Encounter for administration of vaccine Z23 Assessments Encounter Date Diagnosis (ICD Code) Assessment Notes Treatment Notes Treatment Clinical Notes Section Notes 01/18/2025 Encounter for administration of vaccine (ICD-10 - Z23) Plan Of Treatment Next Appt Details Provider Name:Chencho garay, 03/05/2025 10:30:00 AM, [address] [place] [address], [address], [phone], Provider Name:Chencho garay, 04/06/2025 10:15:00 AM, [address] [place] [address], [address], [phone], Provider Name:Chencho Schilling ier, 10/05/2025 07:00:00 AM, [address], Suite [facility], [place], [place], [phone], Provider Name:Chencho Schilling ier, 10/12/2025 10:30:00 AM, [address], [address], [place], [place], [phone], Progress Notes * Syl BANDAOB:1960 (64 yo M)Acc No.[id number]:01/18/2025 Progress Note Patient: Lio SOLOMON Provider: Dane Vyas MD :1960 A ge:64 Y S ex:Male Date:01/18/2025 Address:[address] [place], [place] [phone] Subjective: * Chief Complaints: * 1 . Flu vac. * Medical History: Objective: * Vitals: Assessment: * Assessment: 1. E ncounter for administration of vaccine - Z23 (Primary) Plan: * Treatment: * Immunizations: Fluarix Quadrivalent - 150 : 0.5 mL (Dose No:1) (Route: Intramuscular) given by Violet Culp , Office Staff on Left Deltoid * Procedure Codes: 9 0656 FLU VACCINE NO PRESERV 3 & >, 21809 IMMUNIZATION ADMIN * * The named appointment provid er may or may not be the originator of this progress note, and it is not deemed complete until electronically signed by the appointment provider. Sign off status: Pending * Provider: Dane Vyas MD Date: 0 01/18/2025 Generated for Johny hart/Hanane/Ashkansmitting on: 04/28/2024 03:05 PM EST
--- OUTSIDE RECORDS SUMMARY | 2025-01-18 07:18 | XMS_ITS ---
Author Organization Chencho Vyas MD Address [address] [place] [phone] Care Team Providers Care Antique Finisher Name Role Phone Chencho Vyas Primary Care Provider [phone] REASON FOR VISIT labs Encounters Encounter Location Date Provider Diagnosis Chencho Vyas MD 10 [facility] [address] [place] [phone] 01/18/2025 Chencho Vyas Plan Of Treatment Next Appt Details Provider Name:Chencho Schilling ier, 03/05/2025 10:30:00 AM, [address] [place] [address], [address] [place] [address], [phone], Provider Name:Chencho Schilling ier, 04/06/2025 10:15:00 AM, [address] [place] [address], [address], [phone], Provider Name:Chencho garay, 10/05/2025 07:00:00 AM, [address] [place] [address], [address], [phone], Provider Name:Chencho garay, 10/12/2025 10:30:00 AM, [address] [facility] [address], [address], [place], [place], [phone], Progress Notes * Jaziel BANDABingOB:1960 (64 yo M)Acc No.[id number]:01/18/2025 Patient: Lio SOLOMON :1960 A ge:64 Y S ex:Male Address:[address] [place] [address], [place] [address] * true * Date: Generated for Johny hart/Hanane/eTransmitting on: 04/28/2024 03:05 PM EST
--- OUTSIDE RECORDS SUMMARY | 2025-02-26 02:30 | XMS_ITS ---
Author Organization Chencho Vyas MD Address [address] [place] [phone] Care Team Providers Care Press Tender Star Signal Name Role Phone Chencho Vyas Primary Care Provider [phone] Results Component Value Reference Range Notes Liver Panel Reviewed date:02/26/2025 02:06:50 PM Interpretation: Performing Lab:[facility], [address] [place] [id number] Notes/Report: Bilirubin Total 1.4 0.0-1.0 mg/dL Bilirubin Direct 0.5 0.0-0.5 mg/dL Aspartate Amino Transferase 48 5-37 U/L Alanine Aminotransferase 66 0-40 U/L Total Protein 7.1 6.5-8.0 g/dL Albumin Level 4.4 3.5-5.0 g/dL Alkaline Phosphatase 234 39-117 U/L REASON FOR VISIT liver panel Encounters Encounter Location Date Provider Diagnosis Chencho Vyas MD [address] [place] [phone] 02/26/2025 Chencho Vyas Elevated liver function tests R79.89 Assessments Encounter Date Diagnosis (ICD Code) Assessment Notes Treatment Notes Treatment Clinical Notes Section Notes 02/26/2025 Elevated liver function tests (ICD-10 - R79.89) Plan Of Treatment Next Appt Details Provider Name:Chencho Schilling ier, 03/05/2025 10:30:00 AM, [address], Suite [facility], [place], [place], [phone], Provider Name:Chencho Schilling ier, 04/06/2025 10:15:00 AM, [address] [facility], Suite [facility], [place], [place], [phone], Provider Name:Chencho Schilling ier, 10/05/2025 07:00:00 AM, [address] [facility], Suite [facility], [place], [place], [phone], Provider Name:Chencho Schilling ier, 10/12/2025 10:30:00 AM, [address] [place] [address], Suite [facility], [place], [place], [phone], Progress Notes * Syl BANDAOB:1960 (64 yo M)Acc No.[id number]:02/26/2025 Progress Note Patient: Lio SOLOMON Provider: Dane Vyas MD :1960 A ge:64 Y S ex:Male Date:02/26/2025 Address:[address] [place], [place] [phone] Subjective: * Chief Complaints: * 1 . Liver panel. * Medical History: Objective: * Vitals: Assessment: * Assessment: 1. E levated liver function tests - R79.89 (Primary) Plan: * Treatment: * Procedure Codes: 3 6415 VENIPUNCT, ROUTINE* * * The named appointment provid er may or may not be the originator of this progress note, and it is not deemed complete until electronically signed by the appointment provider. Sign off status: Pending * Provider: Dane Vyas MD Date: 04/28/2024 Generated for Johny hart/Hanane/Ashkansmitting on: 04/28/2024 03:06 PM EST
[2025-02-26 13:36] LABS: Alanine Aminotransferase 66 U/L (0-40); Albumin Level 4.4 g/dL (3.5-5.0); Alkaline Phosphatase 234 U/L (39-117); Aspartate Amino Transferase 48 U/L (5-37); Total Protein 7.1 g/dL (6.5-8.0)
--- OUTSIDE RECORDS SUMMARY | 2025-02-26 15:06 | XMS_ITS | Patient Health Record ---
Author Organization [facility] Address [address] [place] [address] Care Team Providers Care Meat Carver Name Role Phone Chencho Vysa MD Primary Care Provider Juan Lock Unavailable [phone] Allergies No Known Allergies Reason For Referral No Information Medications Medication SIG (Take, Route, Fr equency, Duration) Notes Start Date End Date Status Omeprazole 20 MG TAKE 1 CAPSULE BY [facility] EVERY DAY; Duration: 90 Active Immunizations Vaccine Route Administration Date [...] W/U Status Risk Notes Problem Esophageal reflux (404240373) Esophageal reflux (K21.9) Active confirmed Problem Abnormal feces (759832372) Heme + stool (R19.5) Active confirmed Problem Gastritis (5236266) Gastritis (K29.70) Active c onfirmed Problem Diverticulosis of colon (475518256) Diverticulosis of colon (K57.30) Active confirmed Problem Gastroesophageal reflux disease (471186992) Gastroesophageal reflux disease, unspecified whether esophagitis present (K21.9) Active confirmed Encounters Encounter Location Date Provider Diagnosis [facility] [address] [place] [phone] 04/23/2024 Juan Aguilar [facility] [address] [place] [phone] 04/23/2024 Juan Aguilar [facility] [address] [place] [phone] 04/24/2024 Juan Aguilar Plan Of Treatment Future Test Test Name Order Date UPPER GI ENDOSCOPY 10/02/2022 COLONOSCOPY 10/02/2022 Insurance Providers Payer Name Payer Address Payer Phone Subscriber Number Group Number Insured Name Patient Relationship to Insured Coverage Start Date Coverage End Date [facility] [place] [employer] PROF[employer]AL [place]S [address] [place] [address] [id number] SOLO CYNDY Self - patient is the insured Medical (General) History Medical History History ICD Code GERD Colonoscopy 04/2009 with a hy perplastic polyp---told of needing a 10 year follow up Denies [place],DM,CVA,Lung disease,renal dise ase Surgical History Surgery Date(Month/Year) Left inguinal hernia surgery x 2 in 2018 and 2020--2020 was with a mesh--Dr. Ford. Has an appt with Dr. Bergman at [facility] for a 2nd opinion
--- OUTSIDE RECORDS SUMMARY | 2025-02-26 15:06 | XMS_ITS | Patient Health Record ---
Author Organization Chencho Vyas MD Address [address] [place], [place] [id number] Care Team Providers Care Office Correspondent Name Role Phone Chencho Vyas Primary Care Provider [phone] Allergies No Known Allergies Results Component Value Reference Range Notes Liver Panel Reviewed date:03/27/2024 03:00:10 PM Interpretation: Performing Lab:[facility], [address] [place] [phone] Notes/Report: Bilirubin Total 1.3 0.0-1.0 mg/dL Bilirubin Direct 0.4 0.0-0.5 mg/dL Aspartate Amino Transferase 33 5-37 U/L Alanine Aminotransferase 29 0-40 U/L Total Protein 7.0 6.5-8.0 g/dL Albumin Level 4.2 3.5-5.0 g/dL Alkaline Phosphatase 76 39-117 U/L Glucose Fasting Reviewed date:03/27/2024 03:00:58 PM Interpretation: Performing Lab:[facility], [address] [place] [phone] Notes/Report: Glucose Fasting 92 60-99 mg/dL Lipid Panel with Reflex Reviewed date:03/30/2024 12:58:01 PM Interpretation: Performing Lab:[facility], [address] [place] [phone] Notes/Report: Triglycerides 96 <150 mg/dL Desirable Triglyceride: [...] A1c Reviewed date:03/27/2024 12:24:19 PM Interpretation: Performing Lab:[facility], [address] [place] [phone] Notes/Report: Hemoglobin A1c % 5.3 <6.0 % [...] average glucose, using the formula of the W0P-Entrska Average Glucose study (ADAG), Diabetes Care, Vol.31,#8, Nov. 2007 Complete Blood Count Auto Di ff Reviewed date:05/01/2024 05:17:29 PM Interpretation: Performing Lab:[facility], [address] [place] [phone] Notes/Report: White Blood Count 6.1 4.8-10.8 X10*3/uL [...] ff Reviewed date:09/28/2024 12:44:24 PM Interpretation: Performing Lab:[facility], [address] [place] [phone] Notes/Report: White Blood Count 6.6 4.8-10.8 X10*3/uL [...] NRBC Abs Auto 0.000 0.0-0.012 X10*3/uL Comprehensive Prentiss. Panel Fa st Reviewed date:09/28/2024 05:05:16 PM Interpretation: Performing Lab:[facility], [address] [place] [phone] Notes/Report: Sodium 141 135-145 mmol/L Potassium 4.3 [...] Panel Reviewed date:09/28/2024 12:25:19 PM Interpretation: Performing Lab:[facility], [address] [place] [phone] Notes/Report: Triglycerides 147 <150 mg/dL Desirable Triglyceride: [...] (Free>4and<10) Reviewed date:09/28/2024 12:24:38 PM Interpretation: Performing Lab:[facility], [address] [place] [phone] Notes/Report: PSA,Total (Free>4and<10) 0.52 0.00-4.00 ng/mL A [...] Random Reviewed date:09/28/2024 12:24:53 PM Interpretation: Performing Lab:[facility], [address] [place] [phone] Notes/Report: Creatinine Urine 129.95 Microalbumin Urine < 5.0 Microalbum/Creatinine Ratio Ur TNP <30 ug/mg cr Unable to calculate albumin/creatinine ratio due to low microalbumin or creatinine result. Hemoglobin A1c Reviewed date:09/28/2024 12:25:09 PM Interpretation: Performing Lab:[address] [phone] Notes/Report: Hemoglobin A1c % 5.3 <6.0 % [...] average glucose, using the formula of the V1Y-Uxdgiyd Average Glucose study (ADAG), Diabetes Care, Vol.31,#8, Nov. 2007 UA ClnCatch+Micro w/rflx Cul t Reviewed date:09/28/2024 05:04:45 PM Interpretation: Performing Lab:[facility], [address] [place] [phone] Notes/Report: Urine, Clean Catch Color Urine Dark Yellow Appearance Urine Clear PH 7.5 5.0-9.0 Glucose Urine UA Negative Negative mg/dL Urine Blood Negative Negative Specific [place] - Urine 1.020 1.005-1.025 Urine Protein Negative Neg-Trace mg/dL Urine Ketones Negative Negative mg/dL Nitrite Urine Negative Negative Leukocyte Esterase Urine Negative Negative RBC Urine 0-2 0-2 /HPF WBC Urine 0-5 0-5 /HPF Squamous Epithelial Cell Urine 0-2 0-2 /HPF Bacteria Urine None Seen None Seen Hyaline Casts Urine 0-2 0-2 /LPF Liver Panel Reviewed date:01/07/2025 12:47:40 PM Interpretation: Performing Lab:[address] [phone] Notes/Report: Bilirubin Total 1.7 0.0-1.0 mg/dL Slight Icte rita. Bilirubin Direct 0.6 0.0-0.5 mg/dL Slight Ict erus. Aspartate Amino Transferase 46 5-37 U/L Alanine Aminotransferase 60 0-40 U/L Total Protein 7.0 6.5-8.0 g/dL Albumin Level 4.5 3.5-5.0 g/dL Alkaline Phosphatase 236 39-117 U/L Lipid Panel Reviewed date:01/07/2025 12:19:23 PM Interpretation: Performing Lab:[address] [phone] Notes/Report: Triglycerides 122 <150 mg/dL Desirable Triglyceride: [...] low results in patients with liver disease. Liver Panel Reviewed date:02/26/2025 02:06:50 PM Interpretation: Performing Lab:[facility], [address] [place] [phone] Notes/Report: Bilirubin Total 1.4 0.0-1.0 mg/dL Bilirubin Direct 0.5 0.0-0.5 mg/dL Aspartate Amino Transferase 48 5-37 U/L Alanine Aminotransferase 66 0-40 U/L Total Protein 7.1 6.5-8.0 g/dL Albumin Level 4.4 3.5-5.0 g/dL Alkaline Phosphatase 234 39-117 U/L XR lumbar spine 2-3V Reviewed date:10/16/2024 10:45:43 AM Interpretation:10-16-2024 Performing Lab: Notes/Report: [address] [address] XRay Report Signed Patient: Lio Banda MR#: [id number] 64 : 1960 Acct:[id number] Age/Sex: 63 / M ADM Date: 10/05/24 Loc: COLLEEN Attending Dr: Chencho Vyas MD Ordering Physician: Chencho Vyas MD Date of Service: 10/05/24 Procedure(s): XR lumbar spine 2-3V Accession Number(s): [id number] cc: Chencho Vyas MD EXAMINATION: XR LUMBOSACRAL SPINE CLINICAL INFORMATION: BACK PAIN COMPARISON: None available. TECHNIQUE: Three views of the lumbosacral spine. FINDINGS: There are 5 nonrib-bearing lumbar segments. There is mild degenerative changes of the SI joints. There is telp-iw-lqrwitzg atherosclerotic calcification in the abdominal aorta. T12-L1: [...] 10/05/24 1133 DD/ 1120 TD/TT: 10/05/24 1127 Customer Engagement Specialist: [address] [address] XRay Report Signed Patient: Jerome Banda MR#: [id number] 64 : 1960 Acct:[id number] Age/Sex: 63 / M ADM Date: 10/05/24 Loc: H[facility] Attending Dr: Chencho Vyas MD Ordering Physician: Chencho Vyas MD Date of Service: 10/05/24 Procedure(s): XR lum bar spine 2-3V Accession Number(s): [id number] cc: Chencho Vyas MD EXAMINATION: XR LUMBOSACRAL SPINE CLINICAL INFORMATION: BACK PAIN COMPARISON: None available. TECHNIQUE: Three views of the lumbosacral spine. FINDINGS: There are 5 nonrib-bearing lumbar segments. There is mild degenerative changes of the SI joints. There is exun-wx-xfctygss atherosclerotic calcification in the abdominal aorta. T12-L1: [...] 10/05/24 1133 DD/ 1120 TD/TT: 10/05/24 1127 Customer Engagement Specialist: Liver Panel Reviewed date:01/15/2025 04:27:12 PM Interpretation: Performing Lab:[facility], [address] [place] [phone] Notes/Report: Bilirubin Total 1.5 0.0-1.0 mg/dL Bilirubin Direct 0.5 0.0-0.5 mg/dL Aspartate Amino Transferase 58 5-37 U/L Mild Hemolysis.Interpret result with caution Alanine Aminotransferase 68 0-40 U/L Total Protein 7.5 6.5-8.0 g/dL Mild Hemolysis.Interpret result with caution Albumin Level 4.3 3.5-5.0 g/dL Alkaline Phosphatase 256 39-117 U/L Hold Gold Reviewed date:03/27/2024 12:24:37 PM Interpretation: Performing Lab:[facility], [address] [place] [phone] Notes/Report: Hold [facility] See Note Specimen held untested for 24 hours; Call to request Chemistry testing. Complete Blood Count Auto Di ff Reviewed date:05/01/2024 10:19:41 AM Interpretation:see back 05-01-24 Performing Lab:[facility], [address] [place] [phone] Notes/Report: White Blood Count 2.8 4.8-10.8 X10*3/uL [...] INR Reviewed date:04/14/2024 04:20:07 PM Interpretation: Performing Lab:[facility], [address] [place] [phone] Notes/Report: Prothrombin Time 12.7 10.9-12.4 SEC [employer] [...] Panel Reviewed date:04/16/2024 12:33:21 PM Interpretation: Performing Lab:[facility], [address] [place] [phone] Notes/Report: Sodium 135 135-145 mmol/L Potassium 3.3 [...] Magnesium Reviewed date:04/14/2024 04:14:56 PM Interpretation: Performing Lab:[facility], [address] [place] [phone] Notes/Report: Magnesium 2.1 1.6-2.6 mg/dL Troponin-I High Sensitivity Reviewed date:04/14/2024 04:19:58 PM Interpretation: Performing Lab:[facility], [address] [place] [phone] Notes/Report: Troponin-I High Sensitivity 3.3 <3.5-35.0 ng/L The Arias high sensitivity Troponin-I results should be used in conjunction with other diagnostic information such as ECG, clinical observations and information, and patient symptoms to aid in the diagnosis of CA. Lipase Reviewed date:04/14/2024 04:19:06 PM Interpretation: Performing Lab:[facility], [address] [place] [phone] Notes/Report: Lipase 27 8-78 U/L SARS-CoV2/FLU/RSV Reviewed date:04/14/2024 04:18:49 PM Interpretation: Performing Lab:[address] [phone] Notes/Report: Influenza A PCR NEGATIVE Negative Influenza [...] by authorized laboratories. Testing performed on the Cepheid GeneXpert utilizing real-time RT-PCR. All SARS CoV2 and positive influenza A/B results are reported to [facility]. XR chest 2V Reviewed date:04/14/2024 04:15:26 PM Interpretation: Performing Lab: Notes/Report: [address] [address] XRay Report Signed Patient: Lio Banda MR#: [id number] 64 : 1960 Acct:[id number] Age/Sex: 63 / M ADM Date: 04/14/24 Loc: HO.ED Attending Dr: Ordering Physician: Rubina Nuno MD Date of Service: 04/14/24 Procedure(s): XR chest 2V Accession Number(s): [id number] cc: Chencho Vyas MD; Rubina Nuno MD [...] by: Tin Strickland MD 04/14/2024 12:19 PM [facility] Dictated By: Tin Strickland MD Signed By: <Electronically signed by Tin Strickland MD in OV> 04/14/24 1219 DD/ 1129 TD/TT: 04/14/24 1154 Customer Engagement Specialist: [address] [address] XRay Report Signed Patient: Jerome Banda MR#: [id number] 64 : 1960 Acct:[id number] Age/Sex: 63 / M ADM Date: 04/14/24 Loc: .ED Attending Dr: Ordering Physician: Rubina Nuno MD Date of Service: 04/14/24 Procedure(s): XR prashant st 2V Accession Number(s): [id number] cc: Chenhco Vyas MD; Rubina Nuno MD EXAMINATION: XR [...] by: Tin Strickland MD 04/14/2024 12:19 PM [facility] Dictated By: Tin Strickland MD Signed By: <Electronically signed by Tin Strickland MD in OV> 04/14/24 1219 DD/ 1129 TD/TT: 04/14/24 1154 Customer Engagement Specialist: CT head/brain wo con Reviewed date:12/08/2024 10:05:50 AM Interpretation: Performing Lab: Notes/Report: [address] [address] [address] Scan Report Signed Patient: Lio Banda MR#: [id number] 64 : 1960 Acct:[id number] Age/Sex: 64 / M ADM Date: 12/07/24 Loc: .ED Attending Dr: Ordering Physician: [facility] ED Physician Date of Service: 12/07/24 Procedure(s): CT head/brain wo IV con Accession Number(s): [id number] cc: Chencho Vyas MD; [facility] ED Physician Report Number: [id number]: Total DLP = 610.00 mGy-cm CLINICAL HISTORY: [...] in OV> 12/07/242228 DD/ 27 TD/TT: 12/07/242227 Customer Engagement Specialist: [address] [address] [address] Scan Report Signed Patient: Jerome Banda MR#: [id number] 64 : 1960 Acct:[id number] Age/Sex: 64 / M ADM Date: 12/07/24 Loc: HO.ED Attending Dr: Ordering Physician: Generic ED Physician Date of Service: 12/07/24 Procedure(s): CT head/brain wo IV con Accession Number(s): [id number] cc: Chencho Vyas MD; Generic ED Physician Report Number: [id number]: Total DLP = 610.00 mGy-cm CLINICAL HISTORY: [...] in OV> 12/07/242228 DD/ 27 TD/TT: 12/07/242227 Customer Engagement Specialist: Emeka Morales Reviewed date:01/15/2025 02:21:34 PM Interpretation: Performing Lab:[facility], [address] [place] [phone] Notes/Report: Emeka Morales See Note Specimen held [...] Quadrivalent - 150 IM Intramuscular 12/30/2023 Administered Fluarix Quadrivalent - 150 IM Intramuscular 01/18/2025 Administered Flu Vaccine Unknown 06/15/2014 Refused Covid [...] Risk Notes Problem Ventricular premature complex (disorder) (783447901) PVC (premature ventricular contraction) (I49.3) Active confirmed Problem Lymphocytosis (87214268) Lymphocytosis (D72.820) Active confirmed Problem 00459245 Prostatism (N40.0) Active confirmed Problem Atherosclerosis of abdominal aorta (548691949) Atherosclerosis of abdominal aorta (I70.0) Active confirmed Problem 621200517 Bergman's esopha 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 (K22.70) Active confirmed Problem Prediabetes (046236525) Prediabetes (R73.09) Active confirmed Problem Benign essential hypertension (6981857) Benign essential hypertension (I10) Active confirmed Problem 80259207 Stress (F43.9) Active confirmed Problem Right bundle branch block (20865667) Right bundle branch block (I45.10) Active confirmed Problem Atherosclerosis (40032590) Atherosclerosis (I70.90) Active confirmed Problem 60540732 Hypercholesterol emia (E78.00) Active confirmed Problem 813126410 Left inguinal he rnia (K40.90) Active confirmed Problem 765972088 Indigestion (K30) Active confirmed Problem 654425319 Gastric reflux (K21.9) Active confirm ed Vital Signs Blood pressure diastolic 60 mm Hg 01/15/2025 Height 70.5 in 01/15/2025 Blood pressure systolic 120 mm Hg 01/15/2025 Weight 189 lbs 01/15/2025 BMI 26.73 kg/m2 01/15/2025 Encounters Encounter Location Date Provider Diagnosis Chencho Vyas MD [address] [place] [id number] 03/27/2024 Chencho Vyas Prediabetes R73.09 a nd Hypercholesterolemia E78.00 Chencho Vyas MD [address] [place] [id number] 05/01/2024 Chencho Vyas Lymphocytosis D72.82 0 Chencho Vyas MD [address] [place] [address] Drive [address] [place] [id number] 09/28/2024 Chencho Vyas Blood tests for rout ine general physical examination Z00.00 ; Prediabetes R73.09 ; Hypercholesterolemia E78.00 ; Lymphocytosis D72.820 and Benign essential hypertension I10 Chencho Vyas MD [address] [place] [id number] 10/16/2024 Chencho Vyas Atherosclerosis I70. 90 and Atherosclerosis of abdominal aorta I70.0 Chencho Vyas MD [address] [place] [id number] 01/07/2025 Chencho Vyas Hypercholesterolemia E78.00 and Atherosclerosis I70.90 Chencho Vyas MD [address] [place] [id number] 01/18/2025 Chencho Vyas Encounter for administration of vaccine Z23 Chencho Vyas MD [address] [place] [address] [id number] 02/26/2025 Chencho Vyas Elevated liver funct ion tests R79.89 Chencho Vyas MD [address] [place] [address] [id number] 04/02/2024 Chencho Vyas Hypercholesterolemia E78.00 ; Benign essential hypertension I10 ; Bergman's esophagus without dysplasia K22.70 and Prediabetes R73.09 Chencho Vyas MD [address] [place] [id number] 10/05/2024 Chencho Vyas Annual physical exam Z00.00 ; Back pain M54.9 ; Lymphocytosis D72.820 ; Benign essential hypertension I10 ; Bergman's esophagus without dysplasia K22.70 ; Prediabetes R73.09 ; Hypercholesterolemia E78.00 ; Colon cancer screening Z12.11 and Depression screening Z13.31 Chencho Vyas MD [address] [place] [id number] 12/14/2024 Chencho Vyas Hypercholesterolemia E78.00 ; Atherosclerosis of abdominal aorta I70.0 ; PVC (premature ventricular contraction) I49.3 and Hordeolum externum left upper eyelid H00.014 Chencho Vyas MD [address] [place] [id number] 01/15/2025 Chencho Vyas Elevated liver funct ion tests R79.89 Chencho Vyas MD [address] [place] [address] [id number] 10/19/2024 Chencho Vyas MD [address] [place], [place] [id number] 12/08/2024 Chencho Vyas MD [address] [place] [id number] 01/18/2025 Chencho Vyas Assessments Encounter Date Diagnosis (ICD [...] - I70.0) 01/07/2025 Hypercholesterolemia (ICD-10 - E78.00) 01/18/2025 Encounter for administration of vaccine (ICD-10 - Z23) 02/26/2025 Elevated liver funct ion tests (ICD-10 - R79.89) 04/02/2024 Hypercholesterolemia (ICD-10 - E78.00) just a [...] - I70.0) should get ldl to 75 01/15/2025 Elevated liver funct ion tests (ICD-10 - R79.89) is probably related to his statins will hold tthe statin and recheck in 6 weeks 09/28/2024 Prediabetes (ICD-10 - R73.09) 01/07/2025 Atherosclerosis [...] 08/15/2017 Next Appt Details Provider Name:Chencho garay, 03/05/2025 10:30:00 AM, [address] [place] [address], [address], [place], [id number], Provider Name:Chencho camposr, 04/06/2025 10:15:00 AM, [address] [place] [address], [address], [place], [id number], Provider Name:Chencho Schilling ier, 10/05/2025 07:00:00 AM, [address], [address], [place], [place], [phone], Provider Name:Chencho Schilling ier, 10/12/2025 10:30:00 AM, [address], [address], [place], [place], [id number], Insurance Providers Payer Name Payer Address Payer Phone Subscriber Number Group Number Insured Name Patient Relationship to Insured Coverage Start Date Coverage End Date [employer] [facility] [address] [place], [place] [id number] Lio Banda Self - patient is the insured [employer] [address] [place] [address] [id number] Lio Banda Self - patient is the [...]
== END 2025-02-26 12:56 | disposition home or self-care (01) ==
LOC: HO.LNP 12:55
PROVIDERS: Visit Provider Internal Medicine
DX: R79.89 Other specified abnormal findings of blood chemistry (principal)
CPT/HCPCS: 80076